=== PATIENT | female | born 1950 | race Caucasian/White ===

== ENCOUNTER 2016-12-18 11:35 | Inpatient (IN) | payer MEDICARE, OTHER ==
[~2016-12-18] VITALS: Ht 167.6 cm; Wt 47.3 kg
--- NOTE | 2016-12-18 11:41 | NUR ---
Pt arrived on unit via w/c accompanied by staff from [facility]. Belongings inventoried and bracelet sent to safe. Pt's speech is garbled and difficult to understand. Pt denied pain. She was tearful when discussing all of the recent transitions from [facility] to [facility] to here. Unable to assess orientation as she is difficult to understand. Per legal guardian, she is not to have any contact with her significant other Immanuel Barry at least for now since she is obsessive about calling him and that is one of her behaviors. Pt was compliant with assessment. Attempted to orient pt to unit and routines. Full code verified with legal guardian. Will continue to monitor.
[2016-12-18 12:21] VITALS: BP 106/73
[2016-12-18] MEDS ORDERED: MAG HYDROX/AL HYDROX/SIMETH 30 ML ORAL.SUSP PO PRN (12:30)
[2016-12-18] MEDS ORDERED: METHYL SALICYLATE/MENTHOL TOPICAL OINTMENT 29GM TUBE. TP PRN (12:30)
[2016-12-18] MEDS ORDERED: ACETAMINOPHEN 325 MG TABLET PO PRN (12:30)
[2016-12-18] MEDS ORDERED: ALBU2.5V14 NEB (13:27)
[2016-12-18] MEDS ORDERED: BACL10TA PO (13:27)
[2016-12-18] MEDS ORDERED: DIVA500T2 PO (13:29)
[2016-12-18] MEDS ORDERED: ERGO500027 PO (13:29)
[2016-12-18] MEDS ORDERED: POLY119P19 PO (13:33)
[2016-12-18] MEDS ORDERED: FLEC100T PO (13:33)
[2016-12-18] MEDS ORDERED: ASPI1TAB30 PO (13:33)
[2016-12-18] MEDS ORDERED: RISP0.5T3 PO (13:35)
[2016-12-18] MEDS ORDERED: METO25TA4 PO (13:35)
[2016-12-18] MEDS ORDERED: HYDR25CA75 PO (13:35)
[2016-12-18] MEDS ORDERED: SENN-37 PO (13:38)
[2016-12-18] MEDS ORDERED: TOPI25TA7 PO (13:38)
[2016-12-18] MEDS ORDERED: TRAM50TA PO (13:38)
[2016-12-18] MEDS ORDERED: ALBUTEROL SULFATE 2.5 MG/3 ML NEBU. NEB PRN (13:45)
[2016-12-18] MEDS ORDERED: ASA/APAP/CAFFEINE 250/250/65MG TABLET. PO PRN (13:45)
[2016-12-18 13:50] LABS: BASO # 0.1 x10^3/uL (0.0-0.2); BASO % 1 % (0-3); EOS # 0.2 x10^3/uL (0.0-0.7); EOS % 2 % (0-3); HEMATOCRIT 43.1 % (36.0-47.0); HEMOGLOBIN 14.4 g/dL (12.0-15.5); LYMPH # 1.5 x10^3/uL (1.0-4.8); LYMPH % 16 % (24-48); MEAN CORPUSCULAR HEMOGLOBIN 29 pg (25-35); MEAN CORPUSCULAR HGB CONC 33 g/dL (31-37); MEAN CORPUSCULAR VOLUME 86 fL (79-100); MONO # 0.8 x10^3/uL (0.0-1.1); MONO % 10 % (0-9); NEUT # 6.3 x10^3uL (1.8-7.7); NEUT % 72 % (31-73); PLATELET COUNT 277 x10^3/uL (140-400); RED BLOOD COUNT 5.02 x10^6/uL (3.50-5.40); RED CELL DISTRIBUTION WIDTH 13.8 % (11.5-14.5); WHITE BLOOD COUNT 8.9 x10^3/uL (4.0-11.0)
[2016-12-18 13:58] LABS: ALBUMIN 3.9 g/dL (3.4-5.0); ALBUMIN/GLOBULIN RATIO 1.1 (1.0-1.7); CALCIUM 8.7 mg/dL (8.5-10.1); GFR 55.5; MAGNESIUM 2.2 mg/dL (1.8-2.4); POTASSIUM 4.2 mmol/L (3.5-5.1); TOTAL BILIRUBIN 0.4 mg/dL (0.2-1.0); TOTAL PROTEIN 7.5 g/dL (6.4-8.2)
[2016-12-18 14:01] LABS: VAL ACID < 3 mcg/mL (50-100)
--- NOTE | 2016-12-18 14:24 | NUR ---
SW left message for Pt's Court Appointed Guardian to verify termite control service representative care plan and gather historical information. Pt. does have a significant other named Immanuel, however, due to APS involvement and Pt's current behaviors, he is not to have contact w/Pt. SW will verify w/Guardian if SW can contact Immanuel to complete Psychosocial Assessment. Pt. is unable to communicate information to this SW.
--- NOTE | 2016-12-18 14:32 | NUR ---
SW reviewed Pt. insurance upon admit. Face sheet, CSNAP and Intake state Pt.'s insurance is Medicare primary and Medicaid secondary. No auth required.
--- NOTE | 2016-12-18 14:37 | NUR ---
JEFFERY Group Note Title: BINGO!!! Activity: Provided Bingo cards and sat round table in group room. Duration: 1 hour ([id number]) Target Behavior: Directed Focus, Social Skills, Validation, OT coordination skills, Patience, Response: Pt. expressed her interest in playing the game once it had already started. Pt. has difficulty in communicating, but was accepting of help from staff and peers. PT. played until she was taken by PT.
--- NOTE | 2016-12-18 15:45 | NUR ---
THERAPEUTIC RECREATION GROUP NOTE TITLE :Coloring ACTIVITY : Arts and Crafts GOAL : Reduce stress, anxiety. Increase creativity and fine motor functioning DURATION : 45 Minutes RESPONSE : Full participation. Pt. needed repeat prompting to stay on task. She wrote "[place]" on the back of a couple pieces of paper and needed encouragement to color the other side. She was able to work independently with repeat directions and cues.
--- NOTE | 2016-12-18 16:04 | NUR ---
SW received call back from Pt's Court Appointed Guardian, Jenn Man regarding updates w/ placement and court appointments. Pt's significant other/post acute care registered nurse, Immanuel, proposed to Pt. yesterday, which is what prompted the increase in behaviors. It is alleged his proposal was in direct relation to PT's funds being safeguarded w/new Guardianship. Now, Immanuel's brother is attempting to gain Guardianship, so there is a hearing set on December 24 to further discuss temporary issues. No contact for Pt. w/Immanuel as it will become an obsession and trigger for further behaviors.
[2016-12-18 16:06] VITALS: BP 115/73
--- NOTE | 2016-12-18 16:11 | NUR ---
Psychosocial Assessment semi completed w/Pt's Court Appointed Guardian, Jenn Man. There is very little history known on Pt., and PT. is unable to communicate historical information on self. Communication w/Pt's Significant Other/previous pet care associate, Immanuel, is not advised at this time. There are ongoing court issues surrounding Immanuel's DPOA status being revoked due to PT. testing positive for Methamphetamines and Amphetamines upon admit to [facility] 09/2016. Pt's father had Dillon's Disease. Pt. developed symptoms 6-8 years ago, but appears to have progressed recently. Unsure if it may be due to her exposure/use of alternative drugs/alcohol use, etc. Pt. has no children and was previously a Business And Services Instructor.
[2016-12-18] MEDS ORDERED: ALBU2.5V5 NEB (16:12)
--- NOTE | 2016-12-18 18:41 | EKG ---
[address] [address] Test Date: 2016-12-18 Test Time: 16:05:40 Pat Name: LACEY MOORE Department: Room: [address] [place] [address] Gender: F Car Attendant: JEM : 1950 Requested By: TONEY AGGARWAL Order Number: [id number] Reading MD: Juan Ramon Corrigan Measurements Intervals [place] Rate: 67 P: 73 [place]: 196 QRS: -8 QRSD: 82 T: 29 QT: 400 QTc: 426 Interpretive Statements SINUS RHYTHM LEFTWARD AXIS QRS(T) CONTOUR ABNORMALITY CONSISTENT WITH ANTEROSEPTAL INFARCT PROBABLY OLD CONSISTENT WITH INFERIOR INFARCT PROBABLY OLD RI6.01 Unconfirmed report No previous ECG available for comparison Electronically Signed On 12-23-2016 9:34:08 CDT by Juan Ramon Corrigan
[2016-12-18] MEDS: TOPIRAMATE 25 MG TABLET. PO SCH (20:15)
[2016-12-18] MEDS: SENNOSIDES/DOCUSATE 8.6/50MG TABLET. PO SCH (20:15)
[2016-12-18] MEDS: risperiDONE 0.25 MG TABLET. PO SCH (20:15)
[2016-12-18] MEDS: FLECAINIDE 50 MG TABLET. PO SCH (20:16)
[2016-12-18] MEDS: BACLOFEN 10 MG TABLET PO SCH (20:16)
[2016-12-18] MEDS: hydrOXYzine PAMOATE 25 MG CAPSULE PO SCH (20:16)
[2016-12-18] MEDS: METOPROLOL TART IMMED RELEASE 25 MG TABLET PO SCH (20:16)
[2016-12-18] MEDS: DIVALPROEX 125 MG CAP.SPRINK PO SCH (20:16)
--- NOTE | 2016-12-18 20:51 | PDOC ---
Exam Cheng Demential Exam: Cheng Note: Please also refer to the separate dictated note~for this date of service dictated separately.~Patient seen individually. Discussed the patient with Nursing staff reviewed the chart.~Reviewed interim history and current functioning. Reviewed vital signs,~Labs/ Radiology~and current medications noted below. Continue current treatment with the changes noted in the dictated addendum note Assessment: Vital Signs: Vital Signs Date Time Temp Pulse Resp B/P (MAP) Pulse Ox O2 Delivery O2 Flow Rate FiO2 12/18/16 20:16 66 115/73 12/18/16 16:06 98.3 18 97 Labs: Laboratory Tests Test 12/18/16 13:34 White Blood Count 8.9 x10^3/uL (4.0-11.0) Red Blood Count 5.02 x10^6/uL (3.50-5.40) Hemoglobin 14.4 g/dL (12.0-15.5) Hematocrit 43.1 % (36.0-47.0) Mean Corpuscular Volume 86 fL (79-100) Mean Corpuscular Hemoglobin 29 pg (25-35) Mean Corpuscular Hemoglobin Concent 33 g/dL (31-37) Red Cell Distribution Width 13.8 % (11.5-14.5) Platelet Count 277 x10^3/uL (140-400) Neutrophils (%) (Auto) 72 % (31-73) Lymphocytes (%) (Auto) 16 % (24-48) L Monocytes (%) (Auto) 10 % (0-9) H Eosinophils (%) (Auto) 2 % (0-3) Basophils (%) (Auto) 1 % (0-3) Neutrophils # (Auto) 6.3 x10^3uL (1.8-7.7) Lymphocytes # (Auto) 1.5 x10^3/uL (1.0-4.8) Monocytes # (Auto) 0.8 x10^3/uL (0.0-1.1) Eosinophils # (Auto) 0.2 x10^3/uL (0.0-0.7) Basophils # (Auto) 0.1 x10^3/uL (0.0-0.2) Sodium Level 142 mmol/L (136-145) Potassium Level 4.2 mmol/L (3.5-5.1) Chloride Level 105 mmol/L (98-107) Carbon Dioxide Level 30 mmol/L (21-32) Anion Gap 7 (6-14) Blood Urea Nitrogen 34 mg/dL (7-20) H Creatinine 1.0 mg/dL (0.6-1.0) Estimated GFR (Cockcroft-Gault) 55.5 BUN/Creatinine Ratio 34 (6-20) H Glucose Level 136 mg/dL (70-99) H Calcium Level 8.7 mg/dL (8.5-10.1) Magnesium Level 2.2 mg/dL (1.8-2.4) Total Bilirubin 0.4 mg/dL (0.2-1.0) Aspartate Amino Transferase (AST) 15 U/L (15-37) Alanine Aminotransferase (ALT) 27 U/L (14-59) Alkaline Phosphatase 80 U/L (46-116) Total Protein 7.5 g/dL (6.4-8.2) Albumin 3.9 g/dL (3.4-5.0) Albumin/Globulin Ratio 1.1 (1.0-1.7) Valproic Acid Level < 3 mcg/mL (50-100) L Valproic Acid Last Dose Date 12/18/16 Valproic Acid Last Dose Time 0900 Current Medications: Meds: Current Medications Acetaminophen (Tylenol) 650 mg PRN Q6HRS PRN PO PAIN / TEMP; Start 12/18/16 at 12:30 Multi-Ingredient Ointment (Analgesic [place]) 1 payton PRN QID PRN TP MUSCLE PAIN; Start 12/18/16 at 12:30 Al Hydroxide/Mg Hydroxide (Mylanta Plus Xs) 15 ml PRN AFTMEALHC PRN PO DYSPEPSIA; Start 12/18/16 at 12:30 Magnesium Hydroxide (Milk Of Magnesia) 2,400 mg PRN QHS PRN PO CONSTIPATION; Start 12/18/16 at 12:30 Hydroxyzine Pamoate (Vistaril) 25 mg BID PO Last administered on 12/18/16 20:16 ; Start 12/18/16 at 21:00 Risperidone (RisperDAL) 0.25 mg PRN Q12HR PRN PO ANXIETY / AGITATION; Start 12/18/16 at 13:30 Topiramate (Topamax) 12.5 mg BID PO Last administered on 12/18/16 20:15; Start 12/18/16 at 21:00 Divalproex Sodium (Depakote Er) 500 mg DAILY PO ; Start 12/19/16 at 09:00; Stop 12/19/16 at 09:00; Status DC Albuterol Sulfate (Ventolin) 2.5 mg PRN Q4HRS PRN NEB SHORTNESS OF BREATH; Start 12/18/16 at 13:45 Acetaminophen/ Aspirin/Caffeine (Excedrin Migraine) 1 tab PRN Q6HRS PRN PO HEADACHE; Start 12/18/16 at 13:45 Baclofen (Lioresal) 10 mg BID PO Last administered on 12/18/16 20:16; Start 12/18/16 at 21:00 Ergocalciferol (Vitamin D2) 50,000 unit QMTH PO ; Start 12/21/16 at 16:00 Metoprolol Tartrate (Lopressor) 25 mg BID PO Last administered on 12/18/16 20: 16; Start 12/18/16 at 21:00 Polyethylene Glycol (miraLAX) 17 gm PRN Q12HR PRN PO CONSTIPATION; Start at 13:45 Senna/Docusate Sodium (Senna Plus) 1 tab Q12HR PO Last administered on 20:15; Start 12/18/16 at 21:00 Tramadol HCl (Ultram) 50 mg PRN Q6HRS PRN PO PAIN; Start 12/18/16 at 13:45 Flecainide Acetate (Tambocor) 50 mg Q12HR PO Last administered on 12/18/16 20: 16; Start 12/18/16 at 21:00 Risperidone (RisperDAL) 0.125 mg BID PO Last administered on 12/18/16 20:15; Start 12/18/16 at 21:00 Divalproex Sodium (Depakote Sprinkles) 250 mg BID PO Last administered on 20:16; Start 12/18/16 at 21:00 Active Scripts Active Reported Albuterol Sulfate Neb Soln (Albuterol Sulfate) 2.5 Mg/3 Ml Vial.neb 1 Vial NEB PRN Q4HRS PRN Tramadol Hcl (Tramadol HCl) 50 Mg Tablet 50 Mg PO PRN Q6HRS PRN Topiramate 25 Mg Tablet 12.5 Mg PO BID Senokot-S Tablet (Sennosides/Docusate Sodium) 1 Each Tablet 1 Tab PO Q12HR Risperidone 0.5 Mg Tablet 0.25 Mg PO PRN Q12HR PRN Metoprolol Tartrate 25 Mg Tablet 37.5 Tab PO BID Hydroxyzine Pamoate 25 Mg Capsule 1 Cap PO BID Glycolax (Polyethylene Glycol 3350) 119 Gm Powder 17 Gm PO PRN Q12HR PRN Flecainide Acetate 100 Mg Tablet 50 Mg PO Q12HR Excedrin Migraine Caplet (Aspirin/Acetaminophen/Caffeine) 1 Each Tablet 1 Each PO PRN Q6HRS PRN Vitamin D2 (Ergocalciferol (Vitamin D2)) 50,000 Unit Capsule 50,000 Unit PO QMTH Depakote (Divalproex Sodium) 500 Mg Tablet. 1 Tab PO DAILY Baclofen 10 Mg Tablet 1 Tab PO BID TONEY AGGARWAL MD Dec 18, 2016 20:51
--- NOTE | 2016-12-19 01:36 | NUR ---
Behavior Intervention Response and Plan: BIRP Note: Behavior: Assumed Care of patient, patient located in Patient Room at shift change. Patient exhibited the following behavior Calm, Compliant, Cooperative. Brief assessment on rounds of vital signs, medication needs, lab studies, and pain. Treatment plan problems Dementia with Bd and Fall Risk. Intervention: Patient assessed and the following interventions initiated safety checks 15 Minute Checks Cognitive Assessment , Head to toe Assessment , Medications. Response: After interactions and interventions patient responded in the following manner, Calm , Compliant ,Cooperative. Continue to assess behaviors and condition will continue to monitor throughout the shift as needed. Plan: Continue to monitor Master Treatment Plan for patient's progress toward short term goals of Decreased Agitation, Medication Compliance, emt intermediate goals to return to previous living setting vs placement. Continue to assess patient for changes in above assessment. Monitor for medication needs, pain, and safety concerns. Hourly rounding performed to ensure safe environment.
[2016-12-19 04:08] LABS: HEMOGLOBIN A1C 5.1 % (4.8-5.6)
[2016-12-19 06:17] VITALS: BP 114/76
[2016-12-19 07:11] LABS: T3 TOTAL 93 ng/dL (71-180); THYROXINE 7.9 ug/dL (4.5-12.0)
[2016-12-19] MEDS ORDERED: DIVALPROEX ER 500 MG TAB.ER.24H PO SCH (09:00)
[2016-12-19] MEDS: DIVALPROEX 125 MG CAP.SPRINK PO SCH ×2 (09:02→19:34)
[2016-12-19] MEDS: SENNOSIDES/DOCUSATE 8.6/50MG TABLET. PO SCH ×2 (09:02→19:34)
[2016-12-19] MEDS: FLECAINIDE 50 MG TABLET. PO SCH ×2 (09:03→19:36)
[2016-12-19] MEDS: hydrOXYzine PAMOATE 25 MG CAPSULE PO SCH ×2 (09:03→19:34)
[2016-12-19] MEDS: BACLOFEN 10 MG TABLET PO SCH ×2 (09:03→19:32)
[2016-12-19] MEDS: risperiDONE 0.25 MG TABLET. PO SCH ×2 (09:03→19:33)
[2016-12-19] MEDS: METOPROLOL TART IMMED RELEASE 25 MG TABLET PO SCH ×2 (09:04→19:32)
[2016-12-19] MEDS: TOPIRAMATE 25 MG TABLET. PO SCH ×2 (09:04→19:34)
--- NOTE | 2016-12-19 10:09 | NUR ---
Behavior Intervention Response and Plan: BIRP Note: Behavior: Assumed Care of patient, patient located in Day Room at shift change. Patient exhibited the following behavior Calm, Compliant, Cooperative. Brief assessment on rounds of vital signs, medication needs, lab studies, and pain. Treatment plan problems 1 and 2. Intervention: Patient assessed and the following interventions initiated safety checks 15 Minute Checks Cognitive Assessment , Head to toe Assessment , Medications. Response: After interactions and interventions patient responded in the following manner, Calm , Cooperative ,Compliant. Continue to assess behaviors and condition will continue to monitor throughout the shift as needed. Plan: Continue to monitor Master Treatment Plan for patient's progress toward short term goals of Decreased Agitation, Medication Compliance, termite technician goals to return to previous living setting vs placement. Continue to assess patient for changes in above assessment. Monitor for medication needs, pain, and safety concerns. Hourly rounding performed to ensure safe environment.
--- NOTE | 2016-12-19 10:10 | NUR ---
patient compliant with medications given crushed in pudding.
[2016-12-19 10:52] LABS: THYROID STIM HORMONE (TSH) 0.804 uIU/mL (0.358-3.740)
[2016-12-19 15:59] VITALS: BP 141/74
--- NOTE | 2016-12-19 16:43 | HP ---
ADMIT DATE: 12/18/2016 REASON FOR ADMISSION TO THE SENIOR BEHAVIORAL UNIT: This is a 66-year-old female who was just admitted on 12/16/2016 to [facility] [place], [place] after a lengthy hospitalization if the typing is correct from 10/10/2016 to 12/16/2016, where she had been admitted to [facility] for UTI and strep bacteremia. She has had 14 days of Zosyn. She had an extended stay at the hospital because of problems with guardianship and home situation, but since she has been at the [facility], she has required 1:1. She has been combative with staff, yelling and pushing items, throw off tables, and Risperdal has been ineffective as a p.r.n. It was noted in the nurses' notes that she was agitated since arrival and demanding to talk to Immanuel and Mayco. PAST MEDICAL HISTORY: Acute encephalopathy, polysubstance abuse, white matter disease, cerebral atrophy, [place]'s chorea. She has a history of dental abscess, she was also treated. ALLERGIES: None. MEDICATIONS: Reviewed, as stated Risperdal was prescribed, but was deemed ineffective SOCIAL HISTORY: The patient had a temporary guardian. There has been some concern about Ani Gambino, taking advantage of her financially and so, she signed a temporary guardian. Also, noted in the notes that Immanuel had brought beer into the hospital for her and was rerouted backed out. She is single. Functionality, her level of function is normally to crawl on the floor. REVIEW OF SYSTEMS: The patient states that she feels good and has no particular complaints today, but wanted me to look at her teeth. OBJECTIVE: VITAL SIGNS: Temperature is 97.3, pulse 60, respirations 16, blood pressure 114/76, pulse was 96% on room air. Height 66 inches, weight 103 pounds. GENERAL: The patient was seen in the day room. She is slumped over in a wheelchair, but alert. Her eyes were clear. Pupils were reactive. She can see 3 fingers in front of her. Her hearing is normal. Her nose was patent. Her throat was clear. She is edentulous. NECK: Supple, without adenopathy. LUNGS: Clear to auscultation. She has a Dowager's hump. CARDIOVASCULAR: Regular rhythm and rate. ABDOMEN: Soft, nontender. EXTREMITIES: Without edema. MUSCULOSKELETAL: Muscle tone is poor. NEUROLOGIC: She has made a few Georgia's chorea type movements. She is very tremulous as well. Cranial nerves: She is able to do without prompting, very tremulous doing [id number], was able to do it. She is able to lift her both legs up and down and move all her arms, shrug her shoulders, stick her tongue out. Speech is somewhat garbled and difficult to understand, although she is making full sentences. LABORATORY DATA: CBC: Normal white count, hemoglobin, hematocrit. Vitamin D 23.5. Iron 38 with total iron saturation of 10. Valproic acid level was less than 3. ASSESSMENT: A 66-year-old female with: 1. [place]'s chorea. 2. Recent discharge from hospital with adjustment issues to new facility. 3. Dementia with behavioral disturbance. 4. History of urinary tract infection with Strep bacteremia. 5. History of polysubstance abuse. 6. White matter disease. 7. Cerebral atrophy. 8. 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 9. Iron deficiency. 10. Vitamin D insufficiency. PLAN: Treat her medical conditions and follow along with Dr. Shoemaker. BRENDEN REYES DO DR: PLACIDO/evert JOB#: [id number] / [id number]
--- NOTE | 2016-12-19 17:25 | NUR ---
Patients speech is very difficult to understand. During dinner she was tearful and stated that she wants to return to the [facility] because she loves it there, they do fun activities. She also asked about Immanuel, stated she loves him and misses him. Informed PT that I would let SW know that she wants to return to previous living arrangement if possible.
--- NOTE | 2016-12-19 18:39 | NUR ---
patient choked on roll at dinner. May consider swallow study or changing diet to dysphagia III.
--- NOTE | 2016-12-19 19:37 | HP ---
ADMIT DATE: 12/18/2016 This is a late entry for 12/18/2016: The patient was seen individually for this assessment, the evening of 12/18/2016. IDENTIFYING DATA: The patient is a 66-year-old female referred to us from [facility] where she resided just for a couple of days after she was transferred there from the [facility] where she was treated for a lengthy inpatient medical hospitalization for several weeks for UTI and strep bacteremia. She was discharged on 12/16/2016. DPOA status of her significant other, Immanuel, reportedly was revoked and she was appointed a temporary guardian through the court before going to [facility]. During the brief stay at [facility] she was increasingly psychotic, agitated, crawling on the floor, kicking, spitting trying to bite, constantly asking to call Immanuel and was quite obsessive about this, spitting out her medications. She was unmanageable at the facility and they had called us initially on 12/17/2016. We had recommended using PRNs and trying other outpatient interventions, but they called us back on 12/18/2016 that patient failed all of this, was still unmanageable at the nursing facility and we admitted her to the inpatient psychiatry service. 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 At the [facility], she had neuropsychological testing on two separate occasions, found to have encephalopathy and confusion, unable to make decisions on her own. There were psychosocial events surrounding her significant other, Immanuel, and the court did appoint a legal guardian on a temporary basis for her. While at [facility], she was requiring on one-on-one status. She was combative with staff, was noted yelling pushing items, and was throwing things off the table. Risperdal was ineffective p.r.n. No clear history of bipolar disorder, suicidal or homicidal ideation. PAST PSYCHIATRIC HISTORY: As noted above including acute encephalopathy, diagnosed at [facility] and a drug screen at [facility] was positive for amphetamines, history of polysubstance abuse. CT head showed white matter disease, cerebral atrophy. MEDICAL HISTORY, Hotchkiss's chorea, hypertension, UTI, strep bacteremia, bronchitis, sepsis, dental decay, vitamin D deficiency, iron deficiency. DRUG ALLERGIES: Negative. DIET: Mechanical soft, takes her medications crushed and yoghurt. CODE STATUS: Full code. CURRENT PSYCHOTROPICS: Depakote 125 b.i.d., hydroxyzine 25 b.i.d., Risperdal p.r.n., Topamax, and Risperdal 0.125 mg b.i.d. FAMILY HISTORY: Noncontributory. 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 No past alcohol or drug abuse history noted, but as noted, her drug screen was positive for amphetamines on admission to . She has no children. VITAL SIGNS: Temperature 97.3, pulse 60, respirations 16, BP 114/78. REVIEW OF SYSTEMS: Ambulation impaired. Tremors secondary to Hotchkiss's. No CV, , pulmonary, eye system symptoms on review. MENTAL STATUS EXAMINATION: It is very difficult to understand, the patient's speech is garbled. She was able to tell me about being a director social in [place] in the past. She is oriented to herself and at times to situation, but again difficult to assess this. She has some choreiform movements consistent with Hotchkiss's and some tremulousness. Abstraction fair, computation impaired, language function intact, attention span short. Mood and affect somewhat labile. LABORATORY DATA: Reviewed. IMPRESSION: Impulse control disorder, unspecified; psychotic disorder, unspecified. 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 Rest of the diagnoses noted above including cerebral atrophy on brain scan. PLAN: Admit to the geropsychiatry unit at [facility]. I will see the patient daily individually from a psychiatric standpoint, medical followup per Dr. Andrade/Dr. Richards. Continue the patient on her current psychotropics. Check a valproic acid level, adjust these as clinically indicated. The patient apparently will need a significant amount of social service contact with her guardian since this own ongoing legal proceedings about guardianship status. Our plan would be to return back to the facility she came from when she is stable to be discharged. TONEY AGGARWAL MD DR: CECI/evert JOB#: [id number] / [id number]
[2016-12-19] MEDS: POLYETHYLENE GLYCOL 3350 17 GM PACKET. PO PRN (19:53)
--- NOTE | 2016-12-19 22:10 | PDOC ---
Exam Cheng Demential Exam: Cheng Note: Please also refer to the separate dictated note~for this date of service dictated separately.~Patient seen individually. Discussed the patient with Nursing staff reviewed the chart.~Reviewed interim history and current functioning. Reviewed vital signs,~Labs/ Radiology~and current medications noted below. Continue current treatment with the changes noted in the dictated addendum note Assessment: Vital Signs: Vital Signs Date Time Temp Pulse Resp B/P (MAP) Pulse Ox O2 Delivery O2 Flow Rate FiO2 12/19/16 19:36 71 141/74 12/19/16 15:59 97.5 18 95 12/19/16 06:17 Room Air I&O Intake and Output 12/19/16 07:00 Intake Total 480 ml Balance 480 ml Intake Oral 480 ml Current Medications: Meds: Current Medications Acetaminophen (Tylenol) 650 mg PRN Q6HRS PRN PO PAIN / TEMP; Start 12/18/16 at 12:30 Multi-Ingredient Ointment (Analgesic [place]) 1 payton PRN QID PRN TP MUSCLE PAIN; Start 12/18/16 at 12:30 Al Hydroxide/Mg Hydroxide (Mylanta Plus Xs) 15 ml PRN AFTMEALHC PRN PO DYSPEPSIA; Start 12/18/16 at 12:30 Magnesium Hydroxide (Milk Of Magnesia) 2,400 mg PRN QHS PRN PO CONSTIPATION; Start 12/18/16 at 12:30 Hydroxyzine Pamoate (Vistaril) 25 mg BID PO Last administered on 12/19/16 19:34 ; Start 12/18/16 at 21:00 Risperidone (RisperDAL) 0.25 mg PRN Q12HR PRN PO ANXIETY / AGITATION; Start 12/18/16 at 13:30 Topiramate (Topamax) 12.5 mg BID PO Last administered on 12/19/16 19:34; Start 12/18/16 at 21:00 Divalproex Sodium (Depakote Er) 500 mg DAILY PO ; Start 12/19/16 at 09:00; Stop 12/19/16 at 09:00; Status DC Albuterol Sulfate (Ventolin) 2.5 mg PRN Q4HRS PRN NEB SHORTNESS OF BREATH; Start 12/18/16 at 13:45 Acetaminophen/ Aspirin/Caffeine (Excedrin Migraine) 1 tab PRN Q6HRS PRN PO HEADACHE; Start 12/18/16 at 13:45 Baclofen (Lioresal) 10 mg BID PO Last administered on 12/19/16 19:32; Start 12/18/16 at 21:00 Ergocalciferol (Vitamin D2) 50,000 unit QMTH PO ; Start 12/21/16 at 16:00; Stop 12/21/16 at 16:00; Status DC Metoprolol Tartrate (Lopressor) 25 mg BID PO Last administered on 12/19/16 19: 32; Start 12/18/16 at 21:00 Polyethylene Glycol (miraLAX) 17 gm PRN Q12HR PRN PO CONSTIPATION Last administered on 12/19/16 19:53; Start 12/18/16 at 13:45 Senna/Docusate Sodium (Senna Plus) 1 tab Q12HR PO Last administered on 19:34; Start 12/18/16 at 21:00 Tramadol HCl (Ultram) 50 mg PRN Q6HRS PRN PO PAIN; Start 12/18/16 at 13:45 Flecainide Acetate (Tambocor) 50 mg Q12HR PO Last administered on 12/19/16 19: 36; Start 12/18/16 at 21:00 Risperidone (RisperDAL) 0.125 mg BID PO Last administered on 12/19/16 19:33; Start 12/18/16 at 21:00 Divalproex Sodium (Depakote Sprinkles) 250 mg BID PO Last administered on 19:34; Start 12/18/16 at 21:00 Ergocalciferol (Vitamin D2) 50,000 unit Q2WKS PO ; Start 12/21/16 at 16:00 Escitalopram Oxalate (Lexapro) 5 mg DAILY PO ; Start 12/20/16 at 09:00 Active Scripts Active Reported Albuterol Sulfate Neb Soln (Albuterol Sulfate) 2.5 Mg/3 Ml Vial.neb 1 Vial NEB PRN Q4HRS PRN Tramadol Hcl (Tramadol HCl) 50 Mg Tablet 50 Mg PO PRN Q6HRS PRN Topiramate 25 Mg Tablet 12.5 Mg PO BID Senokot-S Tablet (Sennosides/Docusate Sodium) 1 Each Tablet 1 Tab PO Q12HR Risperidone 0.5 Mg Tablet 0.25 Mg PO PRN Q12HR PRN Metoprolol Tartrate 25 Mg Tablet 37.5 Tab PO BID Hydroxyzine Pamoate 25 Mg Capsule 1 Cap PO BID Glycolax (Polyethylene Glycol 3350) 119 Gm Powder 17 Gm PO PRN Q12HR PRN Flecainide Acetate 100 Mg Tablet 50 Mg PO Q12HR Excedrin Migraine Caplet (Aspirin/Acetaminophen/Caffeine) 1 Each Tablet 1 Each PO PRN Q6HRS PRN Vitamin D2 (Ergocalciferol (Vitamin D2)) 50,000 Unit Capsule 50,000 Unit PO QMTH Depakote (Divalproex Sodium) 500 Mg Tablet. 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
--- NOTE | 2016-12-19 22:18 | NUR ---
Behavior Intervention Response and Plan: BIRP Note: Behavior: Assumed Care of patient, patient located in Day Room at shift change. Patient exhibited the following behavior Interactive, Able to Focus on Task, Appropriate. Brief assessment on rounds of vital signs, medication needs, lab studies, and pain. Treatment plan problems :1-2 Intervention: Patient assessed and the following interventions initiated safety checks 15 Minute Checks , Head to toe Assessment , Medications. Response: After interactions and interventions patient responded in the following manner, Interactive , Cooperative ,Able to Focus on Task. Continue to assess behaviors and condition will continue to monitor throughout the shift as needed. Plan: Continue to monitor Master Treatment Plan for patient's progress toward short term goals of Decreased Anxiety, Improved Mood, superintendent terminal goals to return to previous living setting vs placement. Continue to assess patient for changes in above assessment. Monitor for medication needs, pain, and safety concerns. Hourly rounding performed to ensure safe environment.
[2016-12-19 22:57] LABS: BILIRUBIN,URINE NEG (NEG); CLARITY,URINE CLEAR; COLOR,URINE YELLOW; GLUCOSE,URINE NEG (NEG); NITRITE,URINE NEG (NEG); UROBILINOGEN,URINE 0.2 mg/dL (0.2 mg/dL)
[2016-12-19 22:58] LABS: BACTERIA,URINE 0 /HPF (0-FEW); RBC,URINE OCC /HPF (0-2)
--- NOTE | 2016-12-20 01:13 | PN ---
DATE: 12/19/2016 SUBJECTIVE: The patient was seen on rounds the afternoon 12/19/2016. Discussed with the nursing staff, reviewed the chart. The patient slept 6-3/4 hours previous night, takes her medications crushed, it is difficult to assess orientation due to her garbled speech and confusion. REVIEW OF SYSTEMS: Ambulation impaired in a wheelchair. No CV, , pulmonary, eye system symptoms on review. Reliability poor. MENTAL STATUS EXAM: Oriented to herself. Speech garbled. Abstraction fair, computation impaired, attention span short, language function intact. Mood and affect somewhat anxious, labile. LABORATORY DATA: Reviewed. 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 PLAN: Continue Risperdal 0.125 mg b.i.d., Topamax, together with Depakote, hydroxyzine, Risperdal p.r.n. We will also go ahead and start her on Lexapro 5 mg a day as an antidepressant. Adjust further as clinically indicated. MAN Tonny AGGARWAL MD DR: CECI/evert JOB#: [id number] / [id number]
[2016-12-20 06:26] VITALS: BP 135/82
--- NOTE | 2016-12-20 08:50 | NUR ---
Behavior Intervention Response and Plan: BIRP Note: Behavior: Assumed Care of patient, patient located in Day Room at shift change. Patient exhibited the following behavior Calm, Compliant, Cooperative. Brief assessment on rounds of vital signs, medication needs, lab studies, and pain. Treatment plan problems . Intervention: Patient assessed and the following interventions initiated safety checks 15 Minute Checks Cognitive Assessment , Head to toe Assessment , Head to toe Assessment. Response: After interactions and interventions patient responded in the following manner, Interactive , Restless ,Able to Focus on Task. Continue to assess behaviors and condition will continue to monitor throughout the shift as needed. Plan: Continue to monitor Master Treatment Plan for patient's progress toward short term goals of Medication Compliance, Decreased Agitation, superintendent terminal goals to return to previous living setting vs placement. Continue to assess patient for changes in above assessment. Monitor for medication needs, pain, and safety concerns. Hourly rounding performed to ensure safe environment.
[2016-12-20] MEDS: risperiDONE 0.25 MG TABLET. PO SCH ×2 (09:55→19:57)
[2016-12-20] MEDS: hydrOXYzine PAMOATE 25 MG CAPSULE PO SCH ×2 (09:55→19:56)
[2016-12-20] MEDS: SENNOSIDES/DOCUSATE 8.6/50MG TABLET. PO SCH ×2 (09:55→19:56)
[2016-12-20] MEDS: DIVALPROEX 125 MG CAP.SPRINK PO SCH ×2 (09:55→19:56)
[2016-12-20] MEDS: BACLOFEN 10 MG TABLET PO SCH ×2 (09:55→19:56)
[2016-12-20] MEDS: TOPIRAMATE 25 MG TABLET. PO SCH ×2 (09:57→19:57)
[2016-12-20] MEDS: FLECAINIDE 50 MG TABLET. PO SCH ×2 (09:57→19:58)
[2016-12-20] MEDS: METOPROLOL TART IMMED RELEASE 25 MG TABLET PO SCH ×2 (09:58→19:58)
[2016-12-20] MEDS: ESCITALOPRAM 5 MG TABLET PO SCH (10:00)
--- NOTE | 2016-12-20 15:13 | ACF ---
Admission Criteria Forms MENTAL STATUS CHANGE Clinical Indications for Inpatient Care (Place 'X' for any and all applicable criteria): Ongoing inpatient care may be needed for 1 or more of the following(1)(2)(3)(5)( 6): [X]I. Suspected serious etiology (eg, medical disorder, [employer] event) of altered mental status [ ]II. Danger to self or others not manageable at lower level of care [ ]III. Grave disability (eg, inability to perform self care necessary at lower level of care) [ ]IV. Agitation or inappropriate behavior interfering with care for primary condition (eg, attempting to discontinue lines or drains prematurely, unable to cooperate with respiratory care) [ ]V. Delirium [A] [D][E] as described by 1 or more of the following(26): [ ]a) Delirium due to alcohol or sedative [F] withdrawal [ ]b) Delirium of uncertain etiology that has not responded to appropriate empiric treatment [ ]c) Delirium that prevents performance of a life-sustaining function (eg, feeding or hydrating oneself) [ ]. General contraindications and/or Inappropriate clinical situations for Observational Care in patients with Mental Status Change, when ANY ONE of the following is required: [ ]a) Prediction of prolongation of LOS based on ANY ONE of the following may be considered as a contraindication for observational care 2, 3, 4, 5, 6, 7, 8, 9, 10, 11 [ ]i) Age > 65 yrs. [ ]ii) Patient arriving by ambulance [ ]iii) Patient with high acuity [ ]iv) Patient requiring vital sign monitoring [ ]v) Patient on IV medication [ ]b) Systolic blood pressures greater than or equal to 180mmHg 3, 12 [ ]c) Patient with altered mental status including delirium and other alteration of consciousness, (3) [ ]d) Patient whose discharge disposition will be to a fci home or rehabilitation home should not be managed in Emergency Department Observation Unit. CMS rule requires 3 days hospital stay before such placement.3,13 [ ]e) Patient with failure to thrive due to broad array of etiologies 3,16,17 [ ]f) Inability to ambulate 3,14 Extended stay beyond goal length of stay for the primary condition may be needed until ALL of the following are present(3)(5): [ ]a) Underlying medical etiology of mental status change is absent, or has been established and adequately treated [ ]b) Danger to self or others is absent or manageable at lower level of care. [ ]c) Behavior crisis management, including physical or chemical restraints, is not required or available at lower level of car [ ]d) Substance or alcohol withdrawal is absent or manageable at lower level of care. [ ]e) Behavioral symptoms (eg, agitation, somnolence, inappropriate behavior) are absent, or are manageable at lower level of care. The original [facility] [employer] content created by [facility] has been revised. The portions of the content which have been revised are identified through the use of italic text or in bold, and [facility] has neither reviewed nor approved the modified material. All other unmodified content is copyright [facility]. Please see references footnoted in the original [facility] edition 2016 Admission Criteria Met?: Yes MAXIMILIAN MCKEON Dec 20, 2016 15:13
[2016-12-20 16:25] VITALS: BP 148/77
--- NOTE | 2016-12-20 17:00 | NUR ---
patient stated she has "stomach issues" I asked her if she meant that she was constipated and she said yes. Administered PRN miralax, and milk of mag. will continue to monitor.
[2016-12-20] MEDS: POLYETHYLENE GLYCOL 3350 17 GM PACKET. PO PRN (17:34)
[2016-12-20] MEDS: MAGNESIUM HYDROXIDE 2,400 MG/30 ML ORAL.SUSP. PO PRN (17:34)
[2016-12-20] MEDS: traMADol 50 MG TABLET PO PRN (20:01)
--- NOTE | 2016-12-20 20:14 | PDOC ---
Exam Cheng Demential Exam: Cheng Note: Please also refer to the separate dictated note~for this date of service dictated separately.~Patient seen individually. Discussed the patient with Nursing staff reviewed the chart.~Reviewed interim history and current functioning. Reviewed vital signs,~Labs/ Radiology~and current medications noted below. Continue current treatment with the changes noted in the dictated addendum note Assessment: Vital Signs: Vital Signs Date Time Temp Pulse Resp B/P (MAP) Pulse Ox O2 Delivery O2 Flow Rate FiO2 12/20/16 19:58 64 148/77 12/20/16 16:25 98.0 16 96.0 12/20/16 06:26 97 Room Air I&O Intake and Output 12/20/16 07:00 Intake Total 360 ml Balance 360 ml Intake Oral 360 ml Current Medications: Meds: Current Medications Acetaminophen (Tylenol) 650 mg PRN Q6HRS PRN PO PAIN / TEMP; Start 12/18/16 at 12:30 Multi-Ingredient Ointment (Analgesic [place]) 1 payton PRN QID PRN TP MUSCLE PAIN; Start 12/18/16 at 12:30 Al Hydroxide/Mg Hydroxide (Mylanta Plus Xs) 15 ml PRN AFTMEALHC PRN PO DYSPEPSIA; Start 12/18/16 at 12:30 Magnesium Hydroxide (Milk Of Magnesia) 2,400 mg PRN QHS PRN PO CONSTIPATION Last administered on 12/20/16 17:34; Start 12/18/16 at 12:30 Hydroxyzine Pamoate (Vistaril) 25 mg BID PO Last administered on 12/20/16 19:56 ; Start 12/18/16 at 21:00 Risperidone (RisperDAL) 0.25 mg PRN Q12HR PRN PO ANXIETY / AGITATION; Start 12/18/16 at 13:30 Topiramate (Topamax) 12.5 mg BID PO Last administered on 12/20/16 19:57; Start 12/18/16 at 21:00 Divalproex Sodium (Depakote Er) 500 mg DAILY PO ; Start 12/19/16 at 09:00; Stop 12/19/16 at 09:00; Status DC Albuterol Sulfate (Ventolin) 2.5 mg PRN Q4HRS PRN NEB SHORTNESS OF BREATH; Start 12/18/16 at 13:45 Acetaminophen/ Aspirin/Caffeine (Excedrin Migraine) 1 tab PRN Q6HRS PRN PO HEADACHE; Start 12/18/16 at 13:45 Baclofen (Lioresal) 10 mg BID PO Last administered on 12/20/16 19:56; Start 12/18/16 at 21:00 Ergocalciferol (Vitamin D2) 50,000 unit QMTH PO ; Start 12/21/16 at 16:00; Stop 12/21/16 at 16:00; Status DC Metoprolol Tartrate (Lopressor) 25 mg BID PO Last administered on 12/20/16 19: 58; Start 12/18/16 at 21:00 Polyethylene Glycol (miraLAX) 17 gm PRN Q12HR PRN PO CONSTIPATION Last administered on 12/20/16 17:34; Start 12/18/16 at 13:45 Senna/Docusate Sodium (Senna Plus) 1 tab Q12HR PO Last administered on 19:56; Start 12/18/16 at 21:00 Tramadol HCl (Ultram) 50 mg PRN Q6HRS PRN PO PAIN Last administered on 20:01; Start 12/18/16 at 13:45 Flecainide Acetate (Tambocor) 50 mg Q12HR PO Last administered on 12/20/16 19: 58; Start 12/18/16 at 21:00 Risperidone (RisperDAL) 0.125 mg BID PO Last administered on 12/20/16 19:57; Start 12/18/16 at 21:00 Divalproex Sodium (Depakote Sprinkles) 250 mg BID PO Last administered on 19:56; Start 12/18/16 at 21:00 Ergocalciferol (Vitamin D2) 50,000 unit Q2WKS PO ; Start 12/21/16 at 16:00 Escitalopram Oxalate (Lexapro) 5 mg DAILY PO Last administered on 12/20/16 10: 00; Start 12/20/16 at 09:00 Active Scripts Active Reported Albuterol Sulfate Neb Soln (Albuterol Sulfate) 2.5 Mg/3 Ml Vial.neb 1 Vial NEB PRN Q4HRS PRN Tramadol Hcl (Tramadol HCl) 50 Mg Tablet 50 Mg PO PRN Q6HRS PRN Topiramate 25 Mg Tablet 12.5 Mg PO BID Senokot-S Tablet (Sennosides/Docusate Sodium) 1 Each Tablet 1 Tab PO Q12HR Risperidone 0.5 Mg Tablet 0.25 Mg PO PRN Q12HR PRN Metoprolol Tartrate 25 Mg Tablet 37.5 Tab PO BID Hydroxyzine Pamoate 25 Mg Capsule 1 Cap PO BID Glycolax (Polyethylene Glycol 3350) 119 Gm Powder 17 Gm PO PRN Q12HR PRN Flecainide Acetate 100 Mg Tablet 50 Mg PO Q12HR Excedrin Migraine Caplet (Aspirin/Acetaminophen/Caffeine) 1 Each Tablet 1 Each PO PRN Q6HRS PRN Vitamin D2 (Ergocalciferol (Vitamin D2)) 50,000 Unit Capsule 50,000 Unit PO QMTH Depakote (Divalproex Sodium) 500 Mg Tablet. 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
--- NOTE | 2016-12-20 22:55 | NUR ---
Behavior Intervention Response and Plan: BIRP Note: Behavior: Assumed Care of patient, patient located in Day Room at shift change. Patient exhibited the following behavior Interactive, Calm, Able to Focus on Task. Brief assessment on rounds of vital signs, medication needs, lab studies, and pain. Treatment plan problems:1-2 Intervention: Patient assessed and the following interventions initiated safety checks 15 Minute Checks Cognitive Assessment , Head to toe Assessment , Medications. Response: After interactions and interventions patient responded in the following manner, Calm , Able to Focus on Task ,Anxious. Continue to assess behaviors and condition will continue to monitor throughout the shift as needed. Plan: Continue to monitor Master Treatment Plan for patient's progress toward short term goals of Decreased Anxiety, Improved Mood, skilled nursing goals to return to previous living setting vs placement. Continue to assess patient for changes in above assessment. Monitor for medication needs, pain, and safety concerns. Hourly rounding performed to ensure safe environment.
[2016-12-21 06:10] VITALS: BP 149/90
[2016-12-21 09:26] LABS: BASO # 0.1 x10^3/uL (0.0-0.2); BASO % 1 % (0-3); EOS # 0.2 x10^3/uL (0.0-0.7); EOS % 2 % (0-3); HEMATOCRIT 41.6 % (36.0-47.0); HEMOGLOBIN 13.9 g/dL (12.0-15.5); LYMPH # 1.1 x10^3/uL (1.0-4.8); LYMPH % 11 % (24-48); MEAN CORPUSCULAR HEMOGLOBIN 29 pg (25-35); MEAN CORPUSCULAR HGB CONC 33 g/dL (31-37); MEAN CORPUSCULAR VOLUME 86 fL (79-100); MONO # 0.5 x10^3/uL (0.0-1.1); MONO % 5 % (0-9); NEUT # 8.2 x10^3uL (1.8-7.7); NEUT % 81 % (31-73); PLATELET COUNT 246 x10^3/uL (140-400); RED BLOOD COUNT 4.83 x10^6/uL (3.50-5.40); RED CELL DISTRIBUTION WIDTH 13.6 % (11.5-14.5); WHITE BLOOD COUNT 10.1 x10^3/uL (4.0-11.0)
[2016-12-21 09:39] LABS: ALBUMIN 3.6 g/dL (3.4-5.0); ALK PHOS 73 U/L (46-116); ALT (SGPT) 26 U/L (14-59); ANION GAP 6 (6-14); AST (SGOT) 13 U/L (15-37); BLOOD UREA NITROGEN 23 mg/dL (7-20); BUN/CREATININE RATIO 33 (6-20); CALCIUM 8.6 mg/dL (8.5-10.1); CARBON DIOXIDE 29 mmol/L (21-32); CHLORIDE 108 mmol/L (98-107); CREATININE 0.7 mg/dL (0.6-1.0); GFR 83.7; GLUCOSE 128 mg/dL (70-99); POTASSIUM 4.5 mmol/L (3.5-5.1); SODIUM 143 mmol/L (136-145); TOTAL BILIRUBIN 0.5 mg/dL (0.2-1.0); TOTAL PROTEIN 7.1 g/dL (6.4-8.2)
[2016-12-21 09:40] LABS: VAL ACID 35 mcg/mL (50-100)
[2016-12-21] MEDS: risperiDONE 0.25 MG TABLET. PO SCH ×2 (09:55→20:12)
[2016-12-21] MEDS: hydrOXYzine PAMOATE 25 MG CAPSULE PO SCH ×2 (09:55→20:12)
[2016-12-21] MEDS: METOPROLOL TART IMMED RELEASE 25 MG TABLET PO SCH ×2 (09:55→20:11)
[2016-12-21] MEDS: SENNOSIDES/DOCUSATE 8.6/50MG TABLET. PO SCH ×2 (09:55→20:11)
[2016-12-21] MEDS: DIVALPROEX 125 MG CAP.SPRINK PO SCH ×2 (09:55→20:13)
[2016-12-21] MEDS: ESCITALOPRAM 5 MG TABLET PO SCH (09:55)
[2016-12-21] MEDS: TOPIRAMATE 25 MG TABLET. PO SCH ×2 (09:56→20:11)
[2016-12-21] MEDS: BACLOFEN 10 MG TABLET PO SCH ×2 (09:56→20:11)
[2016-12-21] MEDS: ERGOCALCIFEROL (VITAMIN D2) 50,000 UNIT CAPSULE PO SCH (09:57)
[2016-12-21] MEDS: FLECAINIDE 50 MG TABLET. PO SCH ×2 (09:57→20:22)
--- NOTE | 2016-12-21 11:15 | NUR ---
THERAPEUTIC RECREATION GROUP NOTE TITLE :Movement to Music: Flexibility ACTIVITY : Movement/ Exercise GOAL : Increase morale, attention, flexibility. Decrease stress/anxiety. DURATION : 30 Minutes RESPONSE : Full participation. Pt. followed along with every move to the best of her ability. She needed no prompting to stay on task and was pleasant.
--- NOTE | 2016-12-21 11:41 | NUR ---
SW left message for Codi at [facility] regarding status of Pt. returning at dc vs SW finding new placement for PT.
--- NOTE | 2016-12-21 13:52 | NUR ---
Behavior Intervention Response and Plan: BIRP Note: Behavior: Assumed Care of patient, patient located in Day Room at shift change. Patient exhibited the following behavior Calm, Compliant, Cooperative. Brief assessment on rounds of vital signs, medication needs, lab studies, and pain. Treatment plan problems . Intervention: Patient assessed and the following interventions initiated safety checks 15 Minute Checks Cognitive Assessment , Head to toe Assessment , Medications. Response: After interactions and interventions patient responded in the following manner, Calm , Compliant ,Cooperative. Continue to assess behaviors and condition will continue to monitor throughout the shift as needed. Plan: Continue to monitor Master Treatment Plan for patient's progress toward short term goals of Decreased Anxiety, Decreased Agitation, snf goals to return to previous living setting vs placement. Continue to assess patient for changes in above assessment. Monitor for medication needs, pain, and safety concerns. Hourly rounding performed to ensure safe environment.
--- NOTE | 2016-12-21 15:15 | NUR ---
THERAPEUTIC RECREATION GROUP NOTE TITLE :Painting Popsicle Sticks ACTIVITY : Arts and Crafts GOAL : Reduce stress, anxiety. Increase creativity and fine motor functioning DURATION : 75 Minutes RESPONSE : No participation.
--- NOTE | 2016-12-21 15:30 | NUR ---
ACTIVITY THERAPY ASSESSMENT Completed based on observations and interview on this day at this time in Pt's room. Pt. was agreeable throughout the assessment. She had difficulty remembering a few names but was able to recall most facts and details. She was flustered a when she had trouble remembering those names. Pt's arms were jerky as she talked and she has limited range of motion. Pt. is difficult to understand but will be patient when communicating and appreciated others taking time to listen. Pt. stated having no teeth makes it difficult to talk. She said she wanted to get new teeth. Pt. stated she likes to watch TV and movies and go shopping at [employer]. Her fiance, Immanuel, plays guitar and she loves listening to music. Pt. stays around group and will participate in some groups. Initial goal: Pt. will participate in all group activities she is invited to.
--- NOTE | 2016-12-21 15:36 | NUR ---
JEFFERY GROUP NOTE TITLE: Reminisce ACTIVITY: Reminisced about life, sharing stories about their pets, jobs, family etc. TIME: 2:00-2:45 TARGET BEHAVIOR: Social Skills, Validation, Therapeutic Expression RESPONSE: High
[2016-12-21] MEDS ORDERED: ERGOCALCIFEROL (VITAMIN D2) 50,000 UNIT CAPSULE PO SCH (16:00)
[2016-12-21 16:51] VITALS: BP 128/78
--- NOTE | 2016-12-21 21:11 | PDOC ---
Exam Cheng Demential Exam: Cheng Note: Please also refer to the separate dictated note~for this date of service dictated separately.~Patient seen individually. Discussed the patient with Nursing staff reviewed the chart.~Reviewed interim history and current functioning. Reviewed vital signs,~Labs/ Radiology~and current medications noted below. Continue current treatment with the changes noted in the dictated addendum note Assessment: Vital Signs: Vital Signs Date Time Temp Pulse Resp B/P (MAP) Pulse Ox O2 Delivery O2 Flow Rate FiO2 12/21/16 20:22 69 128/78 12/21/16 16:51 98.6 20 95 12/20/16 16:25 96.0 12/20/16 06:26 Room Air I&O Intake and Output 12/21/16 07:00 Intake Total 1080 ml Balance 1080 ml Intake Oral 1080 ml # Bowel Movements 1 Labs: Laboratory Tests Test 12/21/16 09:17 White Blood Count 10.1 x10^3/uL (4.0-11.0) Red Blood Count 4.83 x10^6/uL (3.50-5.40) Hemoglobin 13.9 g/dL (12.0-15.5) Hematocrit 41.6 % (36.0-47.0) Mean Corpuscular Volume 86 fL (79-100) Mean Corpuscular Hemoglobin 29 pg (25-35) Mean Corpuscular Hemoglobin Concent 33 g/dL (31-37) Red Cell Distribution Width 13.6 % (11.5-14.5) Platelet Count 246 x10^3/uL (140-400) Neutrophils (%) (Auto) 81 % (31-73) H Lymphocytes (%) (Auto) 11 % (24-48) L Monocytes (%) (Auto) 5 % (0-9) Eosinophils (%) (Auto) 2 % (0-3) Basophils (%) (Auto) 1 % (0-3) Neutrophils # (Auto) 8.2 x10^3uL (1.8-7.7) H Lymphocytes # (Auto) 1.1 x10^3/uL (1.0-4.8) Monocytes # (Auto) 0.5 x10^3/uL (0.0-1.1) Eosinophils # (Auto) 0.2 x10^3/uL (0.0-0.7) Basophils # (Auto) 0.1 x10^3/uL (0.0-0.2) Sodium Level 143 mmol/L (136-145) Potassium Level 4.5 mmol/L (3.5-5.1) Chloride Level 108 mmol/L (98-107) H Carbon Dioxide Level 29 mmol/L (21-32) Anion Gap 6 (6-14) Blood Urea Nitrogen 23 mg/dL (7-20) H Creatinine 0.7 mg/dL (0.6-1.0) Estimated GFR (Cockcroft-Gault) 83.7 BUN/Creatinine Ratio 33 (6-20) H Glucose Level 128 mg/dL (70-99) H Calcium Level 8.6 mg/dL (8.5-10.1) Total Bilirubin 0.5 mg/dL (0.2-1.0) Aspartate Amino Transferase (AST) 13 U/L (15-37) L Alanine Aminotransferase (ALT) 26 U/L (14-59) Alkaline Phosphatase 73 U/L (46-116) Total Protein 7.1 g/dL (6.4-8.2) Albumin 3.6 g/dL (3.4-5.0) Albumin/Globulin Ratio 1.0 (1.0-1.7) Valproic Acid Level 35 mcg/mL (50-100) L Valproic Acid Last Dose Date 12/20/16 Valproic Acid Last Dose Time 2100 Current Medications: Meds: Current Medications Acetaminophen (Tylenol) 650 mg PRN Q6HRS PRN PO PAIN / TEMP; Start 12/18/16 at 12:30 Multi-Ingredient Ointment (Analgesic [place]) 1 payton PRN QID PRN TP MUSCLE PAIN; Start 12/18/16 at 12:30 Al Hydroxide/Mg Hydroxide (Mylanta Plus Xs) 15 ml PRN AFTMEALHC PRN PO DYSPEPSIA; Start 12/18/16 at 12:30 Magnesium Hydroxide (Milk Of Magnesia) 2,400 mg PRN QHS PRN PO CONSTIPATION Last administered on 12/20/16 17:34; Start 12/18/16 at 12:30 Hydroxyzine Pamoate (Vistaril) 25 mg BID PO Last administered on 12/21/16 20:12 ; Start 12/18/16 at 21:00 Risperidone (RisperDAL) 0.25 mg PRN Q12HR PRN PO ANXIETY / AGITATION; Start 12/18/16 at 13:30 Topiramate (Topamax) 12.5 mg BID PO Last administered on 12/21/16 20:11; Start 12/18/16 at 21:00 Divalproex Sodium (Depakote Er) 500 mg DAILY PO ; Start 12/19/16 at 09:00; Stop 12/19/16 at 09:00; Status DC Albuterol Sulfate (Ventolin) 2.5 mg PRN Q4HRS PRN NEB SHORTNESS OF BREATH; Start 12/18/16 at 13:45 Acetaminophen/ Aspirin/Caffeine (Excedrin Migraine) 1 tab PRN Q6HRS PRN PO HEADACHE; Start 12/18/16 at 13:45 Baclofen (Lioresal) 10 mg BID PO Last administered on 12/21/16 20:11; Start 12/18/16 at 21:00 Ergocalciferol (Vitamin D2) 50,000 unit QMTH PO ; Start 12/21/16 at 16:00; Stop 12/21/16 at 16:00; Status DC Metoprolol Tartrate (Lopressor) 25 mg BID PO Last administered on 12/21/16 20: 11; Start 12/18/16 at 21:00 Polyethylene Glycol (miraLAX) 17 gm PRN Q12HR PRN PO CONSTIPATION Last administered on 12/20/16 17:34; Start 12/18/16 at 13:45 Senna/Docusate Sodium (Senna Plus) 1 tab Q12HR PO Last administered on 20:11; Start 12/18/16 at 21:00 Tramadol HCl (Ultram) 50 mg PRN Q6HRS PRN PO PAIN Last administered on 20:01; Start 12/18/16 at 13:45 Flecainide Acetate (Tambocor) 50 mg Q12HR PO Last administered on 12/21/16 20: 22; Start 12/18/16 at 21:00 Risperidone (RisperDAL) 0.125 mg BID PO Last administered on 12/21/16 20:12; Start 12/18/16 at 21:00 Divalproex Sodium (Depakote Sprinkles) 250 mg BID PO Last administered on 09:55; Start 12/18/16 at 21:00; Stop 12/21/16 at 12:37; Status DC Ergocalciferol (Vitamin D2) 50,000 unit Q2WKS PO Last administered on 12/21/16 09:57; Start 12/21/16 at 16:00 Escitalopram Oxalate (Lexapro) 5 mg DAILY PO Last administered on 12/21/16 09: 55; Start 12/20/16 at 09:00 Divalproex Sodium (Depakote Sprinkles) 375 mg BID PO Last administered on 20:13; Start 12/21/16 at 21:00 Active Scripts Active Reported Albuterol Sulfate Neb Soln (Albuterol Sulfate) 2.5 Mg/3 Ml Vial.neb 1 Vial NEB PRN Q4HRS PRN Tramadol Hcl (Tramadol HCl) 50 Mg Tablet 50 Mg PO PRN Q6HRS PRN Topiramate 25 Mg Tablet 12.5 Mg PO BID Senokot-S Tablet (Sennosides/Docusate Sodium) 1 Each Tablet 1 Tab PO Q12HR Risperidone 0.5 Mg Tablet 0.25 Mg PO PRN Q12HR PRN Metoprolol Tartrate 25 Mg Tablet 37.5 Tab PO BID Hydroxyzine Pamoate 25 Mg Capsule 1 Cap PO BID Glycolax (Polyethylene Glycol 3350) 119 Gm Powder 17 Gm PO PRN Q12HR PRN Flecainide Acetate 100 Mg Tablet 50 Mg PO Q12HR Excedrin Migraine Caplet (Aspirin/Acetaminophen/Caffeine) 1 Each Tablet 1 Each PO PRN Q6HRS PRN Vitamin D2 (Ergocalciferol (Vitamin D2)) 50,000 Unit Capsule 50,000 Unit PO QMTH Depakote (Divalproex Sodium) 500 Mg Tablet. 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
--- NOTE | 2016-12-21 23:22 | NUR ---
Behavior Intervention Response and Plan: BIRP Note: Behavior: Assumed Care of patient, patient located in Day Room at shift change. Patient exhibited the following behavior Calm, Sleeping, Cooperative. Brief assessment on rounds of vital signs, medication needs, lab studies, and pain. Treatment plan problems 1 and 2. Intervention: Patient assessed and the following interventions initiated safety checks 15 Minute Checks Cognitive Assessment , Head to toe Assessment , Medications. Response: After interactions and interventions patient responded in the following manner, Calm , Cooperative ,Compliant. Continue to assess behaviors and condition will continue to monitor throughout the shift as needed. 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 Continue to assess patient for changes in above assessment. Monitor for medication needs, pain, and safety concerns. Hourly rounding performed to ensure safe environment.
--- NOTE | 2016-12-22 01:52 | NUR ---
Nursing Note: Pt bed alarm going off, when staff entered room pt was found scooting around on her bottom on the floor. Pt was asked if she had fallen, and she stated "no". Pt was then asked if she scooted out of bed, she said "yes". No injuries noted, pt brief was changed at this time and pt assisted back to bed.
[2016-12-22 06:35] VITALS: BP 145/93
--- NOTE | 2016-12-22 07:24 | PN ---
DATE: 12/20/2016 SUBJECTIVE: This is a late entry 12/20/2016, covers elements not covered in my initial note. Per nursing report, the patient remains anxious, restless, and difficult to understand. Speech is garbled. REVIEW OF SYSTEMS: Ambulation impaired, in her wheelchair movements consistent with [place]'s. No CV, , pulmonary, or eye system symptoms on review. MENTAL STATUS EXAM: Oriented to herself and situation. Speech is difficult to understand, abstraction fair, computation impaired, language function intact, and attention span short. Mood and affect remains labile. LABORATORY DATA: Reviewed. IMPRESSION: Major neurocognitive disorder secondary to [place]'s with delusion, depression, behavioral disturbance, psychotic disorder, unspecified; anxiety disorder, unspecified; and impulse control disorder, unspecified. PLAN: Continue hydroxyzine 25 b.i.d., Lexapro 5 mg a day, Risperdal 0.125 mg b.i.d., Topamax at prior dosage, though I am not sure what benefit this would have. Depakote is 250 b.i.d. Check another level and adjust as clinically indicated. MAN Tonny AGGARWAL MD DR: CECI/evert JOB#: [id number] / [id number]
[2016-12-22] MEDS: BACLOFEN 10 MG TABLET PO SCH ×2 (07:50→19:34)
[2016-12-22] MEDS: ESCITALOPRAM 5 MG TABLET PO SCH (07:50)
[2016-12-22] MEDS: DIVALPROEX 125 MG CAP.SPRINK PO SCH ×2 (07:50→19:32)
[2016-12-22] MEDS: METOPROLOL TART IMMED RELEASE 25 MG TABLET PO SCH ×2 (07:51→19:32)
[2016-12-22] MEDS: SENNOSIDES/DOCUSATE 8.6/50MG TABLET. PO SCH ×2 (07:52→19:34)
[2016-12-22] MEDS: risperiDONE 0.25 MG TABLET. PO SCH ×2 (07:52→19:34)
[2016-12-22] MEDS: TOPIRAMATE 25 MG TABLET. PO SCH ×2 (07:54→19:32)
[2016-12-22] MEDS: hydrOXYzine PAMOATE 25 MG CAPSULE PO SCH ×2 (07:54→19:35)
[2016-12-22] MEDS: FLECAINIDE 50 MG TABLET. PO SCH ×2 (07:55→19:34)
--- NOTE | 2016-12-22 10:50 | NUR ---
Behavior Intervention Response and Plan: BIRP Note: Behavior: Assumed Care of patient, patient located in Day Room at shift change. Patient exhibited the following behavior Cooperative, Appropriate, Calm. Brief assessment on rounds of vital signs, medication needs, lab studies, and pain. Treatment plan problems 1 and 2. Intervention: Patient assessed and the following interventions initiated safety checks 15 Minute Checks Head to toe Assessment , Medications , Cognitive Assessment. Response: After interactions and interventions patient responded in the following manner, Drowsy , Cooperative ,Compliant. Continue to assess behaviors and condition will continue to monitor throughout the shift as needed. 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 Continue to assess patient for changes in above assessment. Monitor for medication needs, pain, and safety concerns. Hourly rounding performed to ensure safe environment.
--- NOTE | 2016-12-22 14:00 | NUR ---
THERAPEUTIC RECREATION GROUP NOTE TITLE :Sing along with Rebecca ACTIVITY : Music GOAL : Increase socialization, elevate mood, stimulate memory DURATION : 50 minutes RESPONSE : Minimal participation. Pt. sat quietly with the group the entire timel; however, closed her eyes most of the session.
--- NOTE | 2016-12-22 15:15 | NUR ---
THERAPEUTIC RECREATION GROUP NOTE TITLE :Music Bingo! ACTIVITY : Music GOAL : Increase socialization, elevate mood, stimulate memory DURATION : 60 minutes RESPONSE : Full participation. Pt. was able to recall nearly every song and sing verses. She needed help placing her bingo chips but was calm and pleasant the entire time.
[2016-12-22 16:51] VITALS: BP 151/81
--- NOTE | 2016-12-22 20:31 | PDOC ---
Exam Cheng Demential Exam: Cheng Note: Please also refer to the separate dictated note~for this date of service dictated separately.~Patient seen individually. Discussed the patient with Nursing staff reviewed the chart.~Reviewed interim history and current functioning. Reviewed vital signs,~Labs/ Radiology~and current medications noted below. Continue current treatment with the changes noted in the dictated addendum note Assessment: Vital Signs: Vital Signs Date Time Temp Pulse Resp B/P (MAP) Pulse Ox O2 Delivery O2 Flow Rate FiO2 12/22/16 19:34 77 151/81 12/22/16 16:51 98.2 18 96 12/20/16 16:25 96.0 12/20/16 06:26 Room Air I&O Intake and Output 12/22/16 07:00 Intake Total 1460 ml Balance 1460 ml Intake Oral 1460 ml # Voids 1 # Bowel Movements 2 Current Medications: Meds: Current Medications Acetaminophen (Tylenol) 650 mg PRN Q6HRS PRN PO PAIN / TEMP; Start 12/18/16 at 12:30 Multi-Ingredient Ointment (Analgesic [place]) 1 payton PRN QID PRN TP MUSCLE PAIN; Start 12/18/16 at 12:30 Al Hydroxide/Mg Hydroxide (Mylanta Plus Xs) 15 ml PRN AFTMEALHC PRN PO DYSPEPSIA; Start 12/18/16 at 12:30 Magnesium Hydroxide (Milk Of Magnesia) 2,400 mg PRN QHS PRN PO CONSTIPATION Last administered on 12/20/16 17:34; Start 12/18/16 at 12:30 Hydroxyzine Pamoate (Vistaril) 25 mg BID PO Last administered on 12/22/16 19:35 ; Start 12/18/16 at 21:00 Risperidone (RisperDAL) 0.25 mg PRN Q12HR PRN PO ANXIETY / AGITATION; Start 12/18/16 at 13:30 Topiramate (Topamax) 12.5 mg BID PO Last administered on 12/22/16 19:32; Start 12/18/16 at 21:00 Divalproex Sodium (Depakote Er) 500 mg DAILY PO ; Start 12/19/16 at 09:00; Stop 12/19/16 at 09:00; Status DC Albuterol Sulfate (Ventolin) 2.5 mg PRN Q4HRS PRN NEB SHORTNESS OF BREATH; Start 12/18/16 at 13:45 Acetaminophen/ Aspirin/Caffeine (Excedrin Migraine) 1 tab PRN Q6HRS PRN PO HEADACHE; Start 12/18/16 at 13:45 Baclofen (Lioresal) 10 mg BID PO Last administered on 12/22/16 19:34; Start 12/18/16 at 21:00 Ergocalciferol (Vitamin D2) 50,000 unit QMTH PO ; Start 12/21/16 at 16:00; Stop 12/21/16 at 16:00; Status DC Metoprolol Tartrate (Lopressor) 25 mg BID PO Last administered on 12/22/16 19: 32; Start 12/18/16 at 21:00 Polyethylene Glycol (miraLAX) 17 gm PRN Q12HR PRN PO CONSTIPATION Last administered on 12/20/16 17:34; Start 12/18/16 at 13:45 Senna/Docusate Sodium (Senna Plus) 1 tab Q12HR PO Last administered on 19:34; Start 12/18/16 at 21:00 Tramadol HCl (Ultram) 50 mg PRN Q6HRS PRN PO PAIN Last administered on 20:01; Start 12/18/16 at 13:45 Flecainide Acetate (Tambocor) 50 mg Q12HR PO Last administered on 12/22/16 19: 34; Start 12/18/16 at 21:00 Risperidone (RisperDAL) 0.125 mg BID PO Last administered on 12/22/16 19:34; Start 12/18/16 at 21:00 Divalproex Sodium (Depakote Sprinkles) 250 mg BID PO Last administered on 09:55; Start 12/18/16 at 21:00; Stop 12/21/16 at 12:37; Status DC Ergocalciferol (Vitamin D2) 50,000 unit Q2WKS PO Last administered on 12/21/16 09:57; Start 12/21/16 at 16:00 Escitalopram Oxalate (Lexapro) 5 mg DAILY PO Last administered on 12/22/16 07: 50; Start 12/20/16 at 09:00; Stop 12/22/16 at 16:47; Status DC Divalproex Sodium (Depakote Sprinkles) 375 mg BID PO Last administered on t 19:32; Start 12/21/16 at 21:00 Escitalopram Oxalate (Lexapro) 10 mg DAILY PO ; Start 12/23/16 at 09:00 Active Scripts Active Reported Albuterol Sulfate Neb Soln (Albuterol Sulfate) 2.5 Mg/3 Ml Vial.neb 1 Vial NEB PRN Q4HRS PRN Tramadol Hcl (Tramadol HCl) 50 Mg Tablet 50 Mg PO PRN Q6HRS PRN Topiramate 25 Mg Tablet 12.5 Mg PO BID Senokot-S Tablet (Sennosides/Docusate Sodium) 1 Each Tablet 1 Tab PO Q12HR Risperidone 0.5 Mg Tablet 0.25 Mg PO PRN Q12HR PRN Metoprolol Tartrate 25 Mg Tablet 37.5 Tab PO BID Hydroxyzine Pamoate 25 Mg Capsule 1 Cap PO BID Glycolax (Polyethylene Glycol 3350) 119 Gm Powder 17 Gm PO PRN Q12HR PRN Flecainide Acetate 100 Mg Tablet 50 Mg PO Q12HR Excedrin Migraine Caplet (Aspirin/Acetaminophen/Caffeine) 1 Each Tablet 1 Each PO PRN Q6HRS PRN Vitamin D2 (Ergocalciferol (Vitamin D2)) 50,000 Unit Capsule 50,000 Unit PO QMTH Depakote (Divalproex Sodium) 500 Mg Tablet. 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
--- NOTE | 2016-12-23 01:15 | NUR ---
Behavior Intervention Response and Plan: BIRP Note: Behavior: Assumed Care of patient, patient located in Day Room at shift change. Patient exhibited the following behavior Disorganized, Withdrawn, Restless. Brief assessment on rounds of vital signs, medication needs, lab studies, and pain. Treatment plan problems 1 and 2. Intervention: Patient assessed and the following interventions initiated safety checks 15 Minute Checks Cognitive Assessment , Head to toe Assessment , Medications. Response: After interactions and interventions patient responded in the following manner, Restless , Compliant ,Cooperative. Continue to assess behaviors and condition will continue to monitor throughout the shift as needed. 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 Continue to assess patient for changes in above assessment. Monitor for medication needs, pain, and safety concerns. Hourly rounding performed to ensure safe environment.
[2016-12-23] MEDS: risperiDONE 0.25 MG TABLET. PO PRN (01:45)
--- NOTE | 2016-12-23 01:49 | NUR ---
Nursing Note: Pt awake, laying in bed, yelling out, wailing. When asked what is wrong, pt states "I want to get up". Attempts to redirect and re-orient pt unsuccessful. PRN Risperidone administered as ordered at this time.
[2016-12-23 06:17] VITALS: BP 124/89
[2016-12-23] MEDS: FLECAINIDE 50 MG TABLET. PO SCH ×2 (08:45→19:35)
[2016-12-23] MEDS: TOPIRAMATE 25 MG TABLET. PO SCH (08:45)
[2016-12-23] MEDS: DIVALPROEX 125 MG CAP.SPRINK PO SCH ×2 (08:46→19:36)
[2016-12-23] MEDS: METOPROLOL TART IMMED RELEASE 25 MG TABLET PO SCH ×2 (08:46→19:35)
[2016-12-23] MEDS: hydrOXYzine PAMOATE 25 MG CAPSULE PO SCH ×2 (08:46→19:35)
[2016-12-23] MEDS: SENNOSIDES/DOCUSATE 8.6/50MG TABLET. PO SCH ×2 (08:46→19:35)
[2016-12-23] MEDS: risperiDONE 0.25 MG TABLET. PO SCH ×2 (08:46→19:37)
[2016-12-23] MEDS: BACLOFEN 10 MG TABLET PO SCH ×2 (08:46→19:35)
[2016-12-23] MEDS: ESCITALOPRAM 10 MG TABLET. PO SCH (08:48)
--- NOTE | 2016-12-23 08:52 | PN ---
DATE: 12/21/2016 SUBJECTIVE: This is late entry 12/21/2016, covers elements not covered in my initial note Per nursing report, the patient remains confused and withdrawn. REVIEW OF SYSTEMS: Ambulation impaired, in her wheelchair and movements consistent with [place]'s. 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 She stated she worked with ____ independent living, but when I questioned her about details about this she said "I don't remember too many of the questions." REVIEW OF SYSTEMS: Ambulation impaired in her wheelchair. Motor movement consistent with [place]'s. No CV, , pulmonary, or eye system symptoms on review. Speech is difficult to understand and somewhat garbled. MENTAL STATUS EXAM: Oriented to herself. Abstraction fair, computation impaired, language function intact, and attention span short. Mood and affect somewhat anxious and labile. LABORATORY DATA: Reviewed. IMPRESSION: Major neurocognitive disorder secondary to [place]'s with history of delusion, depression, status post delirium, anxiety disorder, unspecified; and impulse control disorder, unspecified. PLAN: Depakote was increased to 250 mg b.i.d. since level was 35, hydroxyzine 25 b.i.d., Risperdal p.r.n., and Topamax. Scheduled Risperdal and Lexapro will be continued at the current dosage. We will go ahead and increase the Lexapro to 10 mg a day. TONEY AGGARWAL MD DR: CECI/evert JOB#: [id number] / [id number]
--- NOTE | 2016-12-23 09:36 | NUR ---
Behavior Intervention Response and Plan: BIRP Note: Behavior: Assumed Care of patient, patient located in Patient Room at shift change. Patient exhibited the following behavior Calm, Wandering, Exit Seeking. Brief assessment on rounds of vital signs, medication needs, lab studies, and pain. Treatment plan problems . Intervention: Patient assessed and the following interventions initiated safety checks 15 Minute Checks Head to toe Assessment , Medications , Oral Hydration. Response: After interactions and interventions patient responded in the following manner, Disorganized , Withdrawn ,Wandering. Continue to assess behaviors and condition will continue to monitor throughout the shift as needed. 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 Continue to assess patient for changes in above assessment. Monitor for medication needs, pain, and safety concerns. Hourly rounding performed to ensure safe environment.
--- NOTE | 2016-12-23 10:15 | NUR ---
THERAPEUTIC RECREATION GROUP NOTE TITLE :Balloon Bop with Noodles ACTIVITY : Activities and Games GOAL : Increase socialization and alertness. Maintain/improve mental and physical functioning. DURATION : 60 Minutes RESPONSE : Full participation. Pt. started the group and needed no prompting to stay on task. She sang along to music as well. She left to take a shower and returned to play. She had difficulty tracking the balloon, often times swinging the noodle with no aim. She was pleasant throughout the session.
[2016-12-23 15:57] VITALS: BP 152/85
[2016-12-23] MEDS: traMADol 50 MG TABLET PO PRN (18:12)
[2016-12-23] MEDS: MIRTAZAPINE 7.5 MG TABLET. PO SCH (19:37)
--- NOTE | 2016-12-23 19:55 | PDOC ---
Exam Cheng Demential Exam: Cheng Note: Please also refer to the separate dictated note~for this date of service dictated separately.~Patient seen individually. Discussed the patient with Nursing staff reviewed the chart.~Reviewed interim history and current functioning. Reviewed vital signs,~Labs/ Radiology~and current medications noted below. Continue current treatment with the changes noted in the dictated addendum note Assessment: Vital Signs: Vital Signs Date Time Temp Pulse Resp B/P (MAP) Pulse Ox O2 Delivery O2 Flow Rate FiO2 12/23/16 19:35 66 152/85 12/23/16 19:12 16 96 Room Air 12/23/16 15:57 98.4 12/20/16 16:25 96.0 I&O Intake and Output 12/23/16 07:00 Intake Total 1040 ml Balance 1040 ml Intake Oral 1040 ml Current Medications: Meds: Current Medications Acetaminophen (Tylenol) 650 mg PRN Q6HRS PRN PO PAIN / TEMP; Start 12/18/16 at 12:30 Multi-Ingredient Ointment (Analgesic [place]) 1 payton PRN QID PRN TP MUSCLE PAIN; Start 12/18/16 at 12:30 Al Hydroxide/Mg Hydroxide (Mylanta Plus Xs) 15 ml PRN AFTMEALHC PRN PO DYSPEPSIA; Start 12/18/16 at 12:30 Magnesium Hydroxide (Milk Of Magnesia) 2,400 mg PRN QHS PRN PO CONSTIPATION Last administered on 12/20/16 17:34; Start 12/18/16 at 12:30 Hydroxyzine Pamoate (Vistaril) 25 mg BID PO Last administered on 12/23/16 19:35 ; Start 12/18/16 at 21:00 Risperidone (RisperDAL) 0.25 mg PRN Q12HR PRN PO ANXIETY / AGITATION Last administered on 12/23/16 01:45; Start 12/18/16 at 13:30 Topiramate (Topamax) 12.5 mg BID PO Last administered on 12/23/16 08:45; Start 12/18/16 at 21:00; Stop 12/23/16 at 17:47; Status DC Divalproex Sodium (Depakote Er) 500 mg DAILY PO ; Start 12/19/16 at 09:00; Stop 12/19/16 at 09:00; Status DC Albuterol Sulfate (Ventolin) 2.5 mg PRN Q4HRS PRN NEB SHORTNESS OF BREATH; Start 12/18/16 at 13:45 Acetaminophen/ Aspirin/Caffeine (Excedrin Migraine) 1 tab PRN Q6HRS PRN PO HEADACHE; Start 12/18/16 at 13:45 Baclofen (Lioresal) 10 mg BID PO Last administered on 12/23/16 19:35; Start 12/18/16 at 21:00 Ergocalciferol (Vitamin D2) 50,000 unit QMTH PO ; Start 12/21/16 at 16:00; Stop 12/21/16 at 16:00; Status DC Metoprolol Tartrate (Lopressor) 25 mg BID PO Last administered on 12/23/16 19: 35; Start 12/18/16 at 21:00 Polyethylene Glycol (miraLAX) 17 gm PRN Q12HR PRN PO CONSTIPATION Last administered on 12/20/16 17:34; Start 12/18/16 at 13:45 Senna/Docusate Sodium (Senna Plus) 1 tab Q12HR PO Last administered on 19:35; Start 12/18/16 at 21:00 Tramadol HCl (Ultram) 50 mg PRN Q6HRS PRN PO PAIN Last administered on 18:12; Start 12/18/16 at 13:45 Flecainide Acetate (Tambocor) 50 mg Q12HR PO Last administered on 12/23/16 19: 35; Start 12/18/16 at 21:00 Risperidone (RisperDAL) 0.125 mg BID PO Last administered on 12/23/16 19:37; Start 12/18/16 at 21:00 Divalproex Sodium (Depakote Sprinkles) 250 mg BID PO Last administered on 09:55; Start 12/18/16 at 21:00; Stop 12/21/16 at 12:37; Status DC Ergocalciferol (Vitamin D2) 50,000 unit Q2WKS PO Last administered on 12/21/16 09:57; Start 12/21/16 at 16:00 Escitalopram Oxalate (Lexapro) 5 mg DAILY PO Last administered on 12/22/16 07: 50; Start 12/20/16 at 09:00; Stop 12/22/16 at 16:47; Status DC Divalproex Sodium (Depakote Sprinkles) 375 mg BID PO Last administered on 08:46; Start 12/21/16 at 21:00; Stop 12/23/16 at 16:23; Status DC Escitalopram Oxalate (Lexapro) 10 mg DAILY PO Last administered on 12/23/16 08: 48; Start 12/23/16 at 09:00 Divalproex Sodium (Depakote Sprinkles) 500 mg BID PO Last administered on 19:36; Start 12/23/16 at 21:00 Mirtazapine (Remeron) 7.5 mg QHS PO Last administered on 12/23/16 19:37; Start 12/23/16 at 21:00 Active Scripts Active Reported Albuterol Sulfate Neb Soln (Albuterol Sulfate) 2.5 Mg/3 Ml Vial.neb 1 Vial NEB PRN Q4HRS PRN Tramadol Hcl (Tramadol HCl) 50 Mg Tablet 50 Mg PO PRN Q6HRS PRN Topiramate 25 Mg Tablet 12.5 Mg PO BID Senokot-S Tablet (Sennosides/Docusate Sodium) 1 Each Tablet 1 Tab PO Q12HR Risperidone 0.5 Mg Tablet 0.25 Mg PO PRN Q12HR PRN Metoprolol Tartrate 25 Mg Tablet 37.5 Tab PO BID Hydroxyzine Pamoate 25 Mg Capsule 1 Cap PO BID Glycolax (Polyethylene Glycol 3350) 119 Gm Powder 17 Gm PO PRN Q12HR PRN Flecainide Acetate 100 Mg Tablet 50 Mg PO Q12HR Excedrin Migraine Caplet (Aspirin/Acetaminophen/Caffeine) 1 Each Tablet 1 Each PO PRN Q6HRS PRN Vitamin D2 (Ergocalciferol (Vitamin D2)) 50,000 Unit Capsule 50,000 Unit PO QMTH Depakote (Divalproex Sodium) 500 Mg Tablet. 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
--- NOTE | 2016-12-23 22:46 | NUR ---
Behavior Intervention Response and Plan: BIRP Note: Behavior: Assumed Care of patient, patient located in Day Room at shift change. Patient exhibited the following behavior Restless, Anxious, Cooperative. Brief assessment on rounds of vital signs, medication needs, lab studies, and pain. Treatment plan problems 1 and 2. Intervention: Patient assessed and the following interventions initiated safety checks 15 Minute Checks Cognitive Assessment , Head to toe Assessment , Medications. Response: After interactions and interventions patient responded in the following manner, Calm , Cooperative ,Compliant. Continue to assess behaviors and condition will continue to monitor throughout the shift as needed. Plan: Continue to monitor Master Treatment Plan for patient's progress toward short term goals of Decreased Aggression, Medication Compliance, laboratory phlebotomist goals to return to previous living setting vs placement. Continue to assess patient for changes in above assessment. Monitor for medication needs, pain, and safety concerns. Hourly rounding performed to ensure safe environment.
[2016-12-24 05:59] VITALS: BP 130/81
--- NOTE | 2016-12-24 06:36 | PN ---
DATE: 12/22/2016 PSYCHIATRIC PROGRESS NOTE This is a late entry of 12/22/2016, covers elements not covered in my initial note. SUBJECTIVE: The patient slept 6 hours previous evening, scooted herself to the floor from the wheelchair witnessed by the nursing staff, no injuries noted. At one time, she was sleeping in the dayroom, somewhat sedated. Either she is sedated or crying and tearful, labile in her mood. REVIEW OF SYSTEMS: Ambulation impaired, in her wheelchair and her tremors evident consequent to [place]'s. No CV, , pulmonary, eye system symptoms on review. Reliability poor. MENTAL STATUS EXAM: Oriented to herself, at times to situation. Speech is difficult to understand, garbled, abstraction fair, computation impaired, language function intact, attention span short. Mood and affect remains labile. LABORATORY DATA: Reviewed. IMPRESSION: Major neurocognitive disorder consequent to [place]'s with delusion, depression, behavioral disturbance, major depressive disorder, recurrent. Rest unchanged. PLAN: Continue Lexapro 10 mg a day, hydroxyzine 25 b.i.d., Risperdal 0.125 b.i.d., Topamax, along with Risperdal p.r.n. and we will go ahead and increase Depakote to 500 b.i.d. Check labs level in 3 days to reach a therapeutic level. TONEY AGGARWAL MD DR: CECI/evert JOB#: [id number] / [id number]
[2016-12-24 07:00] LABS: BASO # 0.1 x10^3/uL (0.0-0.2); BASO % 1 % (0-3); EOS # 0.2 x10^3/uL (0.0-0.7); EOS % 3 % (0-3); HEMATOCRIT 38.1 % (36.0-47.0); HEMOGLOBIN 12.9 g/dL (12.0-15.5); LYMPH # 1.3 x10^3/uL (1.0-4.8); LYMPH % 16 % (24-48); MEAN CORPUSCULAR HEMOGLOBIN 29 pg (25-35); MEAN CORPUSCULAR HGB CONC 34 g/dL (31-37); MEAN CORPUSCULAR VOLUME 86 fL (79-100); MONO # 0.7 x10^3/uL (0.0-1.1); MONO % 9 % (0-9); NEUT # 5.6 x10^3uL (1.8-7.7); NEUT % 71 % (31-73); PLATELET COUNT 231 x10^3/uL (140-400); RED BLOOD COUNT 4.43 x10^6/uL (3.50-5.40); RED CELL DISTRIBUTION WIDTH 13.9 % (11.5-14.5); WHITE BLOOD COUNT 7.8 x10^3/uL (4.0-11.0)
[2016-12-24 07:11] LABS: ALK PHOS 61 U/L (46-116); ALT (SGPT) 17 U/L (14-59); ANION GAP 5 (6-14); AST (SGOT) 8 U/L (15-37); BLOOD UREA NITROGEN 21 mg/dL (7-20); BUN/CREATININE RATIO 30 (6-20); CALCIUM 8.1 mg/dL (8.5-10.1); CARBON DIOXIDE 28 mmol/L (21-32); CHLORIDE 106 mmol/L (98-107); CREATININE 0.7 mg/dL (0.6-1.0); GFR 83.7; GLUCOSE 93 mg/dL (70-99); POTASSIUM 4.3 mmol/L (3.5-5.1); SODIUM 139 mmol/L (136-145); TOTAL BILIRUBIN 0.3 mg/dL (0.2-1.0)
[2016-12-24 07:12] LABS: VAL ACID 56 mcg/mL (50-100)
[2016-12-24] MEDS: hydrOXYzine PAMOATE 25 MG CAPSULE PO SCH ×2 (08:53→20:23)
[2016-12-24] MEDS: DIVALPROEX 125 MG CAP.SPRINK PO SCH ×2 (08:53→20:23)
[2016-12-24] MEDS: BACLOFEN 10 MG TABLET PO SCH ×2 (08:53→20:23)
[2016-12-24] MEDS: SENNOSIDES/DOCUSATE 8.6/50MG TABLET. PO SCH ×2 (08:53→20:26)
[2016-12-24] MEDS: risperiDONE 0.25 MG TABLET. PO SCH ×2 (08:53→20:24)
[2016-12-24] MEDS: ESCITALOPRAM 10 MG TABLET. PO SCH (08:53)
[2016-12-24] MEDS: METOPROLOL TART IMMED RELEASE 25 MG TABLET PO SCH ×2 (08:54→20:25)
[2016-12-24] MEDS: FLECAINIDE 50 MG TABLET. PO SCH ×2 (08:55→20:27)
--- NOTE | 2016-12-24 10:09 | NUR ---
Behavior Intervention Response and Plan: BIRP Note: Behavior: Assumed Care of patient, patient located in Patient Room at shift change. Patient exhibited the following behavior Disorganized, Motor Retardation, Restless. Brief assessment on rounds of vital signs, medication needs, lab studies, and pain. Treatment plan problems . Intervention: Patient assessed and the following interventions initiated safety checks 15 Minute Checks Medications , Head to toe Assessment , Oral Hydration. Response: After interactions and interventions patient responded in the following manner, Compliant , Wandering ,Able to Focus on Task. Continue to assess behaviors and condition will continue to monitor throughout the shift as needed. 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 Continue to assess patient for changes in above assessment. Monitor for medication needs, pain, and safety concerns. Hourly rounding performed to ensure safe environment.
--- NOTE | 2016-12-24 11:20 | NUR ---
THERAPEUTIC RECREATION GROUP NOTE TITLE :Movement to Music: Flexibility ACTIVITY : Movement/ Exercise GOAL : Increase morale, attention, flexibility. Decrease stress/anxiety. DURATION : 30 Minutes RESPONSE : Moderate participation. Pt. followed along with about half of the moves, to the best of her ability. She was quiet and rested about every other move.
[2016-12-24] MEDS: traMADol 50 MG TABLET PO PRN ×2 (12:42→20:39)
[2016-12-24 15:40] VITALS: BP 116/72
--- NOTE | 2016-12-24 16:40 | NUR ---
JEFFERY received call from Shena Youngblood, APS worker at [phone] regarding the current status of PT's dc plan. JEFFERY will begin looking for new placement for Pt. and notify Shena upon dc. JEFFERY also returned a message to Pt's Court Appt. Jenn Hernández - a message was left as she was in a mtg.
[2016-12-24] MEDS: MIRTAZAPINE 7.5 MG TABLET. PO SCH (20:22)
--- NOTE | 2016-12-24 21:23 | PDOC ---
Exam Cheng Demential Exam: Cheng Note: Please also refer to the separate dictated note~for this date of service dictated separately.~Patient seen individually. Discussed the patient with Nursing staff reviewed the chart.~Reviewed interim history and current functioning. Reviewed vital signs,~Labs/ Radiology~and current medications noted below. Continue current treatment with the changes noted in the dictated addendum note Assessment: Vital Signs: Vital Signs Date Time Temp Pulse Resp B/P (MAP) Pulse Ox O2 Delivery O2 Flow Rate FiO2 12/24/16 20:39 Room Air 12/24/16 20:27 89 116/72 12/24/16 15:40 98.6 18 95 12/20/16 16:25 96.0 I&O Intake and Output 12/24/16 07:00 Intake Total 1200 ml Balance 1200 ml Intake Oral 1200 ml # Bowel Movements 1 Labs: Laboratory Tests Test 12/24/16 06:44 White Blood Count 7.8 x10^3/uL (4.0-11.0) Red Blood Count 4.43 x10^6/uL (3.50-5.40) Hemoglobin 12.9 g/dL (12.0-15.5) Hematocrit 38.1 % (36.0-47.0) Mean Corpuscular Volume 86 fL (79-100) Mean Corpuscular Hemoglobin 29 pg (25-35) Mean Corpuscular Hemoglobin Concent 34 g/dL (31-37) Red Cell Distribution Width 13.9 % (11.5-14.5) Platelet Count 231 x10^3/uL (140-400) Neutrophils (%) (Auto) 71 % (31-73) Lymphocytes (%) (Auto) 16 % (24-48) L Monocytes (%) (Auto) 9 % (0-9) Eosinophils (%) (Auto) 3 % (0-3) Basophils (%) (Auto) 1 % (0-3) Neutrophils # (Auto) 5.6 x10^3uL (1.8-7.7) Lymphocytes # (Auto) 1.3 x10^3/uL (1.0-4.8) Monocytes # (Auto) 0.7 x10^3/uL (0.0-1.1) Eosinophils # (Auto) 0.2 x10^3/uL (0.0-0.7) Basophils # (Auto) 0.1 x10^3/uL (0.0-0.2) Sodium Level 139 mmol/L (136-145) Potassium Level 4.3 mmol/L (3.5-5.1) Chloride Level 106 mmol/L (98-107) Carbon Dioxide Level 28 mmol/L (21-32) Anion Gap 5 (6-14) L Blood Urea Nitrogen 21 mg/dL (7-20) H Creatinine 0.7 mg/dL (0.6-1.0) Estimated GFR (Cockcroft-Gault) 83.7 BUN/Creatinine Ratio 30 (6-20) H Glucose Level 93 mg/dL (70-99) Calcium Level 8.1 mg/dL (8.5-10.1) L Total Bilirubin 0.3 mg/dL (0.2-1.0) Aspartate Amino Transferase (AST) 8 U/L (15-37) L Alanine Aminotransferase (ALT) 17 U/L (14-59) Alkaline Phosphatase 61 U/L (46-116) Total Protein 6.0 g/dL (6.4-8.2) L Albumin 3.0 g/dL (3.4-5.0) L Albumin/Globulin Ratio 1.0 (1.0-1.7) Valproic Acid Level 56 mcg/mL (50-100) Valproic Acid Last Dose Date 12/23/2016 Valproic Acid Last Dose Time 2100 Current Medications: Meds: Current Medications Acetaminophen (Tylenol) 650 mg PRN Q6HRS PRN PO PAIN / TEMP; Start 12/18/16 at 12:30 Multi-Ingredient Ointment (Analgesic [place]) 1 payton PRN QID PRN TP MUSCLE PAIN; Start 12/18/16 at 12:30 Al Hydroxide/Mg Hydroxide (Mylanta Plus Xs) 15 ml PRN AFTMEALHC PRN PO DYSPEPSIA; Start 12/18/16 at 12:30 Magnesium Hydroxide (Milk Of Magnesia) 2,400 mg PRN QHS PRN PO CONSTIPATION Last administered on 12/20/16 17:34; Start 12/18/16 at 12:30 Hydroxyzine Pamoate (Vistaril) 25 mg BID PO Last administered on 12/24/16 20:23 ; Start 12/18/16 at 21:00 Risperidone (RisperDAL) 0.25 mg PRN Q12HR PRN PO ANXIETY / AGITATION Last administered on 12/23/16 01:45; Start 12/18/16 at 13:30 Topiramate (Topamax) 12.5 mg BID PO Last administered on 12/23/16 08:45; Start 12/18/16 at 21:00; Stop 12/23/16 at 17:47; Status DC Divalproex Sodium (Depakote Er) 500 mg DAILY PO ; Start 12/19/16 at 09:00; Stop 12/19/16 at 09:00; Status DC Albuterol Sulfate (Ventolin) 2.5 mg PRN Q4HRS PRN NEB SHORTNESS OF BREATH; Start 12/18/16 at 13:45 Acetaminophen/ Aspirin/Caffeine (Excedrin Migraine) 1 tab PRN Q6HRS PRN PO HEADACHE; Start 12/18/16 at 13:45 Baclofen (Lioresal) 10 mg BID PO Last administered on 12/24/16 20:23; Start 12/18/16 at 21:00 Ergocalciferol (Vitamin D2) 50,000 unit QMTH PO ; Start 12/21/16 at 16:00; Stop 12/21/16 at 16:00; Status DC Metoprolol Tartrate (Lopressor) 25 mg BID PO Last administered on 12/24/16 20: 25; Start 12/18/16 at 21:00 Polyethylene Glycol (miraLAX) 17 gm PRN Q12HR PRN PO CONSTIPATION Last administered on 12/20/16 17:34; Start 12/18/16 at 13:45 Senna/Docusate Sodium (Senna Plus) 1 tab Q12HR PO Last administered on 20:26; Start 12/18/16 at 21:00 Tramadol HCl (Ultram) 50 mg PRN Q6HRS PRN PO PAIN Last administered on 20:39; Start 12/18/16 at 13:45 Flecainide Acetate (Tambocor) 50 mg Q12HR PO Last administered on 12/24/16 20: 27; Start 12/18/16 at 21:00 Risperidone (RisperDAL) 0.125 mg BID PO Last administered on 12/24/16 20:24; Start 12/18/16 at 21:00 Divalproex Sodium (Depakote Sprinkles) 250 mg BID PO Last administered on 09:55; Start 12/18/16 at 21:00; Stop 12/21/16 at 12:37; Status DC Ergocalciferol (Vitamin D2) 50,000 unit Q2WKS PO Last administered on 12/21/16 09:57; Start 12/21/16 at 16:00 Escitalopram Oxalate (Lexapro) 5 mg DAILY PO Last administered on 12/22/16 07: 50; Start 12/20/16 at 09:00; Stop 12/22/16 at 16:47; Status DC Divalproex Sodium (Depakote Sprinkles) 375 mg BID PO Last administered on 08:46; Start 12/21/16 at 21:00; Stop 12/23/16 at 16:23; Status DC Escitalopram Oxalate (Lexapro) 10 mg DAILY PO Last administered on 12/24/16 08: 53; Start 12/23/16 at 09:00 Divalproex Sodium (Depakote Sprinkles) 500 mg BID PO Last administered on 20:23; Start 12/23/16 at 21:00 Mirtazapine (Remeron) 7.5 mg QHS PO Last administered on 12/24/16 20:22; Start 12/23/16 at 21:00 Active Scripts Active Reported Albuterol Sulfate Neb Soln (Albuterol Sulfate) 2.5 Mg/3 Ml Vial.neb 1 Vial NEB PRN Q4HRS PRN Tramadol Hcl (Tramadol HCl) 50 Mg Tablet 50 Mg PO PRN Q6HRS PRN Topiramate 25 Mg Tablet 12.5 Mg PO BID Senokot-S Tablet (Sennosides/Docusate Sodium) 1 Each Tablet 1 Tab PO Q12HR Risperidone 0.5 Mg Tablet 0.25 Mg PO PRN Q12HR PRN Metoprolol Tartrate 25 Mg Tablet 37.5 Tab PO BID Hydroxyzine Pamoate 25 Mg Capsule 1 Cap PO BID Glycolax (Polyethylene Glycol 3350) 119 Gm Powder 17 Gm PO PRN Q12HR PRN Flecainide Acetate 100 Mg Tablet 50 Mg PO Q12HR Excedrin Migraine Caplet (Aspirin/Acetaminophen/Caffeine) 1 Each Tablet 1 Each PO PRN Q6HRS PRN Vitamin D2 (Ergocalciferol (Vitamin D2)) 50,000 Unit Capsule 50,000 Unit PO QMTH Depakote (Divalproex Sodium) 500 Mg Tablet.dr 1 Tab PO DAILY Baclofen 10 Mg Tablet 1 Tab PO BID Diagnosis: Problems: (1) Anxiety disorder (2) Impulse control disorder (3) Major depressive disorder, recurrent episode (4) 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
--- NOTE | 2016-12-24 21:27 | NUR ---
Nursing Note: Pt c/o pain. PRN given. Will continue to monitor.
--- NOTE | 2016-12-25 03:56 | NUR ---
Behavior Intervention Response and Plan: BIRP Note: Behavior: Assumed Care of patient, patient located in Day Room at shift change. Patient exhibited the following behavior Compliant, Disorganized, Cooperative. Brief assessment on rounds of vital signs, medication needs, lab studies, and pain. Treatment plan problems Dementia with BD, non-compliance with meds, and fall risk. Intervention: Patient assessed and the following interventions initiated safety checks 15 Minute Checks Cognitive Assessment , Head to toe Assessment , Medications. Response: After interactions and interventions patient responded in the following manner, Calm , Disorganized ,Cooperative. Continue to assess behaviors and condition will continue to monitor throughout the shift as needed. Plan: Continue to monitor Master Treatment Plan for patient's progress toward short term goals of Decreased Agitation, Medication Compliance, mcc goals to return to previous living setting vs placement. Continue to assess patient for changes in above assessment. Monitor for medication needs, pain, and safety concerns. Hourly rounding performed to ensure safe environment.
[2016-12-25 06:39] VITALS: BP 137/81
--- NOTE | 2016-12-25 10:00 | NUR ---
Behavior Intervention Response and Plan: BIRP Note: Behavior: Assumed Care of patient, patient located in Day Room at shift change. Patient exhibited the following behavior Restless, Disorganized, Compliant. Brief assessment on rounds of vital signs, medication needs, lab studies, and pain. Treatment plan problems . Intervention: Patient assessed and the following interventions initiated safety checks 15 Minute Checks Call stephenson in reach , Medications , Nutrition. Response: After interactions and interventions patient responded in the following manner, Restless , Disorganized ,Compliant. Continue to assess behaviors and condition will continue to monitor throughout the shift as needed. Plan: Continue to monitor Master Treatment Plan for patient's progress toward short term goals of Decreased Agitation, Decreased Anxiety, deposit clerk goals to return to previous living setting vs placement. Continue to assess patient for changes in above assessment. Monitor for medication needs, pain, and safety concerns. Hourly rounding performed to ensure safe environment.
[2016-12-25] MEDS: DIVALPROEX 125 MG CAP.SPRINK PO SCH ×2 (10:05→20:06)
[2016-12-25] MEDS: BACLOFEN 10 MG TABLET PO SCH ×2 (10:06→20:05)
[2016-12-25] MEDS: hydrOXYzine PAMOATE 25 MG CAPSULE PO SCH ×2 (10:06→20:05)
[2016-12-25] MEDS: risperiDONE 0.25 MG TABLET. PO SCH ×2 (10:06→20:06)
[2016-12-25] MEDS: ESCITALOPRAM 10 MG TABLET. PO SCH (10:06)
[2016-12-25] MEDS: METOPROLOL TART IMMED RELEASE 25 MG TABLET PO SCH ×2 (10:06→20:05)
[2016-12-25] MEDS: SENNOSIDES/DOCUSATE 8.6/50MG TABLET. PO SCH ×2 (10:06→20:05)
[2016-12-25] MEDS: FLECAINIDE 50 MG TABLET. PO SCH ×2 (10:07→20:06)
--- NOTE | 2016-12-25 13:12 | NUR ---
SW left message for PT's Guardian, Jenn Man, as this SW has been unable to make communication connection for the last few days.
--- NOTE | 2016-12-25 14:00 | NUR ---
THERAPEUTIC RECREATION GROUP NOTE TITLE :Movie ACTIVITY : Activities and Games GOAL : Increase alertness/focus, decrease stress DURATION : 90 Minutes RESPONSE : Minimal participation. Pt. sat quietly and calmly. She occasionally watched the movie. She kept her head down most of the time.
[2016-12-25 15:50] VITALS: BP 133/78
[2016-12-25] MEDS: MIRTAZAPINE 7.5 MG TABLET. PO SCH (20:05)
--- NOTE | 2016-12-25 21:43 | PDOC ---
Exam Cheng Demential Exam: Cheng Note: Please also refer to the separate dictated note~for this date of service dictated separately.~Patient seen individually. Discussed the patient with Nursing staff reviewed the chart.~Reviewed interim history and current functioning. Reviewed vital signs,~Labs/ Radiology~and current medications noted below. Continue current treatment with the changes noted in the dictated addendum note Assessment: Vital Signs: Vital Signs Date Time Temp Pulse Resp B/P (MAP) Pulse Ox O2 Delivery O2 Flow Rate FiO2 12/25/16 20:06 67 133/78 12/25/16 15:50 98.0 18 94 Room Air 12/20/16 16:25 96.0 I&O Intake and Output 12/25/16 07:00 Intake Total 1080 ml Balance 1080 ml Intake Oral 1080 ml Current Medications: Meds: Current Medications Acetaminophen (Tylenol) 650 mg PRN Q6HRS PRN PO PAIN / TEMP; Start 12/18/16 at 12:30 Multi-Ingredient Ointment (Analgesic [place]) 1 payton PRN QID PRN TP MUSCLE PAIN; Start 12/18/16 at 12:30 Al Hydroxide/Mg Hydroxide (Mylanta Plus Xs) 15 ml PRN AFTMEALHC PRN PO DYSPEPSIA; Start 12/18/16 at 12:30 Magnesium Hydroxide (Milk Of Magnesia) 2,400 mg PRN QHS PRN PO CONSTIPATION Last administered on 12/20/16 17:34; Start 12/18/16 at 12:30 Hydroxyzine Pamoate (Vistaril) 25 mg BID PO Last administered on 12/25/16 20:05 ; Start 12/18/16 at 21:00 Risperidone (RisperDAL) 0.25 mg PRN Q12HR PRN PO ANXIETY / AGITATION Last administered on 12/23/16 01:45; Start 12/18/16 at 13:30 Topiramate (Topamax) 12.5 mg BID PO Last administered on 12/23/16 08:45; Start 12/18/16 at 21:00; Stop 12/23/16 at 17:47; Status DC Divalproex Sodium (Depakote Er) 500 mg DAILY PO ; Start 12/19/16 at 09:00; Stop 12/19/16 at 09:00; Status DC Albuterol Sulfate (Ventolin) 2.5 mg PRN Q4HRS PRN NEB SHORTNESS OF BREATH; Start 12/18/16 at 13:45 Acetaminophen/ Aspirin/Caffeine (Excedrin Migraine) 1 tab PRN Q6HRS PRN PO HEADACHE; Start 12/18/16 at 13:45 Baclofen (Lioresal) 10 mg BID PO Last administered on 12/25/16 20:05; Start 12/18/16 at 21:00 Ergocalciferol (Vitamin D2) 50,000 unit QMTH PO ; Start 12/21/16 at 16:00; Stop 12/21/16 at 16:00; Status DC Metoprolol Tartrate (Lopressor) 25 mg BID PO Last administered on 12/25/16 20: 05; Start 12/18/16 at 21:00 Polyethylene Glycol (miraLAX) 17 gm PRN Q12HR PRN PO CONSTIPATION Last administered on 12/20/16 17:34; Start 12/18/16 at 13:45 Senna/Docusate Sodium (Senna Plus) 1 tab Q12HR PO Last administered on 20:05; Start 12/18/16 at 21:00 Tramadol HCl (Ultram) 50 mg PRN Q6HRS PRN PO PAIN Last administered on 20:39; Start 12/18/16 at 13:45 Flecainide Acetate (Tambocor) 50 mg Q12HR PO Last administered on 12/25/16 20: 06; Start 12/18/16 at 21:00 Risperidone (RisperDAL) 0.125 mg BID PO Last administered on 12/25/16 20:06; Start 12/18/16 at 21:00 Divalproex Sodium (Depakote Sprinkles) 250 mg BID PO Last administered on 09:55; Start 12/18/16 at 21:00; Stop 12/21/16 at 12:37; Status DC Ergocalciferol (Vitamin D2) 50,000 unit Q2WKS PO Last administered on 12/21/16 09:57; Start 12/21/16 at 16:00 Escitalopram Oxalate (Lexapro) 5 mg DAILY PO Last administered on 12/22/16 07: 50; Start 12/20/16 at 09:00; Stop 12/22/16 at 16:47; Status DC Divalproex Sodium (Depakote Sprinkles) 375 mg BID PO Last administered on 08:46; Start 12/21/16 at 21:00; Stop 12/23/16 at 16:23; Status DC Escitalopram Oxalate (Lexapro) 10 mg DAILY PO Last administered on 12/25/16 10: 06; Start 12/23/16 at 09:00 Divalproex Sodium (Depakote Sprinkles) 500 mg BID PO Last administered on 20:06; Start 12/23/16 at 21:00 Mirtazapine (Remeron) 7.5 mg QHS PO Last administered on 12/25/16 20:05; Start 12/23/16 at 21:00 Active Scripts Active Reported Albuterol Sulfate Neb Soln (Albuterol Sulfate) 2.5 Mg/3 Ml Vial.neb 1 Vial NEB PRN Q4HRS PRN Tramadol Hcl (Tramadol HCl) 50 Mg Tablet 50 Mg PO PRN Q6HRS PRN Topiramate 25 Mg Tablet 12.5 Mg PO BID Senokot-S Tablet (Sennosides/Docusate Sodium) 1 Each Tablet 1 Tab PO Q12HR Risperidone 0.5 Mg Tablet 0.25 Mg PO PRN Q12HR PRN Metoprolol Tartrate 25 Mg Tablet 37.5 Tab PO BID Hydroxyzine Pamoate 25 Mg Capsule 1 Cap PO BID Glycolax (Polyethylene Glycol 3350) 119 Gm Powder 17 Gm PO PRN Q12HR PRN Flecainide Acetate 100 Mg Tablet 50 Mg PO Q12HR Excedrin Migraine Caplet (Aspirin/Acetaminophen/Caffeine) 1 Each Tablet 1 Each PO PRN Q6HRS PRN Vitamin D2 (Ergocalciferol (Vitamin D2)) 50,000 Unit Capsule 50,000 Unit PO QMTH Depakote (Divalproex Sodium) 500 Mg Tablet. 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
--- NOTE | 2016-12-25 23:03 | NUR ---
Behavior Intervention Response and Plan: BIRP Note: Behavior: Assumed Care of patient, patient located in Patient Room at shift change. Patient exhibited the following behavior Restless, Disorganized, Compliant. Brief assessment on rounds of vital signs, medication needs, lab studies, and pain. Treatment plan problems Dementia W/ BD, Non-Med Compliant, and Fall Risk. Intervention: Patient assessed and the following interventions initiated safety checks 15 Minute Checks Cognitive Assessment , Head to toe Assessment , Medications. Response: After interactions and interventions patient responded in the following manner, Calm , Disorganized ,Compliant. Continue to assess behaviors and condition will continue to monitor throughout the shift as needed. Plan: Continue to monitor Master Treatment Plan for patient's progress toward short term goals of Decreased Agitation, Medication Compliance, equipment operator intermodal yard goals to return to previous living setting vs placement. Continue to assess patient for changes in above assessment. Monitor for medication needs, pain, and safety concerns. Hourly rounding performed to ensure safe environment.
--- NOTE | 2016-12-26 05:01 | PN ---
DATE: 12/23/2016 This late entry for 12/23/2016 covers elements not covered in my initial note. SUBJECTIVE: The patient was up at 01:45 a.m., yelling, wailing, got respiratory treatment, took her meds crushed. Appetite somewhat poor. REVIEW OF SYSTEMS: Ambulation impaired. No CV, , pulmonary, eye, ENT system symptoms on review. Reliability poor. MENTAL STATUS EXAM: Oriented to herself. Insight, judgment, recent and remote memory, attention, concentration, fund of knowledge poor, consistent with her diagnosis mentioned in my initial note. PLAN: Start Remeron 7.5 mg at bedtime, maintain Depakote, hydroxyzine, Risperdal, Lexapro. We will stop the Topamax. Adjust further as clinically indicated. MAN Tonny AGGARWAL MD DR: CECI/evert JOB#: [id number] / [id number]
--- NOTE | 2016-12-26 05:06 | PN ---
DATE: 12/24/2016 PSYCHIATRIC PROGRESS NOTE This is a late entry of 12/24/2016, covers elements not covered in my initial note. SUBJECTIVE: The patient remains confused, withdrawn. She was staffed at a treatment team meeting with the entire team and seen individually. Valproic acid level is 56 on 12/24/2016. REVIEW OF SYSTEMS: Ambulation impaired, in her wheelchair and had abnormal movements consequent to [place]. No CV, , pulmonary, eye, ENT system symptoms on review. Reliability poor. MENTAL STATUS EXAM: Oriented to herself. Insight, judgment, recent and remote memory, attention, concentration, fund of knowledge poor, consistent with her diagnosis mentioned in my initial note, dementia, consequent to [place] with delusion, depression, behavioral disturbance; anxiety disorder, unspecified; impulse control disorder, unspecified. PLAN: Continue psychotropics mentioned in my initial note including Remeron 7.5 at bedtime, Depakote at 500 b.i.d., level is therapeutic. TONEY AGGARWAL MD DR: CECI/evert JOB#: [id number] / [id number]
[2016-12-26 06:39] VITALS: BP 151/85
[2016-12-26 06:57] LABS: BASO # 0.1 x10^3/uL (0.0-0.2); BASO % 1 % (0-3); EOS # 0.2 x10^3/uL (0.0-0.7); EOS % 2 % (0-3); HEMATOCRIT 41.3 % (36.0-47.0); HEMOGLOBIN 13.9 g/dL (12.0-15.5); LYMPH # 1.3 x10^3/uL (1.0-4.8); LYMPH % 12 % (24-48); MEAN CORPUSCULAR HEMOGLOBIN 29 pg (25-35); MEAN CORPUSCULAR HGB CONC 34 g/dL (31-37); MEAN CORPUSCULAR VOLUME 87 fL (79-100); MONO # 0.9 x10^3/uL (0.0-1.1); MONO % 9 % (0-9); NEUT # 7.8 x10^3uL (1.8-7.7); NEUT % 76 % (31-73); PLATELET COUNT 252 x10^3/uL (140-400); RED BLOOD COUNT 4.76 x10^6/uL (3.50-5.40); RED CELL DISTRIBUTION WIDTH 13.7 % (11.5-14.5); WHITE BLOOD COUNT 10.3 x10^3/uL (4.0-11.0)
[2016-12-26 07:12] LABS: ALBUMIN 3.6 g/dL (3.4-5.0); ALBUMIN/GLOBULIN RATIO 1.1 (1.0-1.7); ALK PHOS 72 U/L (46-116); ALT (SGPT) 16 U/L (14-59); ANION GAP 8 (6-14); AST (SGOT) 10 U/L (15-37); BLOOD UREA NITROGEN 21 mg/dL (7-20); BUN/CREATININE RATIO 30 (6-20); CALCIUM 8.7 mg/dL (8.5-10.1); CARBON DIOXIDE 28 mmol/L (21-32); CHLORIDE 102 mmol/L (98-107); CREATININE 0.7 mg/dL (0.6-1.0); GFR 83.7; GLUCOSE 97 mg/dL (70-99); POTASSIUM 4.4 mmol/L (3.5-5.1); SODIUM 138 mmol/L (136-145); TOTAL BILIRUBIN 0.4 mg/dL (0.2-1.0)
[2016-12-26 07:29] LABS: VAL ACID 74 mcg/mL (50-100)
[2016-12-26] MEDS: FLECAINIDE 50 MG TABLET. PO SCH ×2 (07:52→22:00)
[2016-12-26] MEDS: ESCITALOPRAM 10 MG TABLET. PO SCH (07:52)
[2016-12-26] MEDS: DIVALPROEX 125 MG CAP.SPRINK PO SCH ×2 (07:53→21:58)
[2016-12-26] MEDS: METOPROLOL TART IMMED RELEASE 25 MG TABLET PO SCH ×2 (07:53→21:58)
[2016-12-26] MEDS: SENNOSIDES/DOCUSATE 8.6/50MG TABLET. PO SCH ×2 (07:53→21:59)
[2016-12-26] MEDS: hydrOXYzine PAMOATE 25 MG CAPSULE PO SCH ×2 (07:53→21:58)
[2016-12-26] MEDS: risperiDONE 0.25 MG TABLET. PO SCH ×2 (07:53→21:59)
[2016-12-26] MEDS: BACLOFEN 10 MG TABLET PO SCH ×2 (07:54→21:59)
--- NOTE | 2016-12-26 10:44 | NUR ---
Behavior Intervention Response and Plan: BIRP Note: Behavior: Assumed Care of patient, patient located in Dining Room at shift change. Patient exhibited the following behavior Restless, Anxious, Disorganized. Brief assessment on rounds of vital signs, medication needs, lab studies, and pain. Treatment plan problems . Intervention: Patient assessed and the following interventions initiated safety checks 15 Minute Checks Cognitive Assessment , Head to toe Assessment , Medications. Response: After interactions and interventions patient responded in the following manner, Disorganized , Restless ,Compliant. Continue to assess behaviors and condition will continue to monitor throughout the shift as needed. 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 Continue to assess patient for changes in above assessment. Monitor for medication needs, pain, and safety concerns. Hourly rounding performed to ensure safe environment.
--- NOTE | 2016-12-26 11:23 | PDOC ---
Exam Cheng Demential Exam: Cheng Note: Please also refer to the separate dictated note~for this date of service dictated separately.~Patient seen individually. Discussed the patient with Nursing staff reviewed the chart.~Reviewed interim history and current functioning. Reviewed vital signs,~Labs/ Radiology~and current medications noted below. Continue current treatment with the changes noted in the dictated addendum note Assessment: Vital Signs: Vital Signs Date Time Temp Pulse Resp B/P (MAP) Pulse Ox O2 Delivery O2 Flow Rate FiO2 12/26/16 07:53 72 151/85 12/26/16 06:39 98.5 16 94 Room Air 12/20/16 16:25 96.0 I&O Intake and Output 12/26/16 07:00 Intake Total 840 ml Balance 840 ml Intake Oral 840 ml Labs: Laboratory Tests Test 12/26/16 06:38 White Blood Count 10.3 x10^3/uL (4.0-11.0) Red Blood Count 4.76 x10^6/uL (3.50-5.40) Hemoglobin 13.9 g/dL (12.0-15.5) Hematocrit 41.3 % (36.0-47.0) Mean Corpuscular Volume 87 fL (79-100) Mean Corpuscular Hemoglobin 29 pg (25-35) Mean Corpuscular Hemoglobin Concent 34 g/dL (31-37) Red Cell Distribution Width 13.7 % (11.5-14.5) Platelet Count 252 x10^3/uL (140-400) Neutrophils (%) (Auto) 76 % (31-73) H Lymphocytes (%) (Auto) 12 % (24-48) L Monocytes (%) (Auto) 9 % (0-9) Eosinophils (%) (Auto) 2 % (0-3) Basophils (%) (Auto) 1 % (0-3) Neutrophils # (Auto) 7.8 x10^3uL (1.8-7.7) H Lymphocytes # (Auto) 1.3 x10^3/uL (1.0-4.8) Monocytes # (Auto) 0.9 x10^3/uL (0.0-1.1) Eosinophils # (Auto) 0.2 x10^3/uL (0.0-0.7) Basophils # (Auto) 0.1 x10^3/uL (0.0-0.2) Sodium Level 138 mmol/L (136-145) Potassium Level 4.4 mmol/L (3.5-5.1) Chloride Level 102 mmol/L (98-107) Carbon Dioxide Level 28 mmol/L (21-32) Anion Gap 8 (6-14) Blood Urea Nitrogen 21 mg/dL (7-20) H Creatinine 0.7 mg/dL (0.6-1.0) Estimated GFR (Cockcroft-Gault) 83.7 BUN/Creatinine Ratio 30 (6-20) H Glucose Level 97 mg/dL (70-99) Calcium Level 8.7 mg/dL (8.5-10.1) Total Bilirubin 0.4 mg/dL (0.2-1.0) Aspartate Amino Transferase (AST) 10 U/L (15-37) L Alanine Aminotransferase (ALT) 16 U/L (14-59) Alkaline Phosphatase 72 U/L (46-116) Total Protein 7.0 g/dL (6.4-8.2) Albumin 3.6 g/dL (3.4-5.0) Albumin/Globulin Ratio 1.1 (1.0-1.7) Valproic Acid Level 74 mcg/mL (50-100) Valproic Acid Last Dose Date 12/25/16 Valproic Acid Last Dose Time 2100 Current Medications: Meds: Current Medications Acetaminophen (Tylenol) 650 mg PRN Q6HRS PRN PO PAIN / TEMP; Start 12/18/16 at 12:30 Multi-Ingredient Ointment (Analgesic [place]) 1 payton PRN QID PRN TP MUSCLE PAIN; Start 12/18/16 at 12:30 Al Hydroxide/Mg Hydroxide (Mylanta Plus Xs) 15 ml PRN AFTMEALHC PRN PO DYSPEPSIA; Start 12/18/16 at 12:30 Magnesium Hydroxide (Milk Of Magnesia) 2,400 mg PRN QHS PRN PO CONSTIPATION Last administered on 12/20/16 17:34; Start 12/18/16 at 12:30 Hydroxyzine Pamoate (Vistaril) 25 mg BID PO Last administered on 12/26/16 07: 53; Start 12/18/16 at 21:00 Risperidone (RisperDAL) 0.25 mg PRN Q12HR PRN PO ANXIETY / AGITATION Last administered on 12/23/16 01:45; Start 12/18/16 at 13:30 Topiramate (Topamax) 12.5 mg BID PO Last administered on 12/23/16 08:45; Start 12/18/16 at 21:00; Stop 12/23/16 at 17:47; Status DC Divalproex Sodium (Depakote Er) 500 mg DAILY PO ; Start 12/19/16 at 09:00; Stop 12/19/16 at 09:00; Status DC Albuterol Sulfate (Ventolin) 2.5 mg PRN Q4HRS PRN NEB SHORTNESS OF BREATH; Start 12/18/16 at 13:45 Acetaminophen/ Aspirin/Caffeine (Excedrin Migraine) 1 tab PRN Q6HRS PRN PO HEADACHE; Start 12/18/16 at 13:45 Baclofen (Lioresal) 10 mg BID PO Last administered on 12/26/16 07:54; Start at 21:00 Ergocalciferol (Vitamin D2) 50,000 unit QMTH PO ; Start 12/21/16 at 16:00; Stop 12/21/16 at 16:00; Status DC Metoprolol Tartrate (Lopressor) 25 mg BID PO Last administered on 12/26/16 07: 53; Start 12/18/16 at 21:00 Polyethylene Glycol (miraLAX) 17 gm PRN Q12HR PRN PO CONSTIPATION Last administered on 12/20/16 17:34; Start 12/18/16 at 13:45 Senna/Docusate Sodium (Senna Plus) 1 tab Q12HR PO Last administered on 07:53; Start 12/18/16 at 21:00 Tramadol HCl (Ultram) 50 mg PRN Q6HRS PRN PO PAIN Last administered on 20:39; Start 12/18/16 at 13:45 Flecainide Acetate (Tambocor) 50 mg Q12HR PO Last administered on 12/26/16 07: 52; Start 12/18/16 at 21:00 Risperidone (RisperDAL) 0.125 mg BID PO Last administered on 12/26/16 07:53; Start 12/18/16 at 21:00 Divalproex Sodium (Depakote Sprinkles) 250 mg BID PO Last administered on 09:55; Start 12/18/16 at 21:00; Stop 12/21/16 at 12:37; Status DC Ergocalciferol (Vitamin D2) 50,000 unit Q2WKS PO Last administered on 12/21/16 09:57; Start 12/21/16 at 16:00 Escitalopram Oxalate (Lexapro) 5 mg DAILY PO Last administered on 12/22/16 07: 50; Start 12/20/16 at 09:00; Stop 12/22/16 at 16:47; Status DC Divalproex Sodium (Depakote Sprinkles) 375 mg BID PO Last administered on 08:46; Start 12/21/16 at 21:00; Stop 12/23/16 at 16:23; Status DC Escitalopram Oxalate (Lexapro) 10 mg DAILY PO Last administered on 12/26/16 07 :52; Start 12/23/16 at 09:00 Divalproex Sodium (Depakote Sprinkles) 500 mg BID PO Last administered on 07:53; Start 12/23/16 at 21:00 Mirtazapine (Remeron) 7.5 mg QHS PO Last administered on 12/25/16 20:05; Start 12/23/16 at 21:00 Active Scripts Active Reported Albuterol Sulfate Neb Soln (Albuterol Sulfate) 2.5 Mg/3 Ml Vial.neb 1 Vial NEB PRN Q4HRS PRN Tramadol Hcl (Tramadol HCl) 50 Mg Tablet 50 Mg PO PRN Q6HRS PRN Topiramate 25 Mg Tablet 12.5 Mg PO BID Senokot-S Tablet (Sennosides/Docusate Sodium) 1 Each Tablet 1 Tab PO Q12HR Risperidone 0.5 Mg Tablet 0.25 Mg PO PRN Q12HR PRN Metoprolol Tartrate 25 Mg Tablet 37.5 Tab PO BID Hydroxyzine Pamoate 25 Mg Capsule 1 Cap PO BID Glycolax (Polyethylene Glycol 3350) 119 Gm Powder 17 Gm PO PRN Q12HR PRN Flecainide Acetate 100 Mg Tablet 50 Mg PO Q12HR Excedrin Migraine Caplet (Aspirin/Acetaminophen/Caffeine) 1 Each Tablet 1 Each PO PRN Q6HRS PRN Vitamin D2 (Ergocalciferol (Vitamin D2)) 50,000 Unit Capsule 50,000 Unit PO QMTH Depakote (Divalproex Sodium) 500 Mg Tablet. 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
[2016-12-26 15:55] VITALS: BP 156/79
--- NOTE | 2016-12-26 16:09 | NUR ---
pt up in wc. occasionall cries out for help and bouts of tearfulness. compliant with meds and cares.
[2016-12-26] MEDS: MIRTAZAPINE 7.5 MG TABLET. PO SCH (21:58)
--- NOTE | 2016-12-26 23:00 | NUR ---
Behavior Intervention Response and Plan: BIRP Note: Behavior: Assumed Care of patient, patient located in Patient Room at shift change. Patient exhibited the following behavior Disorganized, Compliant, Restless. Brief assessment on rounds of vital signs, medication needs, lab studies, and pain. Treatment plan problems . Intervention: Patient assessed and the following interventions initiated safety checks 15 Minute Checks Call stephenson in reach , Personal Alarm in place , Medications. Response: After interactions and interventions patient responded in the following manner, Disorganized , Restless ,Compliant. Continue to assess behaviors and condition will continue to monitor throughout the shift as needed. 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 Continue to assess patient for changes in above assessment. Monitor for medication needs, pain, and safety concerns. Hourly rounding performed to ensure safe environment.
[2016-12-27 06:17] VITALS: BP 159/89
[2016-12-27] MEDS: ESCITALOPRAM 10 MG TABLET. PO SCH (08:26)
[2016-12-27] MEDS: BACLOFEN 10 MG TABLET PO SCH ×2 (08:26→20:07)
[2016-12-27] MEDS: risperiDONE 0.25 MG TABLET. PO SCH ×2 (08:26→20:04)
[2016-12-27] MEDS: DIVALPROEX 125 MG CAP.SPRINK PO SCH ×2 (08:26→20:04)
[2016-12-27] MEDS: SENNOSIDES/DOCUSATE 8.6/50MG TABLET. PO SCH ×2 (08:26→20:07)
[2016-12-27] MEDS: METOPROLOL TART IMMED RELEASE 25 MG TABLET PO SCH ×2 (08:27→20:03)
[2016-12-27] MEDS: hydrOXYzine PAMOATE 25 MG CAPSULE PO SCH ×2 (08:27→20:04)
[2016-12-27] MEDS: FLECAINIDE 50 MG TABLET. PO SCH ×2 (11:14→20:07)
--- NOTE | 2016-12-27 11:32 | NUR ---
Behavior Intervention Response and Plan: BIRP Note: Behavior: Assumed Care of patient, patient located in Day Room at shift change. Patient exhibited the following behavior Restless, Anxious, Disorganized. Brief assessment on rounds of vital signs, medication needs, lab studies, and pain. Treatment plan problems . Intervention: Patient assessed and the following interventions initiated safety checks 15 Minute Checks Cognitive Assessment , Head to toe Assessment , Medications. Response: After interactions and interventions patient responded in the following manner, Disorganized , Restless ,Compliant. Continue to assess behaviors and condition will continue to monitor throughout the shift as needed. 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 Continue to assess patient for changes in above assessment. Monitor for medication needs, pain, and safety concerns. Hourly rounding performed to ensure safe environment.
[2016-12-27 16:42] VITALS: BP 120/80
[2016-12-27] MEDS: MIRTAZAPINE 7.5 MG TABLET. PO SCH (20:07)
[2016-12-27] MEDS: traZODone 50 MG TABLET. PO SCH (20:07)
--- NOTE | 2016-12-27 21:24 | PDOC ---
Exam Cheng Demential Exam: Cheng Note: Please also refer to the separate dictated note~for this date of service dictated separately.~Patient seen individually. Discussed the patient with Nursing staff reviewed the chart.~Reviewed interim history and current functioning. Reviewed vital signs,~Labs/ Radiology~and current medications noted below. Continue current treatment with the changes noted in the dictated addendum note Assessment: Vital Signs: Vital Signs Date Time Temp Pulse Resp B/P (MAP) Pulse Ox O2 Delivery O2 Flow Rate FiO2 12/27/16 20:07 68 120/80 12/27/16 16:42 97.6 18 99 12/26/16 06:39 Room Air I&O Intake and Output 12/27/16 07:00 Intake Total 1680 ml Balance 1680 ml Intake Oral 1680 ml # Voids 1 # Bowel Movements 1 Current Medications: Meds: Current Medications Acetaminophen (Tylenol) 650 mg PRN Q6HRS PRN PO PAIN / TEMP; Start 12/18/16 at 12:30 Multi-Ingredient Ointment (Analgesic [place]) 1 payton PRN QID PRN TP MUSCLE PAIN; Start 12/18/16 at 12:30 Al Hydroxide/Mg Hydroxide (Mylanta Plus Xs) 15 ml PRN AFTMEALHC PRN PO DYSPEPSIA; Start 12/18/16 at 12:30 Magnesium Hydroxide (Milk Of Magnesia) 2,400 mg PRN QHS PRN PO CONSTIPATION Last administered on 12/20/16 17:34; Start 12/18/16 at 12:30 Hydroxyzine Pamoate (Vistaril) 25 mg BID PO Last administered on 12/27/16 20: 04; Start 12/18/16 at 21:00 Risperidone (RisperDAL) 0.25 mg PRN Q12HR PRN PO ANXIETY / AGITATION Last administered on 12/23/16 01:45; Start 12/18/16 at 13:30 Topiramate (Topamax) 12.5 mg BID PO Last administered on 12/23/16 08:45; Start 12/18/16 at 21:00; Stop 12/23/16 at 17:47; Status DC Divalproex Sodium (Depakote Er) 500 mg DAILY PO ; Start 12/19/16 at 09:00; Stop 12/19/16 at 09:00; Status DC Albuterol Sulfate (Ventolin) 2.5 mg PRN Q4HRS PRN NEB SHORTNESS OF BREATH; Start 12/18/16 at 13:45 Acetaminophen/ Aspirin/Caffeine (Excedrin Migraine) 1 tab PRN Q6HRS PRN PO HEADACHE; Start 12/18/16 at 13:45 Baclofen (Lioresal) 10 mg BID PO Last administered on 12/27/16 20:07; Start at 21:00 Ergocalciferol (Vitamin D2) 50,000 unit QMTH PO ; Start 12/21/16 at 16:00; Stop 12/21/16 at 16:00; Status DC Metoprolol Tartrate (Lopressor) 25 mg BID PO Last administered on 12/27/16 20: 03; Start 12/18/16 at 21:00 Polyethylene Glycol (miraLAX) 17 gm PRN Q12HR PRN PO CONSTIPATION Last administered on 12/20/16 17:34; Start 12/18/16 at 13:45 Senna/Docusate Sodium (Senna Plus) 1 tab Q12HR PO Last administered on 20:07; Start 12/18/16 at 21:00 Tramadol HCl (Ultram) 50 mg PRN Q6HRS PRN PO PAIN Last administered on 20:39; Start 12/18/16 at 13:45 Flecainide Acetate (Tambocor) 50 mg Q12HR PO Last administered on 12/27/16 20: 07; Start 12/18/16 at 21:00 Risperidone (RisperDAL) 0.125 mg BID PO Last administered on 12/27/16 20:04; Start 12/18/16 at 21:00 Divalproex Sodium (Depakote Sprinkles) 250 mg BID PO Last administered on 09:55; Start 12/18/16 at 21:00; Stop 12/21/16 at 12:37; Status DC Ergocalciferol (Vitamin D2) 50,000 unit Q2WKS PO Last administered on 12/21/16 09:57; Start 12/21/16 at 16:00 Escitalopram Oxalate (Lexapro) 5 mg DAILY PO Last administered on 12/22/16 07: 50; Start 12/20/16 at 09:00; Stop 12/22/16 at 16:47; Status DC Divalproex Sodium (Depakote Sprinkles) 375 mg BID PO Last administered on 08:46; Start 12/21/16 at 21:00; Stop 12/23/16 at 16:23; Status DC Escitalopram Oxalate (Lexapro) 10 mg DAILY PO Last administered on 12/27/16 08 :26; Start 12/23/16 at 09:00 Divalproex Sodium (Depakote Sprinkles) 500 mg BID PO Last administered on 20:04; Start 12/23/16 at 21:00 Mirtazapine (Remeron) 7.5 mg QHS PO Last administered on 12/26/16 21:58; Start 12/23/16 at 21:00; Stop 12/27/16 at 18:49; Status DC Mirtazapine (Remeron) 15 mg QHS PO Last administered on 12/27/16 20:07; Start 12/27/16 at 21:00 Trazodone HCl (Desyrel) 50 mg QHS PO Last administered on 12/27/16 20:07; Start 12/27/16 at 21:00 Active Scripts Active Reported Albuterol Sulfate Neb Soln (Albuterol Sulfate) 2.5 Mg/3 Ml Vial.neb 1 Vial NEB PRN Q4HRS PRN Tramadol Hcl (Tramadol HCl) 50 Mg Tablet 50 Mg PO PRN Q6HRS PRN Topiramate 25 Mg Tablet 12.5 Mg PO BID Senokot-S Tablet (Sennosides/Docusate Sodium) 1 Each Tablet 1 Tab PO Q12HR Risperidone 0.5 Mg Tablet 0.25 Mg PO PRN Q12HR PRN Metoprolol Tartrate 25 Mg Tablet 37.5 Tab PO BID Hydroxyzine Pamoate 25 Mg Capsule 1 Cap PO BID Glycolax (Polyethylene Glycol 3350) 119 Gm Powder 17 Gm PO PRN Q12HR PRN Flecainide Acetate 100 Mg Tablet 50 Mg PO Q12HR Excedrin Migraine Caplet (Aspirin/Acetaminophen/Caffeine) 1 Each Tablet 1 Each PO PRN Q6HRS PRN Vitamin D2 (Ergocalciferol (Vitamin D2)) 50,000 Unit Capsule 50,000 Unit PO QMTH Depakote (Divalproex Sodium) 500 Mg Tablet.dr 1 Tab PO DAILY Baclofen 10 Mg Tablet 1 Tab PO BID Diagnosis: Problems: (1) Anxiety disorder (2) Impulse control disorder (3) Major depressive disorder, recurrent episode (4) 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
--- NOTE | 2016-12-27 23:07 | NUR ---
Behavior Intervention Response and Plan: BIRP Note: Behavior: Assumed Care of patient, patient located in Day Room at shift change. Patient exhibited the following behavior Calm, Withdrawn, Cooperative. Brief assessment on rounds of vital signs, medication needs, lab studies, and pain. Treatment plan problems 1 and 2. Intervention: Patient assessed and the following interventions initiated safety checks 15 Minute Checks Cognitive Assessment , Head to toe Assessment , Medications. Response: After interactions and interventions patient responded in the following manner, Calm , Compliant ,Cooperative. Continue to assess behaviors and condition will continue to monitor throughout the shift as needed. 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 Continue to assess patient for changes in above assessment. Monitor for medication needs, pain, and safety concerns. Hourly rounding performed to ensure safe environment.
--- NOTE | 2016-12-27 23:40 | PN ---
DATE: 12/26/2016 PSYCHIATRIC PROGRESS NOTE This is a late entry of 12/26/2016 covers elements not covered in my initial note. SUBJECTIVE: The patient remains confused, difficult to understand, tearful, cat calling at times. REVIEW OF SYSTEMS: Ambulation impaired in a wheelchair, complains of GI distress, received Mylanta. No CV, , pulmonary, eye system symptoms on review. MENTAL STATUS EXAM: Oriented to herself. Insight, judgment, recent and remote memory, attention, concentration, fund of knowledge poor, consistent with her diagnosis mentioned in my initial note. PLAN: Continue psychotropics mentioned in my initial note. Adjust as clinically indicated. MAN Tonny AGGARWAL MD DR: CECI/evert JOB#: [id number] / [id number]
--- NOTE | 2016-12-27 23:43 | PN ---
DATE: 12/25/2016 PSYCHIATRIC PROGRESS NOTE This late entry of 12/25/2016, covers elements not covered in my initial note. SUBJECTIVE: The patient remains confused, difficult to understand, garbled speech, crying in her sleep, reportedly having nightmares. REVIEW OF SYSTEMS: Ambulation impaired, in a wheelchair. No CV, , pulmonary, eye system symptoms on review. MENTAL STATUS EXAM: Oriented to herself. Speech, low in volume, difficult to understand. Insight, judgment, recent memory is impaired. Mood and affect labile, anxious. IMPRESSION: Unchanged from initial note. Major neurocognitive disorder consequent to [place] with delusion, depression. Rest unchanged. PLAN: Continue psychotropics mentioned in my initial note including Remeron 7.5 at bedtime. MAN Tonny AGGARWAL MD DR: CECI/evert JOB#: [id number] / [id number]
[2016-12-28 06:28] VITALS: BP 115/73
[2016-12-28] MEDS: FLECAINIDE 50 MG TABLET. PO SCH ×2 (08:28→20:27)
[2016-12-28] MEDS: ESCITALOPRAM 10 MG TABLET. PO SCH (08:33)
[2016-12-28] MEDS: hydrOXYzine PAMOATE 25 MG CAPSULE PO SCH ×2 (08:33→20:23)
[2016-12-28] MEDS: BACLOFEN 10 MG TABLET PO SCH ×2 (08:33→20:21)
[2016-12-28] MEDS: SENNOSIDES/DOCUSATE 8.6/50MG TABLET. PO SCH ×2 (08:33→20:23)
[2016-12-28] MEDS: METOPROLOL TART IMMED RELEASE 25 MG TABLET PO SCH ×2 (08:34→20:22)
[2016-12-28] MEDS: DIVALPROEX 125 MG CAP.SPRINK PO SCH ×2 (08:34→20:23)
[2016-12-28] MEDS: risperiDONE 0.25 MG TABLET. PO SCH ×2 (08:34→20:23)
--- NOTE | 2016-12-28 10:00 | NUR ---
THERAPEUTIC RECREATION GROUP NOTE TITLE :Color Your Flag ACTIVITY : Arts and Crafts GOAL : Increase creativity and fine motor functioning, reduce stress, anxiety. DURATION : Available for 90 minutes RESPONSE : Full participation. Pt. joined the session after working with Physical Therapy. Her paper was taped to the table and she used crayons to color all over the flag. She was quiet and needed some prompting to stay on task.
--- NOTE | 2016-12-28 10:51 | NUR ---
Behavior Intervention Response and Plan: BIRP Note: Behavior: Assumed Care of patient, patient located in Hallway at shift change. Patient exhibited the following behavior Calm, Appropriate, Cooperative. Brief assessment on rounds of vital signs, medication needs, lab studies, and pain. Treatment plan problems . Intervention: Patient assessed and the following interventions initiated safety checks 15 Minute Checks Head to toe Assessment , Medications , Nutrition. Response: After interactions and interventions patient responded in the following manner, Cooperative , Sleeping ,Appropriate. Continue to assess behaviors and condition will continue to monitor throughout the shift as needed. Plan: Continue to monitor Master Treatment Plan for patient's progress toward short term goals of Improved Mood, No harm To self/ others, prison goals to return to previous living setting vs placement. Continue to assess patient for changes in above assessment. Monitor for medication needs, pain, and safety concerns. Hourly rounding performed to ensure safe environment.
--- NOTE | 2016-12-28 13:30 | NUR ---
THERAPEUTIC RECREATION GROUP NOTE TITLE :Musical Flags ACTIVITY : Activities and Games GOAL : Increase alertness/focus, socialization, group cohesion DURATION : 40 Minutes RESPONSE : Moderate participation. Pt. participated the first half before falling asleep. Pt. needed occasional prompting to stay on task. She waited calmly in between her turns.
--- NOTE | 2016-12-28 13:37 | NUR ---
JEFFERY faxed admit referral to [facility] for LTC. Will be out to screen on Wednesday.
[2016-12-28 16:03] VITALS: BP 131/62
[2016-12-28] MEDS: MIRTAZAPINE 7.5 MG TABLET. PO SCH (20:23)
[2016-12-28] MEDS: traZODone 50 MG TABLET. PO SCH (20:23)
--- NOTE | 2016-12-28 22:56 | NUR ---
Behavior Intervention Response and Plan: BIRP Note: Behavior: Assumed Care of patient, patient located in Day Room at shift change. Patient exhibited the following behavior Calm, Withdrawn, Drowsy. Brief assessment on rounds of vital signs, medication needs, lab studies, and pain. Treatment plan problems 1 and 2. Intervention: Patient assessed and the following interventions initiated safety checks 15 Minute Checks Cognitive Assessment , Head to toe Assessment , Medications. Response: After interactions and interventions patient responded in the following manner, Calm , Compliant ,Cooperative. Continue to assess behaviors and condition will continue to monitor throughout the shift as needed. Plan: Continue to monitor Master Treatment Plan for patient's progress toward short term goals of Decreased Agitation, Decreased Anxiety, skilled nursing goals to return to previous living setting vs placement. Continue to assess patient for changes in above assessment. Monitor for medication needs, pain, and safety concerns. Hourly rounding performed to ensure safe environment.
--- NOTE | 2016-12-28 23:36 | PDOC ---
Exam Cheng Demential Exam: Cheng Note: Please also refer to the separate dictated note~for this date of service dictated separately.~Patient seen individually. Discussed the patient with Nursing staff reviewed the chart.~Reviewed interim history and current functioning. Reviewed vital signs,~Labs/ Radiology~and current medications noted below. Continue current treatment with the changes noted in the dictated addendum note Assessment: Vital Signs: Vital Signs Date Time Temp Pulse Resp B/P (MAP) Pulse Ox O2 Delivery O2 Flow Rate FiO2 12/28/16 20:27 67 131/62 12/28/16 16:03 97.8 18 97 Room Air I&O Intake and Output 12/28/16 07:00 Intake Total 560 ml Balance 560 ml Intake Oral 560 ml Current Medications: Meds: Current Medications Acetaminophen (Tylenol) 650 mg PRN Q6HRS PRN PO PAIN / TEMP Last administered on 12/28/16 02:53; Start 12/18/16 at 12:30 Multi-Ingredient Ointment (Analgesic [place]) 1 payton PRN QID PRN TP MUSCLE PAIN; Start 12/18/16 at 12:30 Al Hydroxide/Mg Hydroxide (Mylanta Plus Xs) 15 ml PRN AFTMEALHC PRN PO DYSPEPSIA; Start 12/18/16 at 12:30 Magnesium Hydroxide (Milk Of Magnesia) 2,400 mg PRN QHS PRN PO CONSTIPATION Last administered on 12/20/16 17:34; Start 12/18/16 at 12:30 Hydroxyzine Pamoate (Vistaril) 25 mg BID PO Last administered on 12/28/16 20: 23; Start 12/18/16 at 21:00 Risperidone (RisperDAL) 0.25 mg PRN Q12HR PRN PO ANXIETY / AGITATION Last administered on 12/23/16 01:45; Start 12/18/16 at 13:30 Topiramate (Topamax) 12.5 mg BID PO Last administered on 12/23/16 08:45; Start 12/18/16 at 21:00; Stop 12/23/16 at 17:47; Status DC Divalproex Sodium (Depakote Er) 500 mg DAILY PO ; Start 12/19/16 at 09:00; Stop 12/19/16 at 09:00; Status DC Albuterol Sulfate (Ventolin) 2.5 mg PRN Q4HRS PRN NEB SHORTNESS OF BREATH; Start 12/18/16 at 13:45 Acetaminophen/ Aspirin/Caffeine (Excedrin Migraine) 1 tab PRN Q6HRS PRN PO HEADACHE; Start 12/18/16 at 13:45 Baclofen (Lioresal) 10 mg BID PO Last administered on 12/28/16 20:21; Start at 21:00 Ergocalciferol (Vitamin D2) 50,000 unit QMTH PO ; Start 12/21/16 at 16:00; Stop 12/21/16 at 16:00; Status DC Metoprolol Tartrate (Lopressor) 25 mg BID PO Last administered on 12/28/16 20: 22; Start 12/18/16 at 21:00 Polyethylene Glycol (miraLAX) 17 gm PRN Q12HR PRN PO CONSTIPATION Last administered on 12/20/16 17:34; Start 12/18/16 at 13:45 Senna/Docusate Sodium (Senna Plus) 1 tab Q12HR PO Last administered on 20:23; Start 12/18/16 at 21:00 Tramadol HCl (Ultram) 50 mg PRN Q6HRS PRN PO PAIN Last administered on 20:39; Start 12/18/16 at 13:45 Flecainide Acetate (Tambocor) 50 mg Q12HR PO Last administered on 12/28/16 20: 27; Start 12/18/16 at 21:00 Risperidone (RisperDAL) 0.125 mg BID PO Last administered on 12/28/16 20:23; Start 12/18/16 at 21:00 Divalproex Sodium (Depakote Sprinkles) 250 mg BID PO Last administered on 09:55; Start 12/18/16 at 21:00; Stop 12/21/16 at 12:37; Status DC Ergocalciferol (Vitamin D2) 50,000 unit Q2WKS PO Last administered on 12/21/16 09:57; Start 12/21/16 at 16:00 Escitalopram Oxalate (Lexapro) 5 mg DAILY PO Last administered on 12/22/16 07: 50; Start 12/20/16 at 09:00; Stop 12/22/16 at 16:47; Status DC Divalproex Sodium (Depakote Sprinkles) 375 mg BID PO Last administered on 08:46; Start 12/21/16 at 21:00; Stop 12/23/16 at 16:23; Status DC Escitalopram Oxalate (Lexapro) 10 mg DAILY PO Last administered on 12/28/16 08 :33; Start 12/23/16 at 09:00 Divalproex Sodium (Depakote Sprinkles) 500 mg BID PO Last administered on 20:23; Start 12/23/16 at 21:00 Mirtazapine (Remeron) 7.5 mg QHS PO Last administered on 12/26/16 21:58; Start 12/23/16 at 21:00; Stop 12/27/16 at 18:49; Status DC Mirtazapine (Remeron) 15 mg QHS PO Last administered on 12/28/16 20:23; Start 12/27/16 at 21:00 Trazodone HCl (Desyrel) 50 mg QHS PO Last administered on 12/28/16 20:23; Start 12/27/16 at 21:00 Active Scripts Active Reported Albuterol Sulfate Neb Soln (Albuterol Sulfate) 2.5 Mg/3 Ml Vial.neb 1 Vial NEB PRN Q4HRS PRN Tramadol Hcl (Tramadol HCl) 50 Mg Tablet 50 Mg PO PRN Q6HRS PRN Topiramate 25 Mg Tablet 12.5 Mg PO BID Senokot-S Tablet (Sennosides/Docusate Sodium) 1 Each Tablet 1 Tab PO Q12HR Risperidone 0.5 Mg Tablet 0.25 Mg PO PRN Q12HR PRN Metoprolol Tartrate 25 Mg Tablet 37.5 Tab PO BID Hydroxyzine Pamoate 25 Mg Capsule 1 Cap PO BID Glycolax (Polyethylene Glycol 3350) 119 Gm Powder 17 Gm PO PRN Q12HR PRN Flecainide Acetate 100 Mg Tablet 50 Mg PO Q12HR Excedrin Migraine Caplet (Aspirin/Acetaminophen/Caffeine) 1 Each Tablet 1 Each PO PRN Q6HRS PRN Vitamin D2 (Ergocalciferol (Vitamin D2)) 50,000 Unit Capsule 50,000 Unit PO QMTH Depakote (Divalproex Sodium) 500 Mg Tablet.dr 1 Tab PO DAILY Baclofen 10 Mg Tablet 1 Tab PO BID Diagnosis: Problems: (1) Anxiety disorder (2) Impulse control disorder (3) Major depressive disorder, recurrent episode (4) 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
--- NOTE | 2016-12-29 01:45 | PN ---
DATE: 12/27/2016 PSYCHIATRIC PROGRESS NOTE This is late entry of 12/27/2016, covers elements not covered in my initial note. SUBJECTIVE: The patient slept 3-1/4 hours previous night, remains confused, rambling in her speech, disorganized. REVIEW OF SYSTEMS: Ambulation impaired, in her wheelchair. She made it a point to shake my hand like she does every time. Speech is rambling. No CV, , pulmonary, eye system symptoms on review. Reliability poor. MENTAL STATUS EXAMINATION: Oriented to herself. Insight, judgment, recent and remote memory, attention, concentration, fund of knowledge poor, consistent with her diagnosis mentioned in my initial note. PLAN: Increase Remeron from 7.5 at bedtime to 15 at bedtime, add trazodone 50 at bedtime, may repeat x 1 p.r.n., maintain Risperdal, hydroxyzine, Depakote and Lexapro as before. TONEY AGGARWAL MD DR: CECI/evert JOB#: [id number] / [id number]
[2016-12-29 06:12] VITALS: BP 125/78
--- NOTE | 2016-12-29 09:00 | NUR ---
THERAPEUTIC RECREATION GROUP NOTE TITLE :Beach Ball Bop ACTIVITY : Movement/ Exercise GOAL : Increase morale, attention, endurance, socialization. Decrease stress/anxiety. DURATION : 50 Minutes RESPONSE : Full participation. Pt. sang along with songs and eagerly hit the beach ball when it was her turn. She needed reminders to wait patiently until it came back around to her but she sat quietly. She had trouble tracking the ball at times but stayed engaged the entire time.
[2016-12-29] MEDS: risperiDONE 0.25 MG TABLET. PO SCH ×2 (09:10→19:48)
[2016-12-29] MEDS: ESCITALOPRAM 10 MG TABLET. PO SCH (09:10)
[2016-12-29] MEDS: DIVALPROEX 125 MG CAP.SPRINK PO SCH ×2 (09:10→19:48)
[2016-12-29] MEDS: SENNOSIDES/DOCUSATE 8.6/50MG TABLET. PO SCH ×2 (09:11→19:47)
[2016-12-29] MEDS: hydrOXYzine PAMOATE 25 MG CAPSULE PO SCH ×2 (09:11→19:48)
[2016-12-29] MEDS: BACLOFEN 10 MG TABLET PO SCH ×2 (09:11→19:49)
[2016-12-29] MEDS: METOPROLOL TART IMMED RELEASE 25 MG TABLET PO SCH ×2 (09:11→19:47)
[2016-12-29] MEDS: FLECAINIDE 50 MG TABLET. PO SCH ×2 (09:18→19:47)
--- NOTE | 2016-12-29 11:18 | NUR ---
Behavior Intervention Response and Plan: BIRP Note: Behavior: Assumed Care of patient, patient located in Patient Room at shift change. Patient exhibited the following behavior Disorganized, Restless, Wandering. Brief assessment on rounds of vital signs, medication needs, lab studies, and pain. Treatment plan problems . Intervention: Patient assessed and the following interventions initiated safety checks 15 Minute Checks Medications , Head to toe Assessment , Nutrition. Response: After interactions and interventions patient responded in the following manner, Cooperative , Withdrawn ,Drowsy. Continue to assess behaviors and condition will continue to monitor throughout the shift as needed. Plan: Continue to monitor Master Treatment Plan for patient's progress toward short term goals of Decreased Agitation, Improved Mood, prison goals to return to previous living setting vs placement. Continue to assess patient for changes in above assessment. Monitor for medication needs, pain, and safety concerns. Hourly rounding performed to ensure safe environment.
--- NOTE | 2016-12-29 11:30 | NUR ---
THERAPEUTIC RECREATION GROUP NOTE TITLE :Movement to Music: Flexibility ACTIVITY : Movement/ Exercise GOAL : Increase morale, attention, flexibility. Decrease stress/anxiety. DURATION : 20 Minutes RESPONSE : No participation.
--- NOTE | 2016-12-29 15:38 | NUR ---
Anderson Carias out to screen today. Will notify this SW of determination of acceptance after their team meeting.
[2016-12-29 16:11] VITALS: BP 133/75
--- NOTE | 2016-12-29 16:55 | NUR ---
JEFFERY was called downstairs by registration. JEFFERY went downstairs met with Immanuel, who stated he was Ayah's DPOA and he wanted to see her right then. Immanuel had a strong odor of Alchol on him. JEFFERY stated she could not confirm or deny if Ayah was a pt. Immanuel became upset, JEFFERY replied, Sorry unable to confirm or deny if this person is a pt. Immanuel replied "I'm a damn SW too." Immanuel raised his voice stating he was demanding to see Ayah and he knew she was here because they told him pointing to the front office associate. JEFFERY again replied, Sorry Sir, is there anything else I can help you with? Immanuel replied is Sorry your name, I'm writing down everything including HIPPA your breaking HIPPA by not telling me, I'm the DPOA since 2008. JEFFERY repiled again Sorry, unable to conform or deny if the person is a pt. Registration came out and stated she had called Security. JEFFERY informed Immanuel and person with him that if nothing else they could now leave the hospital. Immanuel stated, no need to call them, we are leaving.
[2016-12-29] MEDS: MIRTAZAPINE 7.5 MG TABLET. PO SCH (19:46)
[2016-12-29] MEDS: traZODone 50 MG TABLET. PO SCH (19:47)
--- NOTE | 2016-12-29 19:56 | PDOC ---
Exam Cheng Demential Exam: Cheng Note: Please also refer to the separate dictated note~for this date of service dictated separately.~Patient seen individually. Discussed the patient with Nursing staff reviewed the chart.~Reviewed interim history and current functioning. Reviewed vital signs,~Labs/ Radiology~and current medications noted below. Continue current treatment with the changes noted in the dictated addendum note Assessment: Vital Signs: Vital Signs Date Time Temp Pulse Resp B/P (MAP) Pulse Ox O2 Delivery O2 Flow Rate FiO2 12/29/16 19:47 66 133/75 12/29/16 16:11 98.0 16 95 12/29/16 06:12 Room Air I&O Intake and Output 12/29/16 07:00 Intake Total 720 ml Balance 720 ml Intake Oral 720 ml Current Medications: Meds: Current Medications Acetaminophen (Tylenol) 650 mg PRN Q6HRS PRN PO PAIN / TEMP Last administered on 12/28/16 02:53; Start 12/18/16 at 12:30 Multi-Ingredient Ointment (Analgesic [place]) 1 payton PRN QID PRN TP MUSCLE PAIN; Start 12/18/16 at 12:30 Al Hydroxide/Mg Hydroxide (Mylanta Plus Xs) 15 ml PRN AFTMEALHC PRN PO DYSPEPSIA; Start 12/18/16 at 12:30 Magnesium Hydroxide (Milk Of Magnesia) 2,400 mg PRN QHS PRN PO CONSTIPATION Last administered on 12/20/16 17:34; Start 12/18/16 at 12:30 Hydroxyzine Pamoate (Vistaril) 25 mg BID PO Last administered on 12/29/16 19: 48; Start 12/18/16 at 21:00 Risperidone (RisperDAL) 0.25 mg PRN Q12HR PRN PO ANXIETY / AGITATION Last administered on 12/23/16 01:45; Start 12/18/16 at 13:30 Topiramate (Topamax) 12.5 mg BID PO Last administered on 12/23/16 08:45; Start 12/18/16 at 21:00; Stop 12/23/16 at 17:47; Status DC Divalproex Sodium (Depakote Er) 500 mg DAILY PO ; Start 12/19/16 at 09:00; Stop 12/19/16 at 09:00; Status DC Albuterol Sulfate (Ventolin) 2.5 mg PRN Q4HRS PRN NEB SHORTNESS OF BREATH; Start 12/18/16 at 13:45 Acetaminophen/ Aspirin/Caffeine (Excedrin Migraine) 1 tab PRN Q6HRS PRN PO HEADACHE; Start 12/18/16 at 13:45 Baclofen (Lioresal) 10 mg BID PO Last administered on 12/29/16 19:49; Start at 21:00 Ergocalciferol (Vitamin D2) 50,000 unit QMTH PO ; Start 12/21/16 at 16:00; Stop 12/21/16 at 16:00; Status DC Metoprolol Tartrate (Lopressor) 25 mg BID PO Last administered on 12/29/16 19: 47; Start 12/18/16 at 21:00 Polyethylene Glycol (miraLAX) 17 gm PRN Q12HR PRN PO CONSTIPATION Last administered on 12/20/16 17:34; Start 12/18/16 at 13:45 Senna/Docusate Sodium (Senna Plus) 1 tab Q12HR PO Last administered on 19:47; Start 12/18/16 at 21:00 Tramadol HCl (Ultram) 50 mg PRN Q6HRS PRN PO PAIN Last administered on 20:39; Start 12/18/16 at 13:45 Flecainide Acetate (Tambocor) 50 mg Q12HR PO Last administered on 12/29/16 19: 47; Start 12/18/16 at 21:00 Risperidone (RisperDAL) 0.125 mg BID PO Last administered on 12/29/16 19:48; Start 12/18/16 at 21:00 Divalproex Sodium (Depakote Sprinkles) 250 mg BID PO Last administered on 09:55; Start 12/18/16 at 21:00; Stop 12/21/16 at 12:37; Status DC Ergocalciferol (Vitamin D2) 50,000 unit Q2WKS PO Last administered on 12/21/16 09:57; Start 12/21/16 at 16:00 Escitalopram Oxalate (Lexapro) 5 mg DAILY PO Last administered on 12/22/16 07: 50; Start 12/20/16 at 09:00; Stop 12/22/16 at 16:47; Status DC Divalproex Sodium (Depakote Sprinkles) 375 mg BID PO Last administered on 08:46; Start 12/21/16 at 21:00; Stop 12/23/16 at 16:23; Status DC Escitalopram Oxalate (Lexapro) 10 mg DAILY PO Last administered on 12/29/16 09 :10; Start 12/23/16 at 09:00 Divalproex Sodium (Depakote Sprinkles) 500 mg BID PO Last administered on 19:48; Start 12/23/16 at 21:00 Mirtazapine (Remeron) 7.5 mg QHS PO Last administered on 12/26/16 21:58; Start 12/23/16 at 21:00; Stop 12/27/16 at 18:49; Status DC Mirtazapine (Remeron) 15 mg QHS PO Last administered on 12/29/16 19:46; Start 12/27/16 at 21:00 Trazodone HCl (Desyrel) 50 mg QHS PO Last administered on 12/29/16 19:47; Start 12/27/16 at 21:00 Active Scripts Active Reported Albuterol Sulfate Neb Soln (Albuterol Sulfate) 2.5 Mg/3 Ml Vial.neb 1 Vial NEB PRN Q4HRS PRN Tramadol Hcl (Tramadol HCl) 50 Mg Tablet 50 Mg PO PRN Q6HRS PRN Topiramate 25 Mg Tablet 12.5 Mg PO BID Senokot-S Tablet (Sennosides/Docusate Sodium) 1 Each Tablet 1 Tab PO Q12HR Risperidone 0.5 Mg Tablet 0.25 Mg PO PRN Q12HR PRN Metoprolol Tartrate 25 Mg Tablet 37.5 Tab PO BID Hydroxyzine Pamoate 25 Mg Capsule 1 Cap PO BID Glycolax (Polyethylene Glycol 3350) 119 Gm Powder 17 Gm PO PRN Q12HR PRN Flecainide Acetate 100 Mg Tablet 50 Mg PO Q12HR Excedrin Migraine Caplet (Aspirin/Acetaminophen/Caffeine) 1 Each Tablet 1 Each PO PRN Q6HRS PRN Vitamin D2 (Ergocalciferol (Vitamin D2)) 50,000 Unit Capsule 50,000 Unit PO QMTH Depakote (Divalproex Sodium) 500 Mg Tablet.dr 1 Tab PO DAILY Baclofen 10 Mg Tablet 1 Tab PO BID Diagnosis: Problems: (1) Anxiety disorder (2) Impulse control disorder (3) Major depressive disorder, recurrent episode (4) 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
--- NOTE | 2016-12-29 22:55 | NUR ---
Behavior Intervention Response and Plan: BIRP Note: Behavior: Assumed Care of patient, patient located in Day Room at shift change. Patient exhibited the following behavior Restless, Disorganized, Cooperative. Brief assessment on rounds of vital signs, medication needs, lab studies, and pain. Treatment plan problems 1 and 2. Intervention: Patient assessed and the following interventions initiated safety checks 15 Minute Checks Cognitive Assessment , Head to toe Assessment , Medications. Response: After interactions and interventions patient responded in the following manner, Calm , Compliant ,Cooperative. Continue to assess behaviors and condition will continue to monitor throughout the shift as needed. 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 Continue to assess patient for changes in above assessment. Monitor for medication needs, pain, and safety concerns. Hourly rounding performed to ensure safe environment.
--- NOTE | 2016-12-30 00:21 | PN ---
DATE: 12/28/2016 This is a late entry of 12/28/2016, covers elements not covered in my initial note. SUBJECTIVE: The patient remains confused, withdrawn, rambling in her speech, not aggressive. REVIEW OF SYSTEMS: No CV, , pulmonary, eye, ENT system symptoms on review. She does have movement disorder consistent with [place]'s. Ambulation impaired, in her wheelchair. Reliability poor. MENTAL STATUS EXAM: Oriented to herself. Insight, judgment, recent memory is impaired. Language function intact. Attention span short. Mood and affect still labile, withdrawn, but improved. LABORATORY DATA: Reviewed. 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 Rest unchanged. PLAN: Continue psychotropics mentioned in my initial note, adjust as indicated. Valproic acid level 74. MAN Tonny AGGARWAL MD DR: CECI/evert JOB#: [id number] / [id number]
[2016-12-30 05:31] VITALS: BP 156/82
[2016-12-30] MEDS: METOPROLOL TART IMMED RELEASE 25 MG TABLET PO SCH ×2 (09:28→19:48)
[2016-12-30] MEDS: hydrOXYzine PAMOATE 25 MG CAPSULE PO SCH ×2 (09:28→19:48)
[2016-12-30] MEDS: SENNOSIDES/DOCUSATE 8.6/50MG TABLET. PO SCH ×2 (09:29→19:47)
[2016-12-30] MEDS: ESCITALOPRAM 10 MG TABLET. PO SCH (09:29)
[2016-12-30] MEDS: BACLOFEN 10 MG TABLET PO SCH ×2 (09:29→19:47)
[2016-12-30] MEDS: DIVALPROEX 125 MG CAP.SPRINK PO SCH ×2 (09:29→19:49)
[2016-12-30] MEDS: risperiDONE 0.25 MG TABLET. PO SCH ×2 (09:29→19:48)
[2016-12-30] MEDS: FLECAINIDE 50 MG TABLET. PO SCH ×2 (09:31→19:50)
--- NOTE | 2016-12-30 11:15 | NUR ---
THERAPEUTIC RECREATION GROUP NOTE TITLE :Match the Flag ACTIVITY : Cognitive Stimulation GOAL : Maintain or improve cognitive functioning and memory. DURATION : 45 Minutes RESPONSE : Full participation. Pt. sang along with songs and was able to match the flag with assistance. She needed clues and guidance to identify the country it belonged to. She had messy hair and her arms were stiff and jerky.
--- NOTE | 2016-12-30 13:29 | NUR ---
Behavior Intervention Response and Plan: BIRP Note: Behavior: Assumed Care of patient, patient located in Patient Room at shift change. Patient exhibited the following behavior Calm, Disorganized, Compliant. Brief assessment on rounds of vital signs, medication needs, lab studies, and pain. Treatment plan problems . Intervention: Patient assessed and the following interventions initiated safety checks 15 Minute Checks Head to toe Assessment , Medications , Oral Hydration. Response: After interactions and interventions patient responded in the following manner, Compliant , Cooperative ,Disorganized. Continue to assess behaviors and condition will continue to monitor throughout the shift as needed. 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 Continue to assess patient for changes in above assessment. Monitor for medication needs, pain, and safety concerns. Hourly rounding performed to ensure safe environment.
[2016-12-30 16:14] VITALS: BP 148/85
[2016-12-30] MEDS: MIRTAZAPINE 7.5 MG TABLET. PO SCH (19:47)
[2016-12-30] MEDS: traZODone 50 MG TABLET. PO SCH (19:48)
--- NOTE | 2016-12-30 20:30 | PDOC ---
Exam Cheng Demential Exam: Cheng Note: Please also refer to the separate dictated note~for this date of service dictated separately.~Patient seen individually. Discussed the patient with Nursing staff reviewed the chart.~Reviewed interim history and current functioning. Reviewed vital signs,~Labs/ Radiology~and current medications noted below. Continue current treatment with the changes noted in the dictated addendum note Assessment: Vital Signs: Vital Signs Date Time Temp Pulse Resp B/P (MAP) Pulse Ox O2 Delivery O2 Flow Rate FiO2 12/30/16 19:50 62 148/85 12/30/16 16:14 98.1 20 95 12/29/16 06:12 Room Air I&O Intake and Output 12/30/16 07:00 Intake Total 1200 ml Balance 1200 ml Intake Oral 1200 ml Current Medications: Meds: Current Medications Acetaminophen (Tylenol) 650 mg PRN Q6HRS PRN PO PAIN / TEMP Last administered on 12/28/16 02:53; Start 12/18/16 at 12:30 Multi-Ingredient Ointment (Analgesic [place]) 1 payton PRN QID PRN TP MUSCLE PAIN; Start 12/18/16 at 12:30 Al Hydroxide/Mg Hydroxide (Mylanta Plus Xs) 15 ml PRN AFTMEALHC PRN PO DYSPEPSIA; Start 12/18/16 at 12:30 Magnesium Hydroxide (Milk Of Magnesia) 2,400 mg PRN QHS PRN PO CONSTIPATION Last administered on 12/20/16 17:34; Start 12/18/16 at 12:30 Hydroxyzine Pamoate (Vistaril) 25 mg BID PO Last administered on 12/30/16 19: 48; Start 12/18/16 at 21:00 Risperidone (RisperDAL) 0.25 mg PRN Q12HR PRN PO ANXIETY / AGITATION Last administered on 12/23/16 01:45; Start 12/18/16 at 13:30 Topiramate (Topamax) 12.5 mg BID PO Last administered on 12/23/16 08:45; Start 12/18/16 at 21:00; Stop 12/23/16 at 17:47; Status DC Divalproex Sodium (Depakote Er) 500 mg DAILY PO ; Start 12/19/16 at 09:00; Stop 12/19/16 at 09:00; Status DC Albuterol Sulfate (Ventolin) 2.5 mg PRN Q4HRS PRN NEB SHORTNESS OF BREATH; Start 12/18/16 at 13:45 Acetaminophen/ Aspirin/Caffeine (Excedrin Migraine) 1 tab PRN Q6HRS PRN PO HEADACHE; Start 12/18/16 at 13:45 Baclofen (Lioresal) 10 mg BID PO Last administered on 12/30/16 19:47; Start at 21:00 Ergocalciferol (Vitamin D2) 50,000 unit QMTH PO ; Start 12/21/16 at 16:00; Stop 12/21/16 at 16:00; Status DC Metoprolol Tartrate (Lopressor) 25 mg BID PO Last administered on 12/30/16 19: 48; Start 12/18/16 at 21:00 Polyethylene Glycol (miraLAX) 17 gm PRN Q12HR PRN PO CONSTIPATION Last administered on 12/20/16 17:34; Start 12/18/16 at 13:45 Senna/Docusate Sodium (Senna Plus) 1 tab Q12HR PO Last administered on 19:47; Start 12/18/16 at 21:00 Tramadol HCl (Ultram) 50 mg PRN Q6HRS PRN PO PAIN Last administered on 20:39; Start 12/18/16 at 13:45 Flecainide Acetate (Tambocor) 50 mg Q12HR PO Last administered on 12/30/16 19: 50; Start 12/18/16 at 21:00 Risperidone (RisperDAL) 0.125 mg BID PO Last administered on 12/30/16 19:48; Start 12/18/16 at 21:00 Divalproex Sodium (Depakote Sprinkles) 250 mg BID PO Last administered on 09:55; Start 12/18/16 at 21:00; Stop 12/21/16 at 12:37; Status DC Ergocalciferol (Vitamin D2) 50,000 unit Q2WKS PO Last administered on 12/21/16 09:57; Start 12/21/16 at 16:00 Escitalopram Oxalate (Lexapro) 5 mg DAILY PO Last administered on 12/22/16 07: 50; Start 12/20/16 at 09:00; Stop 12/22/16 at 16:47; Status DC Divalproex Sodium (Depakote Sprinkles) 375 mg BID PO Last administered on 08:46; Start 12/21/16 at 21:00; Stop 12/23/16 at 16:23; Status DC Escitalopram Oxalate (Lexapro) 10 mg DAILY PO Last administered on 12/30/16 09 :29; Start 12/23/16 at 09:00 Divalproex Sodium (Depakote Sprinkles) 500 mg BID PO Last administered on 19:49; Start 12/23/16 at 21:00 Mirtazapine (Remeron) 7.5 mg QHS PO Last administered on 12/26/16 21:58; Start 12/23/16 at 21:00; Stop 12/27/16 at 18:49; Status DC Mirtazapine (Remeron) 15 mg QHS PO Last administered on 12/30/16 19:47; Start 12/27/16 at 21:00 Trazodone HCl (Desyrel) 50 mg QHS PO Last administered on 12/30/16 19:48; Start 12/27/16 at 21:00 Active Scripts Active Reported Albuterol Sulfate Neb Soln (Albuterol Sulfate) 2.5 Mg/3 Ml Vial.neb 1 Vial NEB PRN Q4HRS PRN Tramadol Hcl (Tramadol HCl) 50 Mg Tablet 50 Mg PO PRN Q6HRS PRN Topiramate 25 Mg Tablet 12.5 Mg PO BID Senokot-S Tablet (Sennosides/Docusate Sodium) 1 Each Tablet 1 Tab PO Q12HR Risperidone 0.5 Mg Tablet 0.25 Mg PO PRN Q12HR PRN Metoprolol Tartrate 25 Mg Tablet 37.5 Tab PO BID Hydroxyzine Pamoate 25 Mg Capsule 1 Cap PO BID Glycolax (Polyethylene Glycol 3350) 119 Gm Powder 17 Gm PO PRN Q12HR PRN Flecainide Acetate 100 Mg Tablet 50 Mg PO Q12HR Excedrin Migraine Caplet (Aspirin/Acetaminophen/Caffeine) 1 Each Tablet 1 Each PO PRN Q6HRS PRN Vitamin D2 (Ergocalciferol (Vitamin D2)) 50,000 Unit Capsule 50,000 Unit PO QMTH Depakote (Divalproex Sodium) 500 Mg Tablet.dr 1 Tab PO DAILY Baclofen 10 Mg Tablet 1 Tab PO BID Diagnosis: Problems: (1) Anxiety disorder (2) Impulse control disorder (3) Major depressive disorder, recurrent episode (4) 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
--- NOTE | 2016-12-30 21:12 | PN ---
DATE: 12/29/2016 PSYCHIATRIC PROGRESS NOTE This is a late entry for 12/29/2016 and covers elements not covered in my initial note. SUBJECTIVE: Overall, the patient remains confused, is calm, not combative, still anxious with garbled speech, did take a shower and reportedly talked about writing a love letter to Immanuel. Apparently, Immanuel is her significant other and he arrived on the unit looking for her. Nursing staff indicated he was intoxicated, but he has no permission to visit her from the guardian and did not visit her. REVIEW OF SYSTEMS: In a wheelchair, ambulation impaired. No CV, , pulmonary, eye system symptoms on review. Reliability poor. MENTAL STATUS EXAMINATION: Oriented to herself. Insight, judgment, recent memory is impaired. Mood and affect remain somewhat anxious, labile. LABORATORY DATA: Reviewed. 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 PLAN: Continue current psychotropics mentioned in my initial note, valproic acid level therapeutic at 74. MAN Tonny AGGARWAL MD DR: CECI/evert JOB#: [id number] / [id number]
--- NOTE | 2016-12-30 22:36 | NUR ---
Behavior Intervention Response and Plan: BIRP Note: Behavior: Assumed Care of patient, patient located in Patient Room at shift change. Patient exhibited the following behavior Calm, Compliant, Cooperative. Brief assessment on rounds of vital signs, medication needs, lab studies, and pain. Treatment plan problems Dementia with Bd and Fall Risk. Intervention: Patient assessed and the following interventions initiated safety checks 15 Minute Checks Cognitive Assessment , Head to toe Assessment , Medications. Response: After interactions and interventions patient responded in the following manner, Calm , Compliant ,Cooperative. Continue to assess behaviors and condition will continue to monitor throughout the shift as needed. Plan: Continue to monitor Master Treatment Plan for patient's progress toward short term goals of Decreased Agitation, Medication Compliance, terminal clerk goals to return to previous living setting vs placement. Continue to assess patient for changes in above assessment. Monitor for medication needs, pain, and safety concerns. Hourly rounding performed to ensure safe environment.
--- NOTE | 2016-12-31 01:33 | PN ---
DATE: 12/30/2016 PSYCHIATRIC PROGRESS NOTE SUBJECTIVE: This note covers elements not covered in my initial note. The patient awoke 1:15 a.m. crying then again at 3:15 labile in her mood and then later went to the bathroom and was calmer, cooperative. Compliant with medications. No crying during the day today, which in itself is an improvement, appetite is better. REVIEW OF SYSTEMS: Ambulation impaired. She has tremors consistent with [place]'s. No CV, , pulmonary, eye, ENT symptoms on review. MENTAL STATUS EXAM: Oriented to herself. Insight, judgment, recent and remote memory, attention, concentration, fund of knowledge poor, consistent with her diagnosis mentioned in my initial note. PLAN: Continue current psychotropics mentioned in my initial note. Adjust further as clinically indicated. MAN Tonny AGGARWAL MD DR: CECI/evert JOB#: [id number] / [id number]
[2016-12-31 06:03] VITALS: BP 109/56
[2016-12-31] MEDS: BACLOFEN 10 MG TABLET PO SCH ×2 (08:53→19:03)
[2016-12-31] MEDS: risperiDONE 0.25 MG TABLET. PO SCH ×2 (08:53→19:03)
[2016-12-31] MEDS: FLECAINIDE 50 MG TABLET. PO SCH ×2 (08:53→19:05)
[2016-12-31] MEDS: ESCITALOPRAM 10 MG TABLET. PO SCH (08:53)
[2016-12-31] MEDS: SENNOSIDES/DOCUSATE 8.6/50MG TABLET. PO SCH ×2 (08:53→19:03)
[2016-12-31] MEDS: METOPROLOL TART IMMED RELEASE 25 MG TABLET PO SCH ×2 (08:54→19:03)
[2016-12-31] MEDS: DIVALPROEX 125 MG CAP.SPRINK PO SCH ×2 (08:54→19:04)
[2016-12-31] MEDS: hydrOXYzine PAMOATE 25 MG CAPSULE PO SCH ×2 (08:54→19:03)
--- NOTE | 2016-12-31 11:00 | NUR ---
THERAPEUTIC RECREATION GROUP NOTE TITLE :Instrument Play Along ACTIVITY : Music GOAL : Increase socialization and self expression, elevate mood, stimulate memory DURATION : 60 minutes RESPONSE : Full participation. Pt. was alert and sang along with the songs. She used bells to play with the beat. She was calm and smiled once.
--- NOTE | 2016-12-31 12:54 | NUR ---
Behavior Intervention Response and Plan: BIRP Note: Behavior: Assumed Care of patient, patient located in Patient Room at shift change. Patient exhibited the following behavior Disorganized, Restless, Irritable. Brief assessment on rounds of vital signs, medication needs, lab studies, and pain. Treatment plan problems . Intervention: Patient assessed and the following interventions initiated safety checks 15 Minute Checks Head to toe Assessment , Medications , Nutrition. Response: After interactions and interventions patient responded in the following manner, Wandering , Exit Seeking ,Compliant. Continue to assess behaviors and condition will continue to monitor throughout the shift as needed. Plan: Continue to monitor Master Treatment Plan for patient's progress toward short term goals of Decreased Agitation, No harm To self/ others, termite treater helper goals to return to previous living setting vs placement. Continue to assess patient for changes in above assessment. Monitor for medication needs, pain, and safety concerns. Hourly rounding performed to ensure safe environment.
--- NOTE | 2016-12-31 14:15 | NUR ---
THERAPEUTIC RECREATION GROUP NOTE TITLE :Movie ACTIVITY : Activities and Games GOAL : Increase alertness/focus, decrease stress DURATION : 105 Minutes RESPONSE : Minimal participation. Pt. watched some of the movie and others as she sat quietly.
--- NOTE | 2016-12-31 15:37 | NUR ---
SW GROUP NOTE co-facilitate Zeke Hooker LMSW TITLE: Outside! ACTIVITY: Pt. sat outside, enjoying fresh air and sunshine. PT's reminisced. [place]ARGET BEHAVIOR: Reminisce, social skills, validation, sunlight therapy DURATION: 10:30-11:15 RESPONSE: Participation minimal. Answered SW's questions.
[2016-12-31 16:06] VITALS: BP 136/77
[2016-12-31] MEDS: traZODone 50 MG TABLET. PO SCH (19:03)
[2016-12-31] MEDS: MIRTAZAPINE 7.5 MG TABLET. PO SCH (19:04)
[2016-12-31] MEDS: MAGNESIUM HYDROXIDE 2,400 MG/30 ML ORAL.SUSP. PO PRN (19:05)
--- NOTE | 2016-12-31 20:12 | PDOC ---
Exam Cheng Demential Exam: Cheng Note: Please also refer to the separate dictated note~for this date of service dictated separately.~Patient seen individually. Discussed the patient with Nursing staff reviewed the chart.~Reviewed interim history and current functioning. Reviewed vital signs,~Labs/ Radiology~and current medications noted below. Continue current treatment with the changes noted in the dictated addendum note Assessment: Vital Signs: Vital Signs Date Time Temp Pulse Resp B/P (MAP) Pulse Ox O2 Delivery O2 Flow Rate FiO2 12/31/16 19:05 66 136/77 12/31/16 16:06 98.3 18 96 Room Air I&O Intake and Output 12/31/16 07:00 Intake Total 960 ml Balance 960 ml Intake Oral 960 ml # Bowel Movements 1 Current Medications: Meds: Current Medications Acetaminophen (Tylenol) 650 mg PRN Q6HRS PRN PO PAIN / TEMP Last administered on 12/28/16 02:53; Start 12/18/16 at 12:30 Multi-Ingredient Ointment (Analgesic [place]) 1 payton PRN QID PRN TP MUSCLE PAIN; Start 12/18/16 at 12:30 Al Hydroxide/Mg Hydroxide (Mylanta Plus Xs) 15 ml PRN AFTMEALHC PRN PO DYSPEPSIA; Start 12/18/16 at 12:30 Magnesium Hydroxide (Milk Of Magnesia) 2,400 mg PRN QHS PRN PO CONSTIPATION Last administered on 12/31/16 19:05; Start 12/18/16 at 12:30 Hydroxyzine Pamoate (Vistaril) 25 mg BID PO Last administered on 12/31/16 19: 03; Start 12/18/16 at 21:00 Risperidone (RisperDAL) 0.25 mg PRN Q12HR PRN PO ANXIETY / AGITATION Last administered on 12/23/16 01:45; Start 12/18/16 at 13:30 Topiramate (Topamax) 12.5 mg BID PO Last administered on 12/23/16 08:45; Start 12/18/16 at 21:00; Stop 12/23/16 at 17:47; Status DC Divalproex Sodium (Depakote Er) 500 mg DAILY PO ; Start 12/19/16 at 09:00; Stop 12/19/16 at 09:00; Status DC Albuterol Sulfate (Ventolin) 2.5 mg PRN Q4HRS PRN NEB SHORTNESS OF BREATH; Start 12/18/16 at 13:45 Acetaminophen/ Aspirin/Caffeine (Excedrin Migraine) 1 tab PRN Q6HRS PRN PO HEADACHE; Start 12/18/16 at 13:45 Baclofen (Lioresal) 10 mg BID PO Last administered on 12/31/16 19:03; Start at 21:00 Ergocalciferol (Vitamin D2) 50,000 unit QMTH PO ; Start 12/21/16 at 16:00; Stop 12/21/16 at 16:00; Status DC Metoprolol Tartrate (Lopressor) 25 mg BID PO Last administered on 12/31/16 19: 03; Start 12/18/16 at 21:00 Polyethylene Glycol (miraLAX) 17 gm PRN Q12HR PRN PO CONSTIPATION Last administered on 12/20/16 17:34; Start 12/18/16 at 13:45 Senna/Docusate Sodium (Senna Plus) 1 tab Q12HR PO Last administered on 19:03; Start 12/18/16 at 21:00 Tramadol HCl (Ultram) 50 mg PRN Q6HRS PRN PO PAIN Last administered on 20:39; Start 12/18/16 at 13:45 Flecainide Acetate (Tambocor) 50 mg Q12HR PO Last administered on 12/31/16 19: 05; Start 12/18/16 at 21:00 Risperidone (RisperDAL) 0.125 mg BID PO Last administered on 12/31/16 19:03; Start 12/18/16 at 21:00 Divalproex Sodium (Depakote Sprinkles) 250 mg BID PO Last administered on 09:55; Start 12/18/16 at 21:00; Stop 12/21/16 at 12:37; Status DC Ergocalciferol (Vitamin D2) 50,000 unit Q2WKS PO Last administered on 12/21/16 09:57; Start 12/21/16 at 16:00 Escitalopram Oxalate (Lexapro) 5 mg DAILY PO Last administered on 12/22/16 07: 50; Start 12/20/16 at 09:00; Stop 12/22/16 at 16:47; Status DC Divalproex Sodium (Depakote Sprinkles) 375 mg BID PO Last administered on 08:46; Start 12/21/16 at 21:00; Stop 12/23/16 at 16:23; Status DC Escitalopram Oxalate (Lexapro) 10 mg DAILY PO Last administered on 12/31/16 08 :53; Start 12/23/16 at 09:00 Divalproex Sodium (Depakote Sprinkles) 500 mg BID PO Last administered on 19:04; Start 12/23/16 at 21:00 Mirtazapine (Remeron) 7.5 mg QHS PO Last administered on 12/26/16 21:58; Start 12/23/16 at 21:00; Stop 12/27/16 at 18:49; Status DC Mirtazapine (Remeron) 15 mg QHS PO Last administered on 12/31/16 19:04; Start 12/27/16 at 21:00 Trazodone HCl (Desyrel) 50 mg QHS PO Last administered on 12/31/16 19:03; Start 12/27/16 at 21:00 Active Scripts Active Reported Albuterol Sulfate Neb Soln (Albuterol Sulfate) 2.5 Mg/3 Ml Vial.neb 1 Vial NEB PRN Q4HRS PRN Tramadol Hcl (Tramadol HCl) 50 Mg Tablet 50 Mg PO PRN Q6HRS PRN Topiramate 25 Mg Tablet 12.5 Mg PO BID Senokot-S Tablet (Sennosides/Docusate Sodium) 1 Each Tablet 1 Tab PO Q12HR Risperidone 0.5 Mg Tablet 0.25 Mg PO PRN Q12HR PRN Metoprolol Tartrate 25 Mg Tablet 37.5 Tab PO BID Hydroxyzine Pamoate 25 Mg Capsule 1 Cap PO BID Glycolax (Polyethylene Glycol 3350) 119 Gm Powder 17 Gm PO PRN Q12HR PRN Flecainide Acetate 100 Mg Tablet 50 Mg PO Q12HR Excedrin Migraine Caplet (Aspirin/Acetaminophen/Caffeine) 1 Each Tablet 1 Each PO PRN Q6HRS PRN Vitamin D2 (Ergocalciferol (Vitamin D2)) 50,000 Unit Capsule 50,000 Unit PO QMTH Depakote (Divalproex Sodium) 500 Mg Tablet.dr 1 Tab PO DAILY Baclofen 10 Mg Tablet 1 Tab PO BID Diagnosis: Problems: (1) Anxiety disorder (2) Impulse control disorder (3) Major depressive disorder, recurrent episode (4) 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
--- NOTE | 2017-01-01 05:50 | NUR ---
Behavior Intervention Response and Plan: BIRP Note: Behavior: Assumed Care of patient, patient located in Patient Room at shift change. Patient exhibited the following behavior Calm, Compliant, Cooperative. Brief assessment on rounds of vital signs, medication needs, lab studies, and pain. Treatment plan problems Dementia with Bd and Fall Risk. Intervention: Patient assessed and the following interventions initiated safety checks 15 Minute Checks Cognitive Assessment , Head to toe Assessment , Medications. Response: After interactions and interventions patient responded in the following manner, Calm , Compliant ,Cooperative. Continue to assess behaviors and condition will continue to monitor throughout the shift as needed. Plan: Continue to monitor Master Treatment Plan for patient's progress toward short term goals of Decreased Agitation, Medication Compliance, terminal block assembler goals to return to previous living setting vs placement. Continue to assess patient for changes in above assessment. Monitor for medication needs, pain, and safety concerns. Hourly rounding performed to ensure safe environment.
[2017-01-01 06:30] VITALS: BP 141/78
[2017-01-01] MEDS: risperiDONE 0.25 MG TABLET. PO SCH ×2 (08:06→19:46)
[2017-01-01] MEDS: SENNOSIDES/DOCUSATE 8.6/50MG TABLET. PO SCH ×2 (08:06→19:45)
[2017-01-01] MEDS: BACLOFEN 10 MG TABLET PO SCH ×2 (08:06→19:46)
[2017-01-01] MEDS: METOPROLOL TART IMMED RELEASE 25 MG TABLET PO SCH ×2 (08:06→19:46)
[2017-01-01] MEDS: hydrOXYzine PAMOATE 25 MG CAPSULE PO SCH ×2 (08:06→19:46)
--- NOTE | 2017-01-01 08:06 | PN ---
DATE: 12/31/2016 PSYCHIATRIC PROGRESS NOTE This is a late entry of 12/31/2016 covers elements not covered in my initial note. SUBJECTIVE: The patient staffed at a treatment team meeting with the entire team morning of 12/31/2016 seen individually evening of 12/31/2016 sleeping about 5 hours. Appetite 90% compliant with meds and assessment does have the Wheeler's movements that persist and confusion consequent to her diagnosis. REVIEW OF SYSTEMS: Impaired ambulation in her wheelchair with normal movements as noted. No CV, , pulmonary, eye system symptoms on review. MENTAL STATUS EXAM: Oriented to herself. Insight, judgment, recent, remote memory, attention, concentration, fund of knowledge poor, consistent with her diagnosis mentioned in my initial note. PLAN: Continue Depakote, hydroxyzine, Risperdal, Lexapro, Remeron, trazodone as before. Adjust further as clinically indicated. Valproic acid level is 74 therapeutic. TONEY AGGARWAL MD DR: CECI/evert JOB#: [id number] / [id number]
[2017-01-01] MEDS: ESCITALOPRAM 10 MG TABLET. PO SCH (08:07)
[2017-01-01] MEDS: DIVALPROEX 125 MG CAP.SPRINK PO SCH ×2 (08:07→19:46)
[2017-01-01] MEDS: FLECAINIDE 50 MG TABLET. PO SCH ×2 (08:08→19:47)
--- NOTE | 2017-01-01 11:16 | NUR ---
Behavior Intervention Response and Plan: BIRP Note: Behavior: Assumed Care of patient, patient located in Dining Room at shift change. Patient exhibited the following behavior Disorganized, Restless, Compliant. Brief assessment on rounds of vital signs, medication needs, lab studies, and pain. Treatment plan problems . Intervention: Patient assessed and the following interventions initiated safety checks 15 Minute Checks Cognitive Assessment , Head to toe Assessment , Medications. Response: After interactions and interventions patient responded in the following manner, Compliant , Disorganized ,Withdrawn. Continue to assess behaviors and condition will continue to monitor throughout the shift as needed. Plan: Continue to monitor Master Treatment Plan for patient's progress toward short term goals of Decreased Agitation, Decreased Aggression, skilled nursing goals to return to previous living setting vs placement. Continue to assess patient for changes in above assessment. Monitor for medication needs, pain, and safety concerns. Hourly rounding performed to ensure safe environment.
--- NOTE | 2017-01-01 11:30 | NUR ---
Pt. played a card game focused on reminiscing with QUILL BUNCHER AND SORTER and two other patients. Pt. participated fully with prompting and assistance reading the cards and reminding her to rules. She was calm and pleasant.
--- NOTE | 2017-01-01 13:15 | NUR ---
THERAPEUTIC RECREATION GROUP NOTE TITLE :Sing along/ Karaoke ACTIVITY : Music GOAL : Increase socialization, elevate mood, stimulate memory DURATION : 120 Minutes RESPONSE : Minimal participation. Pt. joined the group a little late and fell asleep soon after. She sang a line of one song and identified a couple other songs.
--- NOTE | 2017-01-01 13:52 | NUR ---
[facility] due to diagnosis and current legal situation involving Significant Other's DPOA being revoked. SW will continue to look for new placement.
--- NOTE | 2017-01-01 14:18 | NUR ---
Group Note [facility] Group Type Outside Activity Start Time: 09:30 End Time: 10:45 Problem: Psychotic Symptoms Purpose: Increase Stimulation, Increase socialization Level of Participation: High Behaviors or Symptoms Observed: Pt sat outside and talked with staff as much as she was able. Interventions: Reminiscence Response: Pt's played ball and answered questions while enjoying fresh air and [place]! Plan: Group Participation Additional Comments:
--- NOTE | 2017-01-01 16:09 | NUR ---
pt up in wc for meals. calm and cooperative. compliant with meds.
[2017-01-01 16:34] VITALS: BP 134/81
[2017-01-01] MEDS: traZODone 50 MG TABLET. PO SCH (19:45)
[2017-01-01] MEDS: MIRTAZAPINE 7.5 MG TABLET. PO SCH (19:46)
--- NOTE | 2017-01-01 21:01 | PDOC ---
Exam Cheng Demential Exam: Cheng Note: Please also refer to the separate dictated note~for this date of service dictated separately.~Patient seen individually. Discussed the patient with Nursing staff reviewed the chart.~Reviewed interim history and current functioning. Reviewed vital signs,~Labs/ Radiology~and current medications noted below. Continue current treatment with the changes noted in the dictated addendum note Assessment: Vital Signs: Vital Signs Date Time Temp Pulse Resp B/P (MAP) Pulse Ox O2 Delivery O2 Flow Rate FiO2 01/01/17 19:47 64 134/81 01/01/17 16:34 98.8 16 96 12/31/16 16:06 Room Air I&O Intake and Output 01/01/17 06:59 Intake Total 1080 ml Balance 1080 ml Intake Oral 1080 ml Current Medications: Meds: Current Medications Acetaminophen (Tylenol) 650 mg PRN Q6HRS PRN PO PAIN / TEMP Last administered on 12/28/16 02:53; Start 12/18/16 at 12:30 Multi-Ingredient Ointment (Analgesic [place]) 1 payton PRN QID PRN TP MUSCLE PAIN; Start 12/18/16 at 12:30 Al Hydroxide/Mg Hydroxide (Mylanta Plus Xs) 15 ml PRN AFTMEALHC PRN PO DYSPEPSIA; Start 12/18/16 at 12:30 Magnesium Hydroxide (Milk Of Magnesia) 2,400 mg PRN QHS PRN PO CONSTIPATION Last administered on 12/31/16 19:05; Start 12/18/16 at 12:30 Hydroxyzine Pamoate (Vistaril) 25 mg BID PO Last administered on 01/01/17 19: 46; Start 12/18/16 at 21:00 Risperidone (RisperDAL) 0.25 mg PRN Q12HR PRN PO ANXIETY / AGITATION Last administered on 12/23/16 01:45; Start 12/18/16 at 13:30 Topiramate (Topamax) 12.5 mg BID PO Last administered on 12/23/16 08:45; Start 12/18/16 at 21:00; Stop 12/23/16 at 17:47; Status DC Divalproex Sodium (Depakote Er) 500 mg DAILY PO ; Start 12/19/16 at 09:00; Stop 12/19/16 at 09:00; Status DC Albuterol Sulfate (Ventolin) 2.5 mg PRN Q4HRS PRN NEB SHORTNESS OF BREATH; Start 12/18/16 at 13:45 Acetaminophen/ Aspirin/Caffeine (Excedrin Migraine) 1 tab PRN Q6HRS PRN PO HEADACHE; Start 12/18/16 at 13:45 Baclofen (Lioresal) 10 mg BID PO Last administered on 01/01/17 19:46; Start at 21:00 Ergocalciferol (Vitamin D2) 50,000 unit QMTH PO ; Start 12/21/16 at 16:00; Stop 12/21/16 at 16:00; Status DC Metoprolol Tartrate (Lopressor) 25 mg BID PO Last administered on 01/01/17 19: 46; Start 12/18/16 at 21:00 Polyethylene Glycol (miraLAX) 17 gm PRN Q12HR PRN PO CONSTIPATION Last administered on 12/20/16 17:34; Start 12/18/16 at 13:45 Senna/Docusate Sodium (Senna Plus) 1 tab Q12HR PO Last administered on 19:45; Start 12/18/16 at 21:00 Tramadol HCl (Ultram) 50 mg PRN Q6HRS PRN PO PAIN Last administered on 20:39; Start 12/18/16 at 13:45 Flecainide Acetate (Tambocor) 50 mg Q12HR PO Last administered on 01/01/17 19: 47; Start 12/18/16 at 21:00 Risperidone (RisperDAL) 0.125 mg BID PO Last administered on 01/01/17 19:46; Start 12/18/16 at 21:00 Divalproex Sodium (Depakote Sprinkles) 250 mg BID PO Last administered on 09:55; Start 12/18/16 at 21:00; Stop 12/21/16 at 12:37; Status DC Ergocalciferol (Vitamin D2) 50,000 unit Q2WKS PO Last administered on 12/21/16 09:57; Start 12/21/16 at 16:00 Escitalopram Oxalate (Lexapro) 5 mg DAILY PO Last administered on 12/22/16 07: 50; Start 12/20/16 at 09:00; Stop 12/22/16 at 16:47; Status DC Divalproex Sodium (Depakote Sprinkles) 375 mg BID PO Last administered on 08:46; Start 12/21/16 at 21:00; Stop 12/23/16 at 16:23; Status DC Escitalopram Oxalate (Lexapro) 10 mg DAILY PO Last administered on 01/01/17 08 :07; Start 12/23/16 at 09:00 Divalproex Sodium (Depakote Sprinkles) 500 mg BID PO Last administered on 19:46; Start 12/23/16 at 21:00 Mirtazapine (Remeron) 7.5 mg QHS PO Last administered on 12/26/16 21:58; Start 12/23/16 at 21:00; Stop 12/27/16 at 18:49; Status DC Mirtazapine (Remeron) 15 mg QHS PO Last administered on 01/01/17 19:46; Start 12/27/16 at 21:00 Trazodone HCl (Desyrel) 50 mg QHS PO Last administered on 01/01/17 19:45; Start 12/27/16 at 21:00 Active Scripts Active Reported Albuterol Sulfate Neb Soln (Albuterol Sulfate) 2.5 Mg/3 Ml Vial.neb 1 Vial NEB PRN Q4HRS PRN Tramadol Hcl (Tramadol HCl) 50 Mg Tablet 50 Mg PO PRN Q6HRS PRN Topiramate 25 Mg Tablet 12.5 Mg PO BID Senokot-S Tablet (Sennosides/Docusate Sodium) 1 Each Tablet 1 Tab PO Q12HR Risperidone 0.5 Mg Tablet 0.25 Mg PO PRN Q12HR PRN Metoprolol Tartrate 25 Mg Tablet 37.5 Tab PO BID Hydroxyzine Pamoate 25 Mg Capsule 1 Cap PO BID Glycolax (Polyethylene Glycol 3350) 119 Gm Powder 17 Gm PO PRN Q12HR PRN Flecainide Acetate 100 Mg Tablet 50 Mg PO Q12HR Excedrin Migraine Caplet (Aspirin/Acetaminophen/Caffeine) 1 Each Tablet 1 Each PO PRN Q6HRS PRN Vitamin D2 (Ergocalciferol (Vitamin D2)) 50,000 Unit Capsule 50,000 Unit PO QMTH Depakote (Divalproex Sodium) 500 Mg Tablet.dr 1 Tab PO DAILY Baclofen 10 Mg Tablet 1 Tab PO BID Diagnosis: Problems: (1) Anxiety disorder (2) Impulse control disorder (3) Major depressive disorder, recurrent episode (4) Dementia in [place] disease with behavioral disturbance TONEY AGGARWAL MD Jan 01, 2017 21:01
--- NOTE | 2017-01-02 00:15 | NUR ---
Behavior Intervention Response and Plan: BIRP Note: Behavior: Assumed Care of patient, patient located in Patient Room at shift change. Patient exhibited the following behavior Calm, Compliant, Cooperative. Brief assessment on rounds of vital signs, medication needs, lab studies, and pain. Treatment plan problems Dementia with Bd and Fall Risk. Intervention: Patient assessed and the following interventions initiated safety checks 15 Minute Checks Cognitive Assessment , Head to toe Assessment , Medications. Response: After interactions and interventions patient responded in the following manner, Calm , Compliant ,Cooperative. Continue to assess behaviors and condition will continue to monitor throughout the shift as needed. Plan: Continue to monitor Master Treatment Plan for patient's progress toward short term goals of Decreased Agitation, Medication Compliance, clinical application consultant goals to return to previous living setting vs placement. Continue to assess patient for changes in above assessment. Monitor for medication needs, pain, and safety concerns. Hourly rounding performed to ensure safe environment.
[2017-01-02 06:25] VITALS: BP 135/76
[2017-01-02 06:36] LABS: BASO # 0.1 x10^3/uL (0.0-0.2); BASO % 1 % (0-3); EOS # 0.2 x10^3/uL (0.0-0.7); EOS % 2 % (0-3); HEMATOCRIT 39.7 % (36.0-47.0); HEMOGLOBIN 13.2 g/dL (12.0-15.5); LYMPH # 1.5 x10^3/uL (1.0-4.8); LYMPH % 14 % (24-48); MEAN CORPUSCULAR HEMOGLOBIN 29 pg (25-35); MEAN CORPUSCULAR HGB CONC 33 g/dL (31-37); MEAN CORPUSCULAR VOLUME 87 fL (79-100); MONO # 1.2 x10^3/uL (0.0-1.1); MONO % 11 % (0-9); NEUT # 7.9 x10^3uL (1.8-7.7); NEUT % 73 % (31-73); PLATELET COUNT 233 x10^3/uL (140-400); RED BLOOD COUNT 4.59 x10^6/uL (3.50-5.40); RED CELL DISTRIBUTION WIDTH 13.4 % (11.5-14.5); WHITE BLOOD COUNT 10.8 x10^3/uL (4.0-11.0)
[2017-01-02 06:49] LABS: ALBUMIN 3.1 g/dL (3.4-5.0); ALBUMIN/GLOBULIN RATIO 0.9 (1.0-1.7); CALCIUM 8.3 mg/dL (8.5-10.1); CREATININE 0.7 mg/dL (0.6-1.0); GFR 83.7; POTASSIUM 4.5 mmol/L (3.5-5.1); TOTAL BILIRUBIN 0.2 mg/dL (0.2-1.0); TOTAL PROTEIN 6.4 g/dL (6.4-8.2)
[2017-01-02] MEDS: risperiDONE 0.25 MG TABLET. PO SCH ×2 (08:37→19:54)
[2017-01-02] MEDS: METOPROLOL TART IMMED RELEASE 25 MG TABLET PO SCH ×2 (08:37→19:55)
[2017-01-02] MEDS: ESCITALOPRAM 10 MG TABLET. PO SCH (08:37)
[2017-01-02] MEDS: hydrOXYzine PAMOATE 25 MG CAPSULE PO SCH ×2 (08:38→19:54)
[2017-01-02] MEDS: BACLOFEN 10 MG TABLET PO SCH ×2 (08:38→19:54)
[2017-01-02] MEDS: SENNOSIDES/DOCUSATE 8.6/50MG TABLET. PO SCH ×2 (08:38→19:54)
[2017-01-02] MEDS: FLECAINIDE 50 MG TABLET. PO SCH ×2 (08:38→19:55)
[2017-01-02] MEDS: DIVALPROEX 125 MG CAP.SPRINK PO SCH ×2 (08:38→19:55)
--- NOTE | 2017-01-02 10:16 | NUR ---
Behavior Intervention Response and Plan: BIRP Note: Behavior: Assumed Care of patient, patient located in Dining Room at shift change. Patient exhibited the following behavior Disorganized, Restless, Compliant. Brief assessment on rounds of vital signs, medication needs, lab studies, and pain. Treatment plan problems . Intervention: Patient assessed and the following interventions initiated safety checks 15 Minute Checks Cognitive Assessment , Head to toe Assessment , Medications. Response: After interactions and interventions patient responded in the following manner, Compliant , Disorganized ,Withdrawn. Continue to assess behaviors and condition will continue to monitor throughout the shift as needed. Plan: Continue to monitor Master Treatment Plan for patient's progress toward short term goals of Decreased Agitation, Decreased Aggression, nursing home goals to return to previous living setting vs placement. Continue to assess patient for changes in above assessment. Monitor for medication needs, pain, and safety concerns. Hourly rounding performed to ensure safe environment.
[2017-01-02] MEDS: MAGNESIUM HYDROXIDE 2,400 MG/30 ML ORAL.SUSP. PO PRN (15:30)
[2017-01-02 16:47] VITALS: BP 118/76
--- NOTE | 2017-01-02 17:03 | NUR ---
pt up in wc. out for meals and day room. c/o constipation gave brown cow. had large BM.
[2017-01-02] MEDS: traZODone 50 MG TABLET. PO SCH (19:54)
[2017-01-02] MEDS: MIRTAZAPINE 7.5 MG TABLET. PO SCH (19:54)
--- NOTE | 2017-01-02 20:18 | PN ---
DATE: 01/01/2017 PSYCHIATRIC PROGRESS NOTE This is a late entry of 01/01/2017 covers elements not covered in my initial note. SUBJECTIVE: The patient was seen individually evening of 01/01/2017. Per nursing report, she slept reasonably last night. No nightmares, there has been calmer most of the day compliant. Movements consistent with [place]'s are evident as is the impaired gait. She is in her wheelchair. No CV, , pulmonary, eye system symptoms on review. She is shaking my hand as I met with her in this fairly typical for her and appropriate. She is quite appropriate in this respect. MENTAL STATUS EXAM: Oriented to herself. Insight, judgment, recent and remote memory, attention, concentration, fund of knowledge poor, consistent with her diagnosis. LABORATORY DATA: Reviewed. IMPRESSION: Unchanged from initial note. PLAN: Continue psychotropics mentioned in my initial note. MAN Tonny AGGARWAL MD DR: CECI/evert JOB#: [id number] / [id number]
--- NOTE | 2017-01-02 22:11 | NUR ---
Behavior Intervention Response and Plan: BIRP Note: Behavior: Assumed Care of patient, patient located in Patient Room at shift change. Patient exhibited the following behavior Calm, Compliant, Cooperative. Brief assessment on rounds of vital signs, medication needs, lab studies, and pain. Treatment plan problems Dementia with Bd and Fall Risk. Intervention: Patient assessed and the following interventions initiated safety checks 15 Minute Checks Cognitive Assessment , Head to toe Assessment , Medications. Response: After interactions and interventions patient responded in the following manner, Calm , Compliant ,Cooperative. Continue to assess behaviors and condition will continue to monitor throughout the shift as needed. Plan: Continue to monitor Master Treatment Plan for patient's progress toward short term goals of Decreased Agitation, Medication Compliance, terminal gauger supervisor goals to return to previous living setting vs placement. Continue to assess patient for changes in above assessment. Monitor for medication needs, pain, and safety concerns. Hourly rounding performed to ensure safe environment.
--- NOTE | 2017-01-02 22:49 | PDOC ---
Exam Cheng Demential Exam: Cheng Note: Please also refer to the separate dictated note~for this date of service dictated separately.~Patient seen individually. Discussed the patient with Nursing staff reviewed the chart.~Reviewed interim history and current functioning. Reviewed vital signs,~Labs/ Radiology~and current medications noted below. Continue current treatment with the changes noted in the dictated addendum note Assessment: Vital Signs: Vital Signs Date Time Temp Pulse Resp B/P (MAP) Pulse Ox O2 Delivery O2 Flow Rate FiO2 01/02/17 19:55 70 118/76 01/02/17 16:47 98.7 18 95 12/31/16 16:06 Room Air I&O Intake and Output 01/02/17 07:00 Intake Total 600 ml Balance 600 ml Intake Oral 600 ml Labs: Laboratory Tests Test 01/02/17 06:25 White Blood Count 10.8 x10^3/uL (4.0-11.0) Red Blood Count 4.59 x10^6/uL (3.50-5.40) Hemoglobin 13.2 g/dL (12.0-15.5) Hematocrit 39.7 % (36.0-47.0) Mean Corpuscular Volume 87 fL (79-100) Mean Corpuscular Hemoglobin 29 pg (25-35) Mean Corpuscular Hemoglobin Concent 33 g/dL (31-37) Red Cell Distribution Width 13.4 % (11.5-14.5) Platelet Count 233 x10^3/uL (140-400) Neutrophils (%) (Auto) 73 % (31-73) Lymphocytes (%) (Auto) 14 % (24-48) L Monocytes (%) (Auto) 11 % (0-9) H Eosinophils (%) (Auto) 2 % (0-3) Basophils (%) (Auto) 1 % (0-3) Neutrophils # (Auto) 7.9 x10^3uL (1.8-7.7) H Lymphocytes # (Auto) 1.5 x10^3/uL (1.0-4.8) Monocytes # (Auto) 1.2 x10^3/uL (0.0-1.1) H Eosinophils # (Auto) 0.2 x10^3/uL (0.0-0.7) Basophils # (Auto) 0.1 x10^3/uL (0.0-0.2) Sodium Level 136 mmol/L (136-145) Potassium Level 4.5 mmol/L (3.5-5.1) Chloride Level 103 mmol/L (98-107) Carbon Dioxide Level 27 mmol/L (21-32) Anion Gap 6 (6-14) Blood Urea Nitrogen 23 mg/dL (7-20) H Creatinine 0.7 mg/dL (0.6-1.0) Estimated GFR (Cockcroft-Gault) 83.7 BUN/Creatinine Ratio 33 (6-20) H Glucose Level 96 mg/dL (70-99) Calcium Level 8.3 mg/dL (8.5-10.1) L Total Bilirubin 0.2 mg/dL (0.2-1.0) Aspartate Amino Transferase (AST) 12 U/L (15-37) L Alanine Aminotransferase (ALT) 17 U/L (14-59) Alkaline Phosphatase 68 U/L (46-116) Total Protein 6.4 g/dL (6.4-8.2) Albumin 3.1 g/dL (3.4-5.0) L Albumin/Globulin Ratio 0.9 (1.0-1.7) L Current Medications: Meds: Current Medications Acetaminophen (Tylenol) 650 mg PRN Q6HRS PRN PO PAIN / TEMP Last administered on 12/28/16 02:53; Start 12/18/16 at 12:30 Multi-Ingredient Ointment (Analgesic [place]) 1 payton PRN QID PRN TP MUSCLE PAIN; Start 12/18/16 at 12:30 Al Hydroxide/Mg Hydroxide (Mylanta Plus Xs) 15 ml PRN AFTMEALHC PRN PO DYSPEPSIA; Start 12/18/16 at 12:30 Magnesium Hydroxide (Milk Of Magnesia) 2,400 mg PRN QHS PRN PO CONSTIPATION Last administered on 01/02/17 15:30; Start 12/18/16 at 12:30 Hydroxyzine Pamoate (Vistaril) 25 mg BID PO Last administered on 01/02/17 19: 54; Start 12/18/16 at 21:00 Risperidone (RisperDAL) 0.25 mg PRN Q12HR PRN PO ANXIETY / AGITATION Last administered on 12/23/16 01:45; Start 12/18/16 at 13:30 Topiramate (Topamax) 12.5 mg BID PO Last administered on 12/23/16 08:45; Start 12/18/16 at 21:00; Stop 12/23/16 at 17:47; Status DC Divalproex Sodium (Depakote Er) 500 mg DAILY PO ; Start 12/19/16 at 09:00; Stop 12/19/16 at 09:00; Status DC Albuterol Sulfate (Ventolin) 2.5 mg PRN Q4HRS PRN NEB SHORTNESS OF BREATH; Start 12/18/16 at 13:45 Acetaminophen/ Aspirin/Caffeine (Excedrin Migraine) 1 tab PRN Q6HRS PRN PO HEADACHE; Start 12/18/16 at 13:45 Baclofen (Lioresal) 10 mg BID PO Last administered on 01/02/17 19:54; Start at 21:00 Ergocalciferol (Vitamin D2) 50,000 unit QMTH PO ; Start 12/21/16 at 16:00; Stop 12/21/16 at 16:00; Status DC Metoprolol Tartrate (Lopressor) 25 mg BID PO Last administered on 01/02/17 19: 55; Start 12/18/16 at 21:00 Polyethylene Glycol (miraLAX) 17 gm PRN Q12HR PRN PO CONSTIPATION Last administered on 12/20/16 17:34; Start 12/18/16 at 13:45 Senna/Docusate Sodium (Senna Plus) 1 tab Q12HR PO Last administered on 19:54; Start 12/18/16 at 21:00 Tramadol HCl (Ultram) 50 mg PRN Q6HRS PRN PO PAIN Last administered on 20:39; Start 12/18/16 at 13:45 Flecainide Acetate (Tambocor) 50 mg Q12HR PO Last administered on 01/02/17 19: 55; Start 12/18/16 at 21:00 Risperidone (RisperDAL) 0.125 mg BID PO Last administered on 01/02/17 19:54; Start 12/18/16 at 21:00 Divalproex Sodium (Depakote Sprinkles) 250 mg BID PO Last administered on 09:55; Start 12/18/16 at 21:00; Stop 12/21/16 at 12:37; Status DC Ergocalciferol (Vitamin D2) 50,000 unit Q2WKS PO Last administered on 12/21/16 09:57; Start 12/21/16 at 16:00 Escitalopram Oxalate (Lexapro) 5 mg DAILY PO Last administered on 12/22/16 07: 50; Start 12/20/16 at 09:00; Stop 12/22/16 at 16:47; Status DC Divalproex Sodium (Depakote Sprinkles) 375 mg BID PO Last administered on 08:46; Start 12/21/16 at 21:00; Stop 12/23/16 at 16:23; Status DC Escitalopram Oxalate (Lexapro) 10 mg DAILY PO Last administered on 01/02/17 08 :37; Start 12/23/16 at 09:00 Divalproex Sodium (Depakote Sprinkles) 500 mg BID PO Last administered on 19:55; Start 12/23/16 at 21:00 Mirtazapine (Remeron) 7.5 mg QHS PO Last administered on 12/26/16 21:58; Start 12/23/16 at 21:00; Stop 12/27/16 at 18:49; Status DC Mirtazapine (Remeron) 15 mg QHS PO Last administered on 01/02/17 19:54; Start 12/27/16 at 21:00 Trazodone HCl (Desyrel) 50 mg QHS PO Last administered on 01/02/17 19:54; Start 12/27/16 at 21:00 Active Scripts Active Reported Albuterol Sulfate Neb Soln (Albuterol Sulfate) 2.5 Mg/3 Ml Vial.neb 1 Vial NEB PRN Q4HRS PRN Tramadol Hcl (Tramadol HCl) 50 Mg Tablet 50 Mg PO PRN Q6HRS PRN Topiramate 25 Mg Tablet 12.5 Mg PO BID Senokot-S Tablet (Sennosides/Docusate Sodium) 1 Each Tablet 1 Tab PO Q12HR Risperidone 0.5 Mg Tablet 0.25 Mg PO PRN Q12HR PRN Metoprolol Tartrate 25 Mg Tablet 37.5 Tab PO BID Hydroxyzine Pamoate 25 Mg Capsule 1 Cap PO BID Glycolax (Polyethylene Glycol 3350) 119 Gm Powder 17 Gm PO PRN Q12HR PRN Flecainide Acetate 100 Mg Tablet 50 Mg PO Q12HR Excedrin Migraine Caplet (Aspirin/Acetaminophen/Caffeine) 1 Each Tablet 1 Each PO PRN Q6HRS PRN Vitamin D2 (Ergocalciferol (Vitamin D2)) 50,000 Unit Capsule 50,000 Unit PO QMTH Depakote (Divalproex Sodium) 500 Mg Tablet.dr 1 Tab PO DAILY Baclofen 10 Mg Tablet 1 Tab PO BID Diagnosis: Problems: (1) Anxiety disorder (2) Impulse control disorder (3) Major depressive disorder, recurrent episode (4) 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
[2017-01-03 06:50] VITALS: BP 124/82
[2017-01-03] MEDS: ESCITALOPRAM 10 MG TABLET. PO SCH (07:20)
[2017-01-03] MEDS: risperiDONE 0.25 MG TABLET. PO SCH ×2 (07:20→19:41)
[2017-01-03] MEDS: hydrOXYzine PAMOATE 25 MG CAPSULE PO SCH ×2 (07:20→19:41)
[2017-01-03] MEDS: DIVALPROEX 125 MG CAP.SPRINK PO SCH ×2 (07:20→19:40)
[2017-01-03] MEDS: BACLOFEN 10 MG TABLET PO SCH ×2 (07:21→19:41)
[2017-01-03] MEDS: METOPROLOL TART IMMED RELEASE 25 MG TABLET PO SCH ×2 (07:21→19:41)
[2017-01-03] MEDS: SENNOSIDES/DOCUSATE 8.6/50MG TABLET. PO SCH ×2 (07:24→19:41)
[2017-01-03] MEDS: FLECAINIDE 50 MG TABLET. PO SCH ×2 (07:24→19:41)
--- NOTE | 2017-01-03 09:15 | NUR ---
Behavior Intervention Response and Plan: BIRP Note: Behavior: Assumed Care of patient, patient located in Dining Room at shift change. Patient exhibited the following behavior Disorganized, Restless, Compliant. Brief assessment on rounds of vital signs, medication needs, lab studies, and pain. Treatment plan problems . Intervention: Patient assessed and the following interventions initiated safety checks 15 Minute Checks Cognitive Assessment , Head to toe Assessment , Medications. Response: After interactions and interventions patient responded in the following manner, Compliant , Disorganized ,Withdrawn. Continue to assess behaviors and condition will continue to monitor throughout the shift as needed. Plan: Continue to monitor Master Treatment Plan for patient's progress toward short term goals of Decreased Agitation, Decreased Aggression, penitentiary goals to return to previous living setting vs placement. Continue to assess patient for changes in above assessment. Monitor for medication needs, pain, and safety concerns. Hourly rounding performed to ensure safe environment.
--- NOTE | 2017-01-03 15:41 | NUR ---
pt up in wc. med compliant . tearful intermittently.
[2017-01-03 16:40] VITALS: BP 118/77
[2017-01-03] MEDS: traZODone 50 MG TABLET. PO SCH (19:41)
[2017-01-03] MEDS: MIRTAZAPINE 7.5 MG TABLET. PO SCH (19:41)
--- NOTE | 2017-01-03 21:27 | PDOC ---
Exam Cheng Demential Exam: Cheng Note: Please also refer to the separate dictated note~for this date of service dictated separately.~Patient seen individually. Discussed the patient with Nursing staff reviewed the chart.~Reviewed interim history and current functioning. Reviewed vital signs,~Labs/ Radiology~and current medications noted below. Continue current treatment with the changes noted in the dictated addendum note Assessment: Vital Signs: Vital Signs Date Time Temp Pulse Resp B/P (MAP) Pulse Ox O2 Delivery O2 Flow Rate FiO2 01/03/17 19:41 75 118/77 01/03/17 16:40 98.8 20 94 Room Air I&O Intake and Output 01/03/17 07:00 Intake Total 2160 ml Balance 2160 ml Intake Oral 2160 ml # Bowel Movements 3 Current Medications: Meds: Current Medications Acetaminophen (Tylenol) 650 mg PRN Q6HRS PRN PO PAIN / TEMP Last administered on 12/28/16 02:53; Start 12/18/16 at 12:30 Multi-Ingredient Ointment (Analgesic [place]) 1 payton PRN QID PRN TP MUSCLE PAIN; Start 12/18/16 at 12:30 Al Hydroxide/Mg Hydroxide (Mylanta Plus Xs) 15 ml PRN AFTMEALHC PRN PO DYSPEPSIA; Start 12/18/16 at 12:30 Magnesium Hydroxide (Milk Of Magnesia) 2,400 mg PRN QHS PRN PO CONSTIPATION Last administered on 01/02/17 15:30; Start 12/18/16 at 12:30 Hydroxyzine Pamoate (Vistaril) 25 mg BID PO Last administered on 01/03/17 19: 41; Start 12/18/16 at 21:00 Risperidone (RisperDAL) 0.25 mg PRN Q12HR PRN PO ANXIETY / AGITATION Last administered on 12/23/16 01:45; Start 12/18/16 at 13:30 Topiramate (Topamax) 12.5 mg BID PO Last administered on 12/23/16 08:45; Start 12/18/16 at 21:00; Stop 12/23/16 at 17:47; Status DC Divalproex Sodium (Depakote Er) 500 mg DAILY PO ; Start 12/19/16 at 09:00; Stop 12/19/16 at 09:00; Status DC Albuterol Sulfate (Ventolin) 2.5 mg PRN Q4HRS PRN NEB SHORTNESS OF BREATH; Start 12/18/16 at 13:45 Acetaminophen/ Aspirin/Caffeine (Excedrin Migraine) 1 tab PRN Q6HRS PRN PO HEADACHE; Start 12/18/16 at 13:45 Baclofen (Lioresal) 10 mg BID PO Last administered on 01/03/17 19:41; Start at 21:00 Ergocalciferol (Vitamin D2) 50,000 unit QMTH PO ; Start 12/21/16 at 16:00; Stop 12/21/16 at 16:00; Status DC Metoprolol Tartrate (Lopressor) 25 mg BID PO Last administered on 01/03/17 19: 41; Start 12/18/16 at 21:00 Polyethylene Glycol (miraLAX) 17 gm PRN Q12HR PRN PO CONSTIPATION Last administered on 12/20/16 17:34; Start 12/18/16 at 13:45 Senna/Docusate Sodium (Senna Plus) 1 tab Q12HR PO Last administered on 19:41; Start 12/18/16 at 21:00 Tramadol HCl (Ultram) 50 mg PRN Q6HRS PRN PO PAIN Last administered on 20:39; Start 12/18/16 at 13:45 Flecainide Acetate (Tambocor) 50 mg Q12HR PO Last administered on 01/03/17 19: 41; Start 12/18/16 at 21:00 Risperidone (RisperDAL) 0.125 mg BID PO Last administered on 01/03/17 19:41; Start 12/18/16 at 21:00 Divalproex Sodium (Depakote Sprinkles) 250 mg BID PO Last administered on 09:55; Start 12/18/16 at 21:00; Stop 12/21/16 at 12:37; Status DC Ergocalciferol (Vitamin D2) 50,000 unit Q2WKS PO Last administered on 12/21/16 09:57; Start 12/21/16 at 16:00 Escitalopram Oxalate (Lexapro) 5 mg DAILY PO Last administered on 12/22/16 07: 50; Start 12/20/16 at 09:00; Stop 12/22/16 at 16:47; Status DC Divalproex Sodium (Depakote Sprinkles) 375 mg BID PO Last administered on 08:46; Start 12/21/16 at 21:00; Stop 12/23/16 at 16:23; Status DC Escitalopram Oxalate (Lexapro) 10 mg DAILY PO Last administered on 01/03/17 07 :20; Start 12/23/16 at 09:00 Divalproex Sodium (Depakote Sprinkles) 500 mg BID PO Last administered on 19:40; Start 12/23/16 at 21:00 Mirtazapine (Remeron) 7.5 mg QHS PO Last administered on 12/26/16 21:58; Start 12/23/16 at 21:00; Stop 12/27/16 at 18:49; Status DC Mirtazapine (Remeron) 15 mg QHS PO Last administered on 01/03/17 19:41; Start 12/27/16 at 21:00 Trazodone HCl (Desyrel) 50 mg QHS PO Last administered on 01/03/17 19:41; Start 12/27/16 at 21:00 Active Scripts Active Reported Albuterol Sulfate Neb Soln (Albuterol Sulfate) 2.5 Mg/3 Ml Vial.neb 1 Vial NEB PRN Q4HRS PRN Tramadol Hcl (Tramadol HCl) 50 Mg Tablet 50 Mg PO PRN Q6HRS PRN Topiramate 25 Mg Tablet 12.5 Mg PO BID Senokot-S Tablet (Sennosides/Docusate Sodium) 1 Each Tablet 1 Tab PO Q12HR Risperidone 0.5 Mg Tablet 0.25 Mg PO PRN Q12HR PRN Metoprolol Tartrate 25 Mg Tablet 37.5 Tab PO BID Hydroxyzine Pamoate 25 Mg Capsule 1 Cap PO BID Glycolax (Polyethylene Glycol 3350) 119 Gm Powder 17 Gm PO PRN Q12HR PRN Flecainide Acetate 100 Mg Tablet 50 Mg PO Q12HR Excedrin Migraine Caplet (Aspirin/Acetaminophen/Caffeine) 1 Each Tablet 1 Each PO PRN Q6HRS PRN Vitamin D2 (Ergocalciferol (Vitamin D2)) 50,000 Unit Capsule 50,000 Unit PO QMTH Depakote (Divalproex Sodium) 500 Mg Tablet.dr 1 Tab PO DAILY Baclofen 10 Mg Tablet 1 Tab PO BID Diagnosis: Problems: (1) Anxiety disorder (2) Impulse control disorder (3) Major depressive disorder, recurrent episode (4) 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
--- NOTE | 2017-01-04 01:17 | PN ---
DATE: 01/02/2017 PSYCHIATRIC PROGRESS NOTE This is a late entry of 01/02/2017 covers elements not covered in my initial note. 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 She has been constipated, had a large bowel movement after receiving "brown cow." REVIEW OF SYSTEMS: Ambulation impaired in wheelchair. No CV, , pulmonary, eye system symptoms on review. Reliability poor. MENTAL STATUS EXAM: Oriented to herself. Insight, judgment, recent memory is impaired. Mood and affect labile, but better. LABORATORY DATA: Reviewed. IMPRESSION: Unchanged from initial note. 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 Valproic acid level therapeutic at 74. PLAN: Continue Depakote 500 b.i.d., hydroxyzine 25 b.i.d., Risperdal p.r.n. and 0.125 mg twice a day, Lexapro 10 mg a day, Remeron 15 at bedtime, trazodone 50 at bedtime november repeat x1. MAN Tonny AGGARWAL MD DR: CECI/evert JOB#: [id number] / [id number]
--- NOTE | 2017-01-04 02:15 | PN ---
DATE: 01/03/2017 PSYCHIATRIC PROGRESS NOTE This note covers elements not covered in my initial note of 01/03/2017. SUBJECTIVE: The patient is doing reasonably well, quite confused, has movements consequent to [place]'s, impaired ambulation in her wheelchair. REVIEW OF SYSTEMS: No CV, , eye, ENT system symptoms on review. MENTAL STATUS EXAM: Oriented to herself. Insight, judgment, recent and remote memory, attention, concentration, fund of knowledge poor, consistent with her diagnoses mentioned in my initial note. PLAN: Continue psychotropics mentioned in my initial note. MAN Tonny AGGARWAL MD DR: CECI/evert JOB#: [id number] / [id number]
[2017-01-04 06:30] VITALS: BP 115/77
--- NOTE | 2017-01-04 09:15 | NUR ---
THERAPEUTIC RECREATION GROUP NOTE TITLE :Beach Ball Bop ACTIVITY : Movement/ Exercise GOAL : Increase morale, attention, endurance, socialization. Decrease stress/anxiety. DURATION : 35 Minutes RESPONSE : Full participation. Pt. stayed with the group the first half of the session. She needed minimal to no prompting, she waited patiently in between her turns and was calm the entire time. The ball needed to be passed to her at a certain spot in order for her to hit it with good strength.
[2017-01-04] MEDS: METOPROLOL TART IMMED RELEASE 25 MG TABLET PO SCH ×2 (09:27→19:57)
[2017-01-04] MEDS: hydrOXYzine PAMOATE 25 MG CAPSULE PO SCH ×2 (09:27→19:57)
[2017-01-04] MEDS: FLECAINIDE 50 MG TABLET. PO SCH ×2 (09:27→20:00)
[2017-01-04] MEDS: ESCITALOPRAM 10 MG TABLET. PO SCH (09:27)
[2017-01-04] MEDS: SENNOSIDES/DOCUSATE 8.6/50MG TABLET. PO SCH ×2 (09:27→19:59)
[2017-01-04] MEDS: BACLOFEN 10 MG TABLET PO SCH ×2 (09:27→19:57)
[2017-01-04] MEDS: DIVALPROEX 125 MG CAP.SPRINK PO SCH ×2 (09:28→19:56)
[2017-01-04] MEDS: risperiDONE 0.25 MG TABLET. PO SCH ×2 (09:28→19:58)
[2017-01-04] MEDS: ERGOCALCIFEROL (VITAMIN D2) 50,000 UNIT CAPSULE PO SCH (09:32)
--- NOTE | 2017-01-04 10:03 | NUR ---
patient up ad lidia. Standing at [employer] stating that he was supposed to go to eye doctor December 18 and it is now January 05 and he cannot see. (This is not a new development, is reported that pt has cataracts) Appropriate and cooperative with medication administered whole at breakfast. Will continue to monitor. Addendum: 01/04/17 at 1356 by LD DAVE RN wrong patient
--- NOTE | 2017-01-04 10:05 | NUR ---
Behavior Intervention Response and Plan: BIRP Note: Behavior: Assumed Care of patient, patient located in Dining Room at shift change. Patient exhibited the following behavior Interactive, Calm, Appropriate. Brief assessment on rounds of vital signs, medication needs, lab studies, and pain. Treatment plan problems 1 and 2. Intervention: Patient assessed and the following interventions initiated safety checks 15 Minute Checks Cognitive Assessment , Head to toe Assessment , Medications. Response: After interactions and interventions patient responded in the following manner, Calm , Compliant ,Wandering. Continue to assess behaviors and condition will continue to monitor throughout the shift as needed. Plan: Continue to monitor Master Treatment Plan for patient's progress toward short term goals of Decreased Agitation, Decreased Aggression, dolly pusher goals to return to previous living setting vs placement. Continue to assess patient for changes in above assessment. Monitor for medication needs, pain, and safety concerns. Hourly rounding performed to ensure safe environment.
--- NOTE | 2017-01-04 11:15 | NUR ---
THERAPEUTIC RECREATION GROUP NOTE TITLE :Movement to Music: Strength ACTIVITY : Movement/ Exercise GOAL : Increase morale, attention, flexibility. Decrease stress/anxiety. DURATION : 45 Minutes RESPONSE : Moderate participation. Pt. followed along with the moves to the best of her abilities the entire time. She needed occasional reminders but complied quickly and was calm and pleasant to have in group.
--- NOTE | 2017-01-04 13:53 | NUR ---
SW left message for Pt's Court Appt. GuardianJenn regarding court update w/Pt's Significant Other's attempt at gaining Guardianship.
--- NOTE | 2017-01-04 14:15 | NUR ---
THERAPEUTIC RECREATION GROUP NOTE TITLE :ABC's of Leisure ACTIVITY : Leisure Awareness GOAL : Increase knowledge of leisure activities DURATION : 60 Minutes RESPONSE : Minimal participation. Pt. started with the group and flipped over cards but slowly started withdrawing, even after encouragement. She turned her back to the group and started making noises and hollering a little bit.
--- NOTE | 2017-01-04 14:25 | NUR ---
SW faxed admit referral to the following facilities: [place], [facility], [place], [facility], [facility], [facility], [place], [facility], [facility] Admissions.
[2017-01-04 16:56] VITALS: BP 109/66
[2017-01-04] MEDS: MIRTAZAPINE 7.5 MG TABLET. PO SCH (19:56)
[2017-01-04] MEDS: traZODone 50 MG TABLET. PO SCH (19:58)
--- NOTE | 2017-01-04 20:30 | NUR ---
Behavior Intervention Response and Plan: BIRP Note: Behavior: Assumed Care of patient, patient located in Day Room at shift change. Patient exhibited the following behavior Interactive, Calm, Appropriate. Brief assessment on rounds of vital signs, medication needs, lab studies, and pain. Treatment plan problems 1 and 2. Intervention: Patient assessed and the following interventions initiated safety checks 15 Minute Checks Cognitive Assessment , Head to toe Assessment , Medications, Nutrition, Oral Hydration. Response: After interactions and interventions patient responded in the following manner, Calm , Compliant ,Cooperative. Continue to assess behaviors and condition will continue to monitor throughout the shift as needed. Plan: Continue to monitor Master Treatment Plan for patient's progress toward short term goals of Decreased Agitation, Decreased Anxiety, return to service inspector goals to return to previous living setting vs placement. Continue to assess patient for changes in above assessment. Monitor for medication needs, pain, and safety concerns. Hourly rounding performed to ensure safe environment.
--- NOTE | 2017-01-04 22:51 | PDOC ---
Exam Cheng Demential Exam: Cheng Note: Please also refer to the separate dictated note~for this date of service dictated separately.~Patient seen individually. Discussed the patient with Nursing staff reviewed the chart.~Reviewed interim history and current functioning. Reviewed vital signs,~Labs/ Radiology~and current medications noted below. Continue current treatment with the changes noted in the dictated addendum note Assessment: Vital Signs: Vital Signs Date Time Temp Pulse Resp B/P (MAP) Pulse Ox O2 Delivery O2 Flow Rate FiO2 01/04/17 20:00 68 109/66 01/04/17 16:56 98.5 18 94 01/03/17 16:40 Room Air I&O Intake and Output 01/04/17 07:00 Intake Total 1200 ml Balance 1200 ml Intake Oral 1200 ml Current Medications: Meds: Current Medications Acetaminophen (Tylenol) 650 mg PRN Q6HRS PRN PO PAIN / TEMP Last administered on 12/28/16 02:53; Start 12/18/16 at 12:30 Multi-Ingredient Ointment (Analgesic [place]) 1 payton PRN QID PRN TP MUSCLE PAIN; Start 12/18/16 at 12:30 Al Hydroxide/Mg Hydroxide (Mylanta Plus Xs) 15 ml PRN AFTMEALHC PRN PO DYSPEPSIA; Start 12/18/16 at 12:30 Magnesium Hydroxide (Milk Of Magnesia) 2,400 mg PRN QHS PRN PO CONSTIPATION Last administered on 01/02/17 15:30; Start 12/18/16 at 12:30 Hydroxyzine Pamoate (Vistaril) 25 mg BID PO Last administered on 01/04/17 19: 57; Start 12/18/16 at 21:00 Risperidone (RisperDAL) 0.25 mg PRN Q12HR PRN PO ANXIETY / AGITATION Last administered on 12/23/16 01:45; Start 12/18/16 at 13:30 Topiramate (Topamax) 12.5 mg BID PO Last administered on 12/23/16 08:45; Start 12/18/16 at 21:00; Stop 12/23/16 at 17:47; Status DC Divalproex Sodium (Depakote Er) 500 mg DAILY PO ; Start 12/19/16 at 09:00; Stop 12/19/16 at 09:00; Status DC Albuterol Sulfate (Ventolin) 2.5 mg PRN Q4HRS PRN NEB SHORTNESS OF BREATH; Start 12/18/16 at 13:45 Acetaminophen/ Aspirin/Caffeine (Excedrin Migraine) 1 tab PRN Q6HRS PRN PO HEADACHE; Start 12/18/16 at 13:45 Baclofen (Lioresal) 10 mg BID PO Last administered on 01/04/17 19:57; Start at 21:00 Ergocalciferol (Vitamin D2) 50,000 unit QMTH PO ; Start 12/21/16 at 16:00; Stop 12/21/16 at 16:00; Status DC Metoprolol Tartrate (Lopressor) 25 mg BID PO Last administered on 01/04/17 19: 57; Start 12/18/16 at 21:00 Polyethylene Glycol (miraLAX) 17 gm PRN Q12HR PRN PO CONSTIPATION Last administered on 12/20/16 17:34; Start 12/18/16 at 13:45 Senna/Docusate Sodium (Senna Plus) 1 tab Q12HR PO Last administered on 19:59; Start 12/18/16 at 21:00 Tramadol HCl (Ultram) 50 mg PRN Q6HRS PRN PO PAIN Last administered on 20:39; Start 12/18/16 at 13:45 Flecainide Acetate (Tambocor) 50 mg Q12HR PO Last administered on 01/04/17 20: 00; Start 12/18/16 at 21:00 Risperidone (RisperDAL) 0.125 mg BID PO Last administered on 01/04/17 19:58; Start 12/18/16 at 21:00 Divalproex Sodium (Depakote Sprinkles) 250 mg BID PO Last administered on 09:55; Start 12/18/16 at 21:00; Stop 12/21/16 at 12:37; Status DC Ergocalciferol (Vitamin D2) 50,000 unit Q2WKS PO Last administered on 09:32; Start 12/21/16 at 16:00 Escitalopram Oxalate (Lexapro) 5 mg DAILY PO Last administered on 12/22/16 07: 50; Start 12/20/16 at 09:00; Stop 12/22/16 at 16:47; Status DC Divalproex Sodium (Depakote Sprinkles) 375 mg BID PO Last administered on 08:46; Start 12/21/16 at 21:00; Stop 12/23/16 at 16:23; Status DC Escitalopram Oxalate (Lexapro) 10 mg DAILY PO Last administered on 01/04/17 09 :27; Start 12/23/16 at 09:00 Divalproex Sodium (Depakote Sprinkles) 500 mg BID PO Last administered on 19:56; Start 12/23/16 at 21:00 Mirtazapine (Remeron) 7.5 mg QHS PO Last administered on 12/26/16 21:58; Start 12/23/16 at 21:00; Stop 12/27/16 at 18:49; Status DC Mirtazapine (Remeron) 15 mg QHS PO Last administered on 01/04/17 19:56; Start 12/27/16 at 21:00 Trazodone HCl (Desyrel) 50 mg QHS PO Last administered on 01/04/17 19:58; Start 12/27/16 at 21:00 Active Scripts Active Reported Albuterol Sulfate Neb Soln (Albuterol Sulfate) 2.5 Mg/3 Ml Vial.neb 1 Vial NEB PRN Q4HRS PRN Tramadol Hcl (Tramadol HCl) 50 Mg Tablet 50 Mg PO PRN Q6HRS PRN Topiramate 25 Mg Tablet 12.5 Mg PO BID Senokot-S Tablet (Sennosides/Docusate Sodium) 1 Each Tablet 1 Tab PO Q12HR Risperidone 0.5 Mg Tablet 0.25 Mg PO PRN Q12HR PRN Metoprolol Tartrate 25 Mg Tablet 37.5 Tab PO BID Hydroxyzine Pamoate 25 Mg Capsule 1 Cap PO BID Glycolax (Polyethylene Glycol 3350) 119 Gm Powder 17 Gm PO PRN Q12HR PRN Flecainide Acetate 100 Mg Tablet 50 Mg PO Q12HR Excedrin Migraine Caplet (Aspirin/Acetaminophen/Caffeine) 1 Each Tablet 1 Each PO PRN Q6HRS PRN Vitamin D2 (Ergocalciferol (Vitamin D2)) 50,000 Unit Capsule 50,000 Unit PO QMTH Depakote (Divalproex Sodium) 500 Mg Tablet.dr 1 Tab PO DAILY Baclofen 10 Mg Tablet 1 Tab PO BID Diagnosis: Problems: (1) 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
--- NOTE | 2017-01-05 00:53 | PN ---
DATE: 01/04/2017 PSYCHIATRIC PROGRESS NOTE SUBJECTIVE: The patient was seen individually the evening of 01/04/2017. Discussed with nursing staff, reviewed the chart. She has done better today, confused, forgetful with her movements, consistent with [place]'s, but not aggressive. REVIEW OF SYSTEMS: Ambulation impaired. No CV, , pulmonary, eye system symptoms on review. MENTAL STATUS EXAM: Oriented to herself. Insight, judgment, recent and remote memory, attention, concentration, fund of knowledge poor, consistent with her diagnosis. LABORATORY DATA: Reviewed. IMPRESSION: Unchanged from initial note. PLAN: Continue psychotropics mentioned in my initial note. MAN oTnny AGGARWAL MD DR: CECI/evert JOB#: [id number] / [id number]
[2017-01-05 06:07] VITALS: BP 106/68
[2017-01-05] MEDS: SENNOSIDES/DOCUSATE 8.6/50MG TABLET. PO SCH ×2 (08:45→19:13)
[2017-01-05] MEDS: BACLOFEN 10 MG TABLET PO SCH ×2 (08:45→19:11)
[2017-01-05] MEDS: hydrOXYzine PAMOATE 25 MG CAPSULE PO SCH ×2 (08:45→19:11)
[2017-01-05] MEDS: ESCITALOPRAM 10 MG TABLET. PO SCH (08:45)
[2017-01-05] MEDS: DIVALPROEX 125 MG CAP.SPRINK PO SCH ×2 (08:46→19:12)
[2017-01-05] MEDS: METOPROLOL TART IMMED RELEASE 25 MG TABLET PO SCH ×2 (08:46→19:10)
[2017-01-05] MEDS: risperiDONE 0.25 MG TABLET. PO SCH ×2 (08:46→19:11)
[2017-01-05] MEDS: FLECAINIDE 50 MG TABLET. PO SCH ×2 (08:48→19:25)
--- NOTE | 2017-01-05 09:20 | NUR ---
THERAPEUTIC RECREATION GROUP NOTE TITLE :Table Ball ACTIVITY : Movement/ Exercise GOAL : Increase morale, attention, endurance, socialization. Decrease stress/anxiety. DURATION : 70 Minutes RESPONSE : Full participation. Pt. stayed with the group the entire time and needed occasional prompting when the ball was coming her way. She bounced the ball nearly every time, instead of roll it on the table. She sang along to one song and was calm the entire time. She continued playing even after saying she was done.
--- NOTE | 2017-01-05 09:32 | NUR ---
JEFFERY left a message for [facility]t. In Home Aide regarding placement.
--- NOTE | 2017-01-05 09:39 | NUR ---
Behavior Intervention Response and Plan: BIRP Note: Behavior: Assumed Care of patient, patient located in Dining Room at shift change. Patient exhibited the following behavior Calm, Withdrawn, Compliant. Brief assessment on rounds of vital signs, medication needs, lab studies, and pain. Treatment plan problems 1 and 2. Intervention: Patient assessed and the following interventions initiated safety checks 15 Minute Checks Cognitive Assessment , Head to toe Assessment , Medications. Response: After interactions and interventions patient responded in the following manner, Calm , Interactive ,Compliant. Continue to assess behaviors and condition will continue to monitor throughout the shift as needed. Plan: Continue to monitor Master Treatment Plan for patient's progress toward short term goals of Medication Compliance, Decreased Agitation, emt intermediate goals to return to previous living setting vs placement. Continue to assess patient for changes in above assessment. Monitor for medication needs, pain, and safety concerns. Hourly rounding performed to ensure safe environment.
--- NOTE | 2017-01-05 11:30 | NUR ---
THERAPEUTIC RECREATION GROUP NOTE TITLE :Movement to Music: Flexibility ACTIVITY : Movement/ Exercise GOAL : Increase morale, attention, flexibility. Decrease stress/anxiety. DURATION : 30 Minutes RESPONSE : Full participation. Pt. was following along with moves to the best of her ability. She was calm and pleasant the entire time. She took her hair band out and nursing aid helped put it back up.
--- NOTE | 2017-01-05 14:00 | NUR ---
THERAPEUTIC RECREATION GROUP NOTE TITLE :Sing along with Rebecca ACTIVITY : Music GOAL : Increase socialization, elevate mood, stimulate memory DURATION : 45 minutes RESPONSE : Full participation. Pt. stayed with the group the entire time. She was alert and needed no prompting to stay on task. She sang along with the songs, applauded after one, and shared facts about her. She was a pleasure to have in group.
[2017-01-05 16:11] VITALS: BP 134/80
[2017-01-05] MEDS: traZODone 50 MG TABLET. PO SCH (19:11)
[2017-01-05] MEDS: MIRTAZAPINE 7.5 MG TABLET. PO SCH (19:11)
--- NOTE | 2017-01-05 20:07 | PDOC ---
Exam Cheng Demential Exam: Cheng Note: Please also refer to the separate dictated note~for this date of service dictated separately.~Patient seen individually. Discussed the patient with Nursing staff reviewed the chart.~Reviewed interim history and current functioning. Reviewed vital signs,~Labs/ Radiology~and current medications noted below. Continue current treatment with the changes noted in the dictated addendum note Assessment: Vital Signs: Vital Signs Date Time Temp Pulse Resp B/P (MAP) Pulse Ox O2 Delivery O2 Flow Rate FiO2 01/05/17 19:25 70 134/80 01/05/17 16:11 97.9 18 95 01/05/17 06:07 Room Air I&O Intake and Output 01/05/17 07:00 Intake Total 1100 ml Balance 1100 ml Intake Oral 1100 ml # Voids 1 # Bowel Movements 1 Current Medications: Meds: Current Medications Acetaminophen (Tylenol) 650 mg PRN Q6HRS PRN PO PAIN / TEMP Last administered on 12/28/16 02:53; Start 12/18/16 at 12:30 Multi-Ingredient Ointment (Analgesic [place]) 1 [place] PRN QID PRN TP MUSCLE PAIN; Start 12/18/16 at 12:30 Al Hydroxide/Mg Hydroxide (Mylanta Plus Xs) 15 ml PRN AFTMEALHC PRN PO DYSPEPSIA; Start 12/18/16 at 12:30 Magnesium Hydroxide (Milk Of Magnesia) 2,400 mg PRN QHS PRN PO CONSTIPATION Last administered on 01/02/17 15:30; Start 12/18/16 at 12:30 Hydroxyzine Pamoate (Vistaril) 25 mg BID PO Last administered on 01/05/17 19: 11; Start 12/18/16 at 21:00 Risperidone (RisperDAL) 0.25 mg PRN Q12HR PRN PO ANXIETY / AGITATION Last administered on 12/23/16 01:45; Start 12/18/16 at 13:30 Topiramate (Topamax) 12.5 mg BID PO Last administered on 12/23/16 08:45; Start 12/18/16 at 21:00; Stop 12/23/16 at 17:47; Status DC Divalproex Sodium (Depakote Er) 500 mg DAILY PO ; Start 12/19/16 at 09:00; Stop 12/19/16 at 09:00; Status DC Albuterol Sulfate (Ventolin) 2.5 mg PRN Q4HRS PRN NEB SHORTNESS OF BREATH; Start 12/18/16 at 13:45 Acetaminophen/ Aspirin/Caffeine (Excedrin Migraine) 1 tab PRN Q6HRS PRN PO HEADACHE; Start 12/18/16 at 13:45 Baclofen (Lioresal) 10 mg BID PO Last administered on 01/05/17 19:11; Start at 21:00 Ergocalciferol (Vitamin D2) 50,000 unit QMTH PO ; Start 12/21/16 at 16:00; Stop 12/21/16 at 16:00; Status DC Metoprolol Tartrate (Lopressor) 25 mg BID PO Last administered on 01/05/17 19: 10; Start 12/18/16 at 21:00 Polyethylene Glycol (miraLAX) 17 gm PRN Q12HR PRN PO CONSTIPATION Last administered on 12/20/16 17:34; Start 12/18/16 at 13:45 Senna/Docusate Sodium (Senna Plus) 1 tab Q12HR PO Last administered on 19:13; Start 12/18/16 at 21:00 Tramadol HCl (Ultram) 50 mg PRN Q6HRS PRN PO PAIN Last administered on 20:39; Start 12/18/16 at 13:45 Flecainide Acetate (Tambocor) 50 mg Q12HR PO Last administered on 01/05/17 19: 25; Start 12/18/16 at 21:00 Risperidone (RisperDAL) 0.125 mg BID PO Last administered on 01/05/17 19:11; Start 12/18/16 at 21:00 Divalproex Sodium (Depakote Sprinkles) 250 mg BID PO Last administered on 09:55; Start 12/18/16 at 21:00; Stop 12/21/16 at 12:37; Status DC Ergocalciferol (Vitamin D2) 50,000 unit Q2WKS PO Last administered on 09:32; Start 12/21/16 at 16:00 Escitalopram Oxalate (Lexapro) 5 mg DAILY PO Last administered on 12/22/16 07: 50; Start 12/20/16 at 09:00; Stop 12/22/16 at 16:47; Status DC Divalproex Sodium (Depakote Sprinkles) 375 mg BID PO Last administered on 08:46; Start 12/21/16 at 21:00; Stop 12/23/16 at 16:23; Status DC Escitalopram Oxalate (Lexapro) 10 mg DAILY PO Last administered on 01/05/17 08 :45; Start 12/23/16 at 09:00 Divalproex Sodium (Depakote Sprinkles) 500 mg BID PO Last administered on 19:12; Start 12/23/16 at 21:00 Mirtazapine (Remeron) 7.5 mg QHS PO Last administered on 12/26/16 21:58; Start 12/23/16 at 21:00; Stop 12/27/16 at 18:49; Status DC Mirtazapine (Remeron) 15 mg QHS PO Last administered on 01/05/17 19:11; Start 12/27/16 at 21:00 Trazodone HCl (Desyrel) 50 mg QHS PO Last administered on 01/05/17 19:11; Start 12/27/16 at 21:00 Active Scripts Active Reported Albuterol Sulfate Neb Soln (Albuterol Sulfate) 2.5 Mg/3 Ml Vial.neb 1 Vial NEB PRN Q4HRS PRN Tramadol Hcl (Tramadol HCl) 50 Mg Tablet 50 Mg PO PRN Q6HRS PRN Topiramate 25 Mg Tablet 12.5 Mg PO BID Senokot-S Tablet (Sennosides/Docusate Sodium) 1 Each Tablet 1 Tab PO Q12HR Risperidone 0.5 Mg Tablet 0.25 Mg PO PRN Q12HR PRN Metoprolol Tartrate 25 Mg Tablet 37.5 Tab PO BID Hydroxyzine Pamoate 25 Mg Capsule 1 Cap PO BID Glycolax (Polyethylene Glycol 3350) 119 Gm Powder 17 Gm PO PRN Q12HR PRN Flecainide Acetate 100 Mg Tablet 50 Mg PO Q12HR Excedrin Migraine Caplet (Aspirin/Acetaminophen/Caffeine) 1 Each Tablet 1 Each PO PRN Q6HRS PRN Vitamin D2 (Ergocalciferol (Vitamin D2)) 50,000 Unit Capsule 50,000 Unit PO QMTH Depakote (Divalproex Sodium) 500 Mg Tablet. 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
--- NOTE | 2017-01-05 22:56 | NUR ---
Behavior Intervention Response and Plan: BIRP Note: Behavior: Assumed Care of patient, patient located in Day Room at shift change. Patient exhibited the following behavior Calm, Withdrawn, Compliant. Brief assessment on rounds of vital signs, medication needs, lab studies, and pain. Treatment plan problems Dementia with Bd and Fall Risk. Intervention: Patient assessed and the following interventions initiated safety checks 15 Minute Checks Personal Alarm in place , Cognitive Assessment , Medications. Response: After interactions and interventions patient responded in the following manner, Calm , Compliant ,Cooperative. Continue to assess behaviors and condition will continue to monitor throughout the shift as needed. Plan: Continue to monitor Master Treatment Plan for patient's progress toward short term goals of Decreased Aggression, Decreased Agitation, mcfp goals to return to previous living setting vs placement. Continue to assess patient for changes in above assessment. Monitor for medication needs, pain, and safety concerns. Hourly rounding performed to ensure safe environment.
[2017-01-06] MEDS ORDERED: ACET325T9 PO (02:16)
[2017-01-06] MEDS ORDERED: ESCITALOPRAM OX10 MG PO (02:19)
[2017-01-06] MEDS ORDERED: MAG30ORA2 PO (02:21)
[2017-01-06] MEDS ORDERED: MAGN2400 PO (02:22)
[2017-01-06] MEDS ORDERED: METH29OI TP (02:22)
[2017-01-06] MEDS ORDERED: MIRT15TA3 PO (02:24)
[2017-01-06] MEDS ORDERED: RISP0.5T3 PO (02:25)
[2017-01-06] MEDS ORDERED: TRAZ50TA15 PO (02:26)
[2017-01-06] MEDS ORDERED: DIVA125C PO (02:29)
[2017-01-06 04:10] VITALS: BP 146/22
--- NOTE | 2017-01-06 04:24 | PN ---
DATE: 01/05/2017 This note covers the elements not covered in my initial note of 01/05/2017. SUBJECTIVE: The patient was seen individually, evening of 01/05/2017. Per nursing report, overall, she is doing reasonably well. Does have the [place]'s movements. REVIEW OF SYSTEMS: Ambulation impaired, in wheelchair. No CV, , pulmonary, eye system symptoms on review. MENTAL STATUS EXAM: Oriented to herself. Speech is coherent at times; otherwise, pressured slightly consequent to [place]'s, abstraction fair, computation impaired, language function intact. Memory is impaired. She is from [place], [place] and knows little bit about [place]. [facility] she brightened immediately and said loudly "yes, that is a good place." She was able to in fact be a little more coherent, as she said this. MENTAL STATUS EXAM: Insight, judgment, recent and remote memory, attention, concentration, fund of knowledge poor, consistent with her diagnosis mentioned in my initial note. IMPRESSION: Major neurocognitive disorder, [place] Alzheimer, vascular with delusion, depression, behavioral disturbance. Rest unchanged. PLAN: Continue current psychotropics. Adjust as indicated. TONEY AGGARWAL MD DR: CECI/evert JOB#: [id number] / [id number]
[2017-01-06] MEDS: risperiDONE 0.25 MG TABLET. PO PRN (04:58)
--- NOTE | 2017-01-06 07:05 | NUR ---
Nursing Note Patient agitated and beginning to escalate. Patient given PRN Risperdal @ 0458 per PRN order.
[2017-01-06 08:22] VITALS: BP 125/82
[2017-01-06] MEDS: risperiDONE 0.25 MG TABLET. PO SCH ×2 (08:23→20:05)
[2017-01-06] MEDS: ESCITALOPRAM 10 MG TABLET. PO SCH (08:24)
[2017-01-06] MEDS: METOPROLOL TART IMMED RELEASE 25 MG TABLET PO SCH ×2 (08:24→20:07)
[2017-01-06] MEDS: hydrOXYzine PAMOATE 25 MG CAPSULE PO SCH ×2 (08:24→20:06)
[2017-01-06] MEDS: DIVALPROEX 125 MG CAP.SPRINK PO SCH ×2 (08:24→20:06)
[2017-01-06] MEDS: BACLOFEN 10 MG TABLET PO SCH ×2 (08:24→20:06)
[2017-01-06] MEDS: SENNOSIDES/DOCUSATE 8.6/50MG TABLET. PO SCH ×2 (08:24→20:06)
[2017-01-06] MEDS: FLECAINIDE 50 MG TABLET. PO SCH ×2 (08:25→20:09)
--- NOTE | 2017-01-06 08:52 | NUR ---
JEFFERY contacted [facility] for dc transport time. JEFFERY was told by a woman named Gunjan they would not be accepting Pt. for admit, per her DON. JEFFERY asked to speak w/Mira who is the contact this JEFFERY has been speaking with. A message was left for Mira for follow up. JEFFERY left message for Radha at [facility] to follow up on possible admit. JEFFERY faxed additional clinical notes, as requested, to [facility]. JEFFERY will continue to work on new placement for Pt.
--- NOTE | 2017-01-06 08:52 | NUR ---
Behavior Intervention Response and Plan: BIRP Note: Behavior: Assumed Care of patient, patient located in Dining Room at shift change. Patient exhibited the following behavior Calm, Appropriate, Cooperative. Brief assessment on rounds of vital signs, medication needs, lab studies, and pain. Treatment plan problems 1 and 2. Intervention: Patient assessed and the following interventions initiated safety checks 15 Minute Checks Cognitive Assessment , Head to toe Assessment , Medications. Response: After interactions and interventions patient responded in the following manner, Calm , Compliant ,Cooperative. Continue to assess behaviors and condition will continue to monitor throughout the shift as needed. 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 Continue to assess patient for changes in above assessment. Monitor for medication needs, pain, and safety concerns. Hourly rounding performed to ensure safe environment.
--- NOTE | 2017-01-06 10:30 | NUR ---
THERAPEUTIC RECREATION GROUP NOTE TITLE :Music Bingo ACTIVITY : Music GOAL : Increase socialization, elevate mood, stimulate memory DURATION : 60 minutes RESPONSE : Full participation. Pt. stayed with the group the entire time. She sang along with songs, reminisced about the music and her family, and chose a prize when she won. She needed assistance putting chips over the songs on her card.
--- NOTE | 2017-01-06 10:51 | NUR ---
JEFFERY received follow up call from Mira at [facility] regarding admit. JEFFERY shared the discussion earlier this am cesar/Gunjan who reported the facility decided not to accept PT. Mira reported there was a disagreement in nursing opinions currently and she was in communication w/[employer]por[employer] to get Pt. approved for admit. To help further this process, Mira requested a note or regulation stating the reason for 15 minute checks. JEFFERY faxed updated clinical notes and regulations to [facility].
--- NOTE | 2017-01-06 13:05 | NUR ---
Patient very tearful during lunch. Stating she "wants to go home". Comforted and spent time 1:1, patient less tearful. Will continue to monitor.
--- NOTE | 2017-01-06 14:30 | NUR ---
SW left message for PT's Guardian, Jenn Man regarding placement options.
--- NOTE | 2017-01-06 14:30 | NUR ---
Placement Follow up: [facility] (NO), [facility] (NO), [facility] (NO), [facility] (NO), [facility] (NO), [facility] (NO), [facility] (NO). Tevin will contact this SW in a few days regarding possible bed openings. PT. has been accepted to [facility] in [place] and possibly to [facility]. JEFFERY will discuss these options w/the court Appt. Guardian. JEFFERY sent additional notes to [facility] and returned a phone call Liat Montiel.
--- NOTE | 2017-01-06 14:45 | NUR ---
THERAPEUTIC RECREATION GROUP NOTE TITLE :Coloring stars ACTIVITY : Arts and Crafts GOAL : Reduce stress, anxiety. Increase creativity and fine motor functioning DURATION : 60 minutes RESPONSE : Minimal participation. Pt. sat with the group for the first half of the session. She colored two stars minimally. She appeared to be upset most of the session.
[2017-01-06 16:11] VITALS: BP 129/76
[2017-01-06] MEDS: traZODone 50 MG TABLET. PO SCH (20:06)
[2017-01-06] MEDS: MIRTAZAPINE 7.5 MG TABLET. PO SCH (20:06)
--- NOTE | 2017-01-06 20:30 | PDOC ---
Exam Cheng Demential Exam: Cheng Note: Please also refer to the separate dictated note~for this date of service dictated separately.~Patient seen individually. Discussed the patient with Nursing staff reviewed the chart.~Reviewed interim history and current functioning. Reviewed vital signs,~Labs/ Radiology~and current medications noted below. Continue current treatment with the changes noted in the dictated addendum note Assessment: Vital Signs: Vital Signs Date Time Temp Pulse Resp B/P (MAP) Pulse Ox O2 Delivery O2 Flow Rate FiO2 01/06/17 20:09 60 120/70 01/06/17 16:11 97.5 18 95 Room Air I&O Intake and Output 01/06/17 07:00 Intake Total 1080 ml Balance 1080 ml Intake Oral 1080 ml # Voids 1 Current Medications: Meds: Current Medications Acetaminophen (Tylenol) 650 mg PRN Q6HRS PRN PO PAIN / TEMP Last administered on 12/28/16 02:53; Start 12/18/16 at 12:30 Multi-Ingredient Ointment (Analgesic [place]) 1 [place] PRN QID PRN TP MUSCLE PAIN; Start 12/18/16 at 12:30 Al Hydroxide/Mg Hydroxide (Mylanta Plus Xs) 15 ml PRN AFTMEALHC PRN PO DYSPEPSIA; Start 12/18/16 at 12:30 Magnesium Hydroxide (Milk Of Magnesia) 2,400 mg PRN QHS PRN PO CONSTIPATION Last administered on 01/02/17 15:30; Start 12/18/16 at 12:30 Hydroxyzine Pamoate (Vistaril) 25 mg BID PO Last administered on 01/06/17 20: 06; Start 12/18/16 at 21:00 Risperidone (RisperDAL) 0.25 mg PRN Q12HR PRN PO ANXIETY / AGITATION Last administered on 01/06/17 04:58; Start 12/18/16 at 13:30 Topiramate (Topamax) 12.5 mg BID PO Last administered on 12/23/16 08:45; Start 12/18/16 at 21:00; Stop 12/23/16 at 17:47; Status DC Divalproex Sodium (Depakote Er) 500 mg DAILY PO ; Start 12/19/16 at 09:00; Stop 12/19/16 at 09:00; Status DC Albuterol Sulfate (Ventolin) 2.5 mg PRN Q4HRS PRN NEB SHORTNESS OF BREATH; Start 12/18/16 at 13:45 Acetaminophen/ Aspirin/Caffeine (Excedrin Migraine) 1 tab PRN Q6HRS PRN PO HEADACHE; Start 12/18/16 at 13:45 Baclofen (Lioresal) 10 mg BID PO Last administered on 01/06/17 20:06; Start at 21:00 Ergocalciferol (Vitamin D2) 50,000 unit QMTH PO ; Start 12/21/16 at 16:00; Stop 12/21/16 at 16:00; Status DC Metoprolol Tartrate (Lopressor) 25 mg BID PO Last administered on 01/06/17 08: 24; Start 12/18/16 at 21:00 Polyethylene Glycol (miraLAX) 17 gm PRN Q12HR PRN PO CONSTIPATION Last administered on 12/20/16 17:34; Start 12/18/16 at 13:45 Senna/Docusate Sodium (Senna Plus) 1 tab Q12HR PO Last administered on 20:06; Start 12/18/16 at 21:00 Tramadol HCl (Ultram) 50 mg PRN Q6HRS PRN PO PAIN Last administered on 20:39; Start 12/18/16 at 13:45 Flecainide Acetate (Tambocor) 50 mg Q12HR PO Last administered on 01/06/17 20: 09; Start 12/18/16 at 21:00 Risperidone (RisperDAL) 0.125 mg BID PO Last administered on 01/06/17 20:05; Start 12/18/16 at 21:00 Divalproex Sodium (Depakote Sprinkles) 250 mg BID PO Last administered on 09:55; Start 12/18/16 at 21:00; Stop 12/21/16 at 12:37; Status DC Ergocalciferol (Vitamin D2) 50,000 unit Q2WKS PO Last administered on 09:32; Start 12/21/16 at 16:00 Escitalopram Oxalate (Lexapro) 5 mg DAILY PO Last administered on 12/22/16 07: 50; Start 12/20/16 at 09:00; Stop 12/22/16 at 16:47; Status DC Divalproex Sodium (Depakote Sprinkles) 375 mg BID PO Last administered on 08:46; Start 12/21/16 at 21:00; Stop 12/23/16 at 16:23; Status DC Escitalopram Oxalate (Lexapro) 10 mg DAILY PO Last administered on 01/06/17 08 :24; Start 12/23/16 at 09:00 Divalproex Sodium (Depakote Sprinkles) 500 mg BID PO Last administered on 20:06; Start 12/23/16 at 21:00 Mirtazapine (Remeron) 7.5 mg QHS PO Last administered on 12/26/16 21:58; Start 12/23/16 at 21:00; Stop 12/27/16 at 18:49; Status DC Mirtazapine (Remeron) 15 mg QHS PO Last administered on 01/06/17 20:06; Start 12/27/16 at 21:00 Trazodone HCl (Desyrel) 50 mg QHS PO Last administered on 01/06/17 20:06; Start 12/27/16 at 21:00 Active Scripts Active Reported Depakote Sprinkle (Divalproex Sodium) 125 Mg Cap.sprink 500 Mg PO BID Trazodone Hcl 50 Mg Tablet 50 Mg PO QHS Risperidone 0.5 Mg Tablet 0.125 Mg PO BID Mirtazapine 15 Mg Tablet 15 Mg PO QHS Analgesic [place] (Methyl Salicylate/Menthol) 28 Gm Oint...g. 1 [place] TP PRN QID PRN Milk Of Magnesia (Magnesium Hydroxide) 2,400 Mg/10 Ml Oral.susp 2,400 Mg PO PRN QHS PRN Mag-Al Plus Xs Suspension (Mag Hydrox/Al Hydrox/Simeth) 30 Ml Oral.susp 15 Ml PO PRN AFTMEALHC PRN Escitalopram Oxalate 10 Mg Tablet 10 Mg PO DAILY Tylenol (Acetaminophen) 325 Mg Tablet 650 Mg PO PRN Q6HRS PRN Albuterol Sulfate Neb Soln (Albuterol Sulfate) 2.5 Mg/3 Ml Vial.neb 1 Vial NEB PRN Q4HRS PRN Tramadol Hcl (Tramadol HCl) 50 Mg Tablet 50 Mg PO PRN Q6HRS PRN Senokot-S Tablet (Sennosides/Docusate Sodium) 1 Each Tablet 1 Tab PO Q12HR Risperidone 0.5 Mg Tablet 0.25 Mg PO PRN Q12HR PRN Metoprolol Tartrate 25 Mg Tablet 25 Tab PO BID Hydroxyzine Pamoate 25 Mg Capsule 25 Mg PO BID Glycolax (Polyethylene Glycol 3350) 119 Gm Powder 17 Gm PO PRN Q12HR PRN Flecainide Acetate 100 Mg Tablet 50 Mg PO Q12HR Excedrin Migraine Caplet (Aspirin/Acetaminophen/Caffeine) 1 Each Tablet 1 Each PO PRN Q6HRS PRN Vitamin D2 (Ergocalciferol (Vitamin D2)) 50,000 Unit Capsule 50,000 Unit PO Q2WKS Baclofen 10 Mg Tablet 10 Mg PO BID Diagnosis: Problems: (1) Anxiety disorder (2) Impulse control disorder (3) Major depressive disorder, recurrent episode (4) 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
--- NOTE | 2017-01-06 21:15 | NUR ---
Behavior Intervention Response and Plan: BIRP Note: Behavior: Assumed Care of patient, patient located in Patient Room at shift change. Patient exhibited the following behavior Anxious, Compliant, Cooperative. Brief assessment on rounds of vital signs, medication needs, lab studies, and pain. Treatment plan problems 1 and 2. Intervention: Patient assessed and the following interventions initiated safety checks 15 Minute Checks Cognitive Assessment , Head to toe Assessment , Medications, oral hydration, and Nutrition. Response: After interactions and interventions patient responded in the following manner, Calm , Compliant ,Cooperative. Continue to assess behaviors and condition will continue to monitor throughout the shift as needed. Plan: Continue to monitor Master Treatment Plan for patient's progress toward short term goals of Decreased Agitation, Decreased Anxiety, detention goals to return to previous living setting vs placement. Continue to assess patient for changes in above assessment. Monitor for medication needs, pain, and safety concerns. Hourly rounding performed to ensure safe environment.
--- NOTE | 2017-01-07 01:21 | PN ---
DATE: 01/06/2017 PSYCHIATRIC PROGRESS NOTE This note covers elements not covered in my initial note of 01/06/2017. SUBJECTIVE: The patient was seen individually evening of 01/06/2017. She received Risperdal p.r.n. early this morning due to restlessness, paranoia, tearful this evening because she was not discharged. The patient did talk to ____ was calmer. REVIEW OF SYSTEMS: Ambulation impaired and her movements consistent with [place]'s. No CV, , pulmonary, eye system symptoms on review. MENTAL STATUS EXAM: Oriented to herself. Insight, judgment, recent and remote memory, attention, concentration, fund of knowledge poor, consistent with her diagnosis mentioned in my initial note. Valproic acid level is 74. PLAN: Continue psychotropics mentioned in my initial note. Adjust further as clinically indicated. MAN Tonny AGGARWAL MD DR: CECI/evert JOB#: [id number] / [id number]
[2017-01-07 06:24] VITALS: BP 138/78
[2017-01-07] MEDS: METOPROLOL TART IMMED RELEASE 25 MG TABLET PO SCH ×2 (08:46→19:50)
[2017-01-07] MEDS: BACLOFEN 10 MG TABLET PO SCH ×2 (08:46→19:51)
[2017-01-07] MEDS: FLECAINIDE 50 MG TABLET. PO SCH ×2 (08:46→19:52)
[2017-01-07] MEDS: hydrOXYzine PAMOATE 25 MG CAPSULE PO SCH ×2 (08:47→19:51)
[2017-01-07] MEDS: ESCITALOPRAM 10 MG TABLET. PO SCH (08:47)
[2017-01-07] MEDS: SENNOSIDES/DOCUSATE 8.6/50MG TABLET. PO SCH ×2 (08:47→19:51)
[2017-01-07] MEDS: DIVALPROEX 125 MG CAP.SPRINK PO SCH ×2 (08:47→19:51)
[2017-01-07] MEDS: risperiDONE 0.25 MG TABLET. PO SCH ×2 (08:47→19:50)
--- NOTE | 2017-01-07 11:23 | NUR ---
Behavior Intervention Response and Plan: BIRP Note: Behavior: Assumed Care of patient, patient located in Patient Room at shift change. Patient exhibited the following behavior Wandering, Cooperative, Withdrawn. Brief assessment on rounds of vital signs, medication needs, lab studies, and pain. Treatment plan problems 1-2. Intervention: Patient assessed and the following interventions initiated safety checks 15 Minute Checks Personal Alarm in place , Cognitive Assessment , Head to toe Assessment. Response: After interactions and interventions patient responded in the following manner, Cooperative , Withdrawn ,Anxious. Continue to assess behaviors and condition will continue to monitor throughout the shift as needed. 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 Continue to assess patient for changes in above assessment. Monitor for medication needs, pain, and safety concerns. Hourly rounding performed to ensure safe environment.
--- NOTE | 2017-01-07 12:54 | NUR ---
JEFFERY had [facility] pt. for possible admit. Facility will follow up w/this JEFFERY on Wednesday.
--- NOTE | 2017-01-07 14:15 | NUR ---
THERAPEUTIC RECREATION GROUP NOTE TITLE :Radio Hour: [employer] Comedy Show ACTIVITY : Cognitive stimulation GOAL : Maintain or improve cognitive functioning, memory, imagination DURATION : 45 Minutes RESPONSE : Minimal participation. Pt. sat with the group the entire time. She met with social worker masters during the session and became tearful. She stayed with the group after her meeting and rested her eyes. Before the radio show, Pt. tossed a sandbag shaped as a fish into an inflatable shark mouth. She needed no prompting and wanted to play longer.
--- NOTE | 2017-01-07 14:45 | NUR ---
JEFFERY talked w/Pt. while sitting in the day room. JEFFERY asked about Pt. receiving calls from Mayco who is her Significant Other's brother. Pt. stated when Mayco calls, he allows Immanuel to speak to Pt. on the phone. At this time, Mayco is not allowed to speak w/Pt. due to her becoming agitated and upset. JEFFERY processed Pt. being upset yesterday and Pt. stated she was upset she was not returning home as initially told. JEFFERY discussed Pt. not being allowed to return to home per court orders due to Pt's Significant Other providing Methamphetamine/Amphetamines to Pt.. Pt. reported being given Adderall to help control her tremors. Pt. stated the prescription for Adderall is Immanuel's friend's prescription. JEFFERY validated Pt. becoming upset over not being able to return to reside w/Immanuel as PT. stated she loves Immanuel. SW attempted to join w/Pt's Social Work roots and process from the perspective of keeping her safe. The decision is ultimately up to a movement assembly final inspector and it is this JEFFERY's job to ensure it is followed thru. JEFFERY stated the circumstances could change, but for right now, the Pt. would need to transition to a LTCF. Pt. stated she understood, but was tearful. JEFFERY left another message for PT's Court Appt. Sweep Press Operator, Jenn Man.
[2017-01-07 16:55] VITALS: BP 126/91
[2017-01-07] MEDS: traZODone 50 MG TABLET. PO SCH (19:50)
[2017-01-07] MEDS: MIRTAZAPINE 7.5 MG TABLET. PO SCH (19:51)
--- NOTE | 2017-01-07 19:57 | PDOC ---
Exam Cheng Demential Exam: Cheng Note: Please also refer to the separate dictated note~for this date of service dictated separately.~Patient seen individually. Discussed the patient with Nursing staff reviewed the chart.~Reviewed interim history and current functioning. Reviewed vital signs,~Labs/ Radiology~and current medications noted below. Continue current treatment with the changes noted in the dictated addendum note Assessment: Vital Signs: Vital Signs Date Time Temp Pulse Resp B/P (MAP) Pulse Ox O2 Delivery O2 Flow Rate FiO2 01/07/17 19:52 66 126/91 01/07/17 16:55 98.1 16 93 01/06/17 16:11 Room Air I&O Intake and Output 01/07/17 07:00 Intake Total 1200 ml Balance 1200 ml Intake Oral 1200 ml Current Medications: Meds: Current Medications Acetaminophen (Tylenol) 650 mg PRN Q6HRS PRN PO PAIN / TEMP Last administered on 12/28/16 02:53; Start 12/18/16 at 12:30 Multi-Ingredient Ointment (Analgesic [place]) 1 dominga PRN QID PRN TP MUSCLE PAIN; Start 12/18/16 at 12:30 Al Hydroxide/Mg Hydroxide (Mylanta Plus Xs) 15 ml PRN AFTMEALHC PRN PO DYSPEPSIA; Start 12/18/16 at 12:30 Magnesium Hydroxide (Milk Of Magnesia) 2,400 mg PRN QHS PRN PO CONSTIPATION Last administered on 01/02/17 15:30; Start 12/18/16 at 12:30 Hydroxyzine Pamoate (Vistaril) 25 mg BID PO Last administered on 01/07/17 19: 51; Start 12/18/16 at 21:00 Risperidone (RisperDAL) 0.25 mg PRN Q12HR PRN PO ANXIETY / AGITATION Last administered on 01/06/17 04:58; Start 12/18/16 at 13:30 Topiramate (Topamax) 12.5 mg BID PO Last administered on 12/23/16 08:45; Start 12/18/16 at 21:00; Stop 12/23/16 at 17:47; Status DC Divalproex Sodium (Depakote Er) 500 mg DAILY PO ; Start 12/19/16 at 09:00; Stop 12/19/16 at 09:00; Status DC Albuterol Sulfate (Ventolin) 2.5 mg PRN Q4HRS PRN NEB SHORTNESS OF BREATH; Start 12/18/16 at 13:45 Acetaminophen/ Aspirin/Caffeine (Excedrin Migraine) 1 tab PRN Q6HRS PRN PO HEADACHE; Start 12/18/16 at 13:45 Baclofen (Lioresal) 10 mg BID PO Last administered on 01/07/17 19:51; Start at 21:00 Ergocalciferol (Vitamin D2) 50,000 unit QMTH PO ; Start 12/21/16 at 16:00; Stop 12/21/16 at 16:00; Status DC Metoprolol Tartrate (Lopressor) 25 mg BID PO Last administered on 01/07/17 19: 50; Start 12/18/16 at 21:00 Polyethylene Glycol (miraLAX) 17 gm PRN Q12HR PRN PO CONSTIPATION Last administered on 12/20/16 17:34; Start 12/18/16 at 13:45 Senna/Docusate Sodium (Senna Plus) 1 tab Q12HR PO Last administered on 19:51; Start 12/18/16 at 21:00 Tramadol HCl (Ultram) 50 mg PRN Q6HRS PRN PO PAIN Last administered on 20:39; Start 12/18/16 at 13:45 Flecainide Acetate (Tambocor) 50 mg Q12HR PO Last administered on 01/07/17 19: 52; Start 12/18/16 at 21:00 Risperidone (RisperDAL) 0.125 mg BID PO Last administered on 01/07/17 19:50; Start 12/18/16 at 21:00 Divalproex Sodium (Depakote Sprinkles) 250 mg BID PO Last administered on 09:55; Start 12/18/16 at 21:00; Stop 12/21/16 at 12:37; Status DC Ergocalciferol (Vitamin D2) 50,000 unit Q2WKS PO Last administered on 09:32; Start 12/21/16 at 16:00 Escitalopram Oxalate (Lexapro) 5 mg DAILY PO Last administered on 12/22/16 07: 50; Start 12/20/16 at 09:00; Stop 12/22/16 at 16:47; Status DC Divalproex Sodium (Depakote Sprinkles) 375 mg BID PO Last administered on 08:46; Start 12/21/16 at 21:00; Stop 12/23/16 at 16:23; Status DC Escitalopram Oxalate (Lexapro) 10 mg DAILY PO Last administered on 01/07/17 08 :47; Start 12/23/16 at 09:00 Divalproex Sodium (Depakote Sprinkles) 500 mg BID PO Last administered on 19:51; Start 12/23/16 at 21:00 Mirtazapine (Remeron) 7.5 mg QHS PO Last administered on 12/26/16 21:58; Start 12/23/16 at 21:00; Stop 12/27/16 at 18:49; Status DC Mirtazapine (Remeron) 15 mg QHS PO Last administered on 01/07/17 19:51; Start 12/27/16 at 21:00 Trazodone HCl (Desyrel) 50 mg QHS PO Last administered on 01/07/17 19:50; Start 12/27/16 at 21:00 Active Scripts Active Reported Depakote Sprinkle (Divalproex Sodium) 125 Mg Cap.sprink 500 Mg PO BID Trazodone Hcl 50 Mg Tablet 50 Mg PO QHS Risperidone 0.5 Mg Tablet 0.125 Mg PO BID Mirtazapine 15 Mg Tablet 15 Mg PO QHS Analgesic [place] (Methyl Salicylate/Menthol) 28 Gm Oint...g. 1 [place] TP PRN QID PRN Milk Of Magnesia (Magnesium Hydroxide) 2,400 Mg/10 Ml Oral.susp 2,400 Mg PO PRN QHS PRN Mag-Al Plus Xs Suspension (Mag Hydrox/Al Hydrox/Simeth) 30 Ml Oral.susp 15 Ml PO PRN AFTMEALHC PRN Escitalopram Oxalate 10 Mg Tablet 10 Mg PO DAILY Tylenol (Acetaminophen) 325 Mg Tablet 650 Mg PO PRN Q6HRS PRN Albuterol Sulfate Neb Soln (Albuterol Sulfate) 2.5 Mg/3 Ml Vial.neb 1 Vial NEB PRN Q4HRS PRN Tramadol Hcl (Tramadol HCl) 50 Mg Tablet 50 Mg PO PRN Q6HRS PRN Senokot-S Tablet (Sennosides/Docusate Sodium) 1 Each Tablet 1 Tab PO Q12HR Risperidone 0.5 Mg Tablet 0.25 Mg PO PRN Q12HR PRN Metoprolol Tartrate 25 Mg Tablet 25 Tab PO BID Hydroxyzine Pamoate 25 Mg Capsule 25 Mg PO BID Glycolax (Polyethylene Glycol 3350) 119 Gm Powder 17 Gm PO PRN Q12HR PRN Flecainide Acetate 100 Mg Tablet 50 Mg PO Q12HR Excedrin Migraine Caplet (Aspirin/Acetaminophen/Caffeine) 1 Each Tablet 1 Each PO PRN Q6HRS PRN Vitamin D2 (Ergocalciferol (Vitamin D2)) 50,000 Unit Capsule 50,000 Unit PO Q2WKS Baclofen 10 Mg Tablet 10 Mg PO BID Diagnosis: Problems: (1) Anxiety disorder (2) Impulse control disorder (3) Major depressive disorder, recurrent episode (4) 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
--- NOTE | 2017-01-07 22:01 | NUR ---
Behavior Intervention Response and Plan: BIRP Note: Behavior: Assumed Care of patient, patient located in Patient Room at shift change. Patient exhibited the following behavior Calm, Compliant, Cooperative. Brief assessment on rounds of vital signs, medication needs, lab studies, and pain. Treatment plan problems Dementia with Bd and Fall Risk. Intervention: Patient assessed and the following interventions initiated safety checks 15 Minute Checks Cognitive Assessment , Head to toe Assessment , Medications. Response: After interactions and interventions patient responded in the following manner, Calm , Compliant ,Cooperative. Continue to assess behaviors and condition will continue to monitor throughout the shift as needed. 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 Continue to assess patient for changes in above assessment. Monitor for medication needs, pain, and safety concerns. Hourly rounding performed to ensure safe environment.
[2017-01-08 06:06] VITALS: BP 130/76
[2017-01-08] MEDS: SENNOSIDES/DOCUSATE 8.6/50MG TABLET. PO SCH ×2 (09:02→19:49)
[2017-01-08] MEDS: hydrOXYzine PAMOATE 25 MG CAPSULE PO SCH ×2 (09:02→19:50)
[2017-01-08] MEDS: risperiDONE 0.25 MG TABLET. PO SCH ×2 (09:02→19:50)
[2017-01-08] MEDS: BACLOFEN 10 MG TABLET PO SCH ×2 (09:02→19:50)
[2017-01-08] MEDS: METOPROLOL TART IMMED RELEASE 25 MG TABLET PO SCH ×2 (09:02→19:50)
[2017-01-08] MEDS: DIVALPROEX 125 MG CAP.SPRINK PO SCH ×2 (09:03→19:49)
[2017-01-08] MEDS: FLECAINIDE 50 MG TABLET. PO SCH ×2 (09:03→19:52)
[2017-01-08] MEDS: ESCITALOPRAM 10 MG TABLET. PO SCH (09:03)
[2017-01-08] MEDS: MAGNESIUM HYDROXIDE 2,400 MG/30 ML ORAL.SUSP. PO PRN (09:10)
--- NOTE | 2017-01-08 09:15 | NUR ---
THERAPEUTIC RECREATION GROUP NOTE TITLE :Social Hour: Pool Noodles/ Balloon, Get to know you questions, News Headlines ACTIVITY : Activities and Games GOAL : Increase alertness/focus, decrease stress DURATION : 60 Minutes RESPONSE : Full participation with the balloon and noodles, after joining late. She needed prompting when the balloon was headed to her but she was quick to engage. She did not participate in anything else that hour.
--- NOTE | 2017-01-08 11:21 | NUR ---
Behavior Intervention Response and Plan: BIRP Note: Behavior: Assumed Care of patient, patient located in Dining Room at shift change. Patient exhibited the following behavior Withdrawn, Drowsy, Compliant. Brief assessment on rounds of vital signs, medication needs, lab studies, and pain. Treatment plan problems 1-2. Intervention: Patient assessed and the following interventions initiated safety checks 15 Minute Checks Personal Alarm in place , Cognitive Assessment , Head to toe Assessment. Response: After interactions and interventions patient responded in the following manner, Compliant , Cooperative ,Drowsy. Continue to assess behaviors and condition will continue to monitor throughout the shift as needed. Plan: Continue to monitor Master Treatment Plan for patient's progress toward short term goals of Decreased Anxiety, Improved Mood, laborer marine terminal goals to return to previous living setting vs placement. Continue to assess patient for changes in above assessment. Monitor for medication needs, pain, and safety concerns. Hourly rounding performed to ensure safe environment.
--- NOTE | 2017-01-08 12:35 | NUR ---
JEFFERY received call from Neyda at [facility] regarding acceptance of Pt. for new placement on Wednesday. JEFFERY left message for Jenn Man, Guardian, requesting urgency for her to return a call to this SW regarding new placement.
--- NOTE | 2017-01-08 13:47 | NUR ---
JEFFERY received return phone call from Pt's Guardian, Jenn regarding new placement at [facility]. JEFFERY provided contact information for Jenn to complete admission paperwork.
[2017-01-08 16:40] VITALS: BP 149/72
[2017-01-08] MEDS: MIRTAZAPINE 7.5 MG TABLET. PO SCH (19:49)
[2017-01-08] MEDS: traZODone 50 MG TABLET. PO SCH (19:50)
--- NOTE | 2017-01-08 20:09 | PDOC ---
Exam Cheng Demential Exam: Cheng Note: Please also refer to the separate dictated note~for this date of service dictated separately.~Patient seen individually. Discussed the patient with Nursing staff reviewed the chart.~Reviewed interim history and current functioning. Reviewed vital signs,~Labs/ Radiology~and current medications noted below. Continue current treatment with the changes noted in the dictated addendum note Assessment: Vital Signs: Vital Signs Date Time Temp Pulse Resp B/P (MAP) Pulse Ox O2 Delivery O2 Flow Rate FiO2 01/08/17 19:52 69 149/72 01/08/17 16:40 97.6 20 94 Room Air I&O Intake and Output 01/08/17 07:00 Intake Total 930 ml Balance 930 ml Intake Oral 930 ml Current Medications: Meds: Current Medications Acetaminophen (Tylenol) 650 mg PRN Q6HRS PRN PO PAIN / TEMP Last administered on 12/28/16 02:53; Start 12/18/16 at 12:30 Multi-Ingredient Ointment (Analgesic [place]) 1 dominga PRN QID PRN TP MUSCLE PAIN; Start 12/18/16 at 12:30 Al Hydroxide/Mg Hydroxide (Mylanta Plus Xs) 15 ml PRN AFTMEALHC PRN PO DYSPEPSIA; Start 12/18/16 at 12:30 Magnesium Hydroxide (Milk Of Magnesia) 2,400 mg PRN QHS PRN PO CONSTIPATION Last administered on 01/08/17 09:10; Start 12/18/16 at 12:30 Hydroxyzine Pamoate (Vistaril) 25 mg BID PO Last administered on 01/08/17 19: 50; Start 12/18/16 at 21:00 Risperidone (RisperDAL) 0.25 mg PRN Q12HR PRN PO ANXIETY / AGITATION Last administered on 01/06/17 04:58; Start 12/18/16 at 13:30 Topiramate (Topamax) 12.5 mg BID PO Last administered on 12/23/16 08:45; Start 12/18/16 at 21:00; Stop 12/23/16 at 17:47; Status DC Divalproex Sodium (Depakote Er) 500 mg DAILY PO ; Start 12/19/16 at 09:00; Stop 12/19/16 at 09:00; Status DC Albuterol Sulfate (Ventolin) 2.5 mg PRN Q4HRS PRN NEB SHORTNESS OF BREATH; Start 12/18/16 at 13:45 Acetaminophen/ Aspirin/Caffeine (Excedrin Migraine) 1 tab PRN Q6HRS PRN PO HEADACHE; Start 12/18/16 at 13:45 Baclofen (Lioresal) 10 mg BID PO Last administered on 01/08/17 19:50; Start at 21:00 Ergocalciferol (Vitamin D2) 50,000 unit QMTH PO ; Start 12/21/16 at 16:00; Stop 12/21/16 at 16:00; Status DC Metoprolol Tartrate (Lopressor) 25 mg BID PO Last administered on 01/08/17 19: 50; Start 12/18/16 at 21:00 Polyethylene Glycol (miraLAX) 17 gm PRN Q12HR PRN PO CONSTIPATION Last administered on 12/20/16 17:34; Start 12/18/16 at 13:45 Senna/Docusate Sodium (Senna Plus) 1 tab Q12HR PO Last administered on 19:49; Start 12/18/16 at 21:00 Tramadol HCl (Ultram) 50 mg PRN Q6HRS PRN PO PAIN Last administered on 20:39; Start 12/18/16 at 13:45 Flecainide Acetate (Tambocor) 50 mg Q12HR PO Last administered on 01/08/17 19: 52; Start 12/18/16 at 21:00 Risperidone (RisperDAL) 0.125 mg BID PO Last administered on 01/08/17 19:50; Start 12/18/16 at 21:00 Divalproex Sodium (Depakote Sprinkles) 250 mg BID PO Last administered on 09:55; Start 12/18/16 at 21:00; Stop 12/21/16 at 12:37; Status DC Ergocalciferol (Vitamin D2) 50,000 unit Q2WKS PO Last administered on 09:32; Start 12/21/16 at 16:00 Escitalopram Oxalate (Lexapro) 5 mg DAILY PO Last administered on 12/22/16 07: 50; Start 12/20/16 at 09:00; Stop 12/22/16 at 16:47; Status DC Divalproex Sodium (Depakote Sprinkles) 375 mg BID PO Last administered on 08:46; Start 12/21/16 at 21:00; Stop 12/23/16 at 16:23; Status DC Escitalopram Oxalate (Lexapro) 10 mg DAILY PO Last administered on 01/08/17 09 :03; Start 12/23/16 at 09:00 Divalproex Sodium (Depakote Sprinkles) 500 mg BID PO Last administered on 19:49; Start 12/23/16 at 21:00 Mirtazapine (Remeron) 7.5 mg QHS PO Last administered on 12/26/16 21:58; Start 12/23/16 at 21:00; Stop 12/27/16 at 18:49; Status DC Mirtazapine (Remeron) 15 mg QHS PO Last administered on 01/08/17 19:49; Start 12/27/16 at 21:00 Trazodone HCl (Desyrel) 50 mg QHS PO Last administered on 01/08/17 19:50; Start 12/27/16 at 21:00 Active Scripts Active Reported Depakote Sprinkle (Divalproex Sodium) 125 Mg Cap.sprink 500 Mg PO BID Trazodone Hcl 50 Mg Tablet 50 Mg PO QHS Risperidone 0.5 Mg Tablet 0.125 Mg PO BID Mirtazapine 15 Mg Tablet 15 Mg PO QHS Analgesic [place] (Methyl Salicylate/Menthol) 28 Gm Oint...g. 1 [place] TP PRN QID PRN Milk Of Magnesia (Magnesium Hydroxide) 2,400 Mg/10 Ml Oral.susp 2,400 Mg PO PRN QHS PRN Mag-Al Plus Xs Suspension (Mag Hydrox/Al Hydrox/Simeth) 30 Ml Oral.susp 15 Ml PO PRN AFTMEALHC PRN Escitalopram Oxalate 10 Mg Tablet 10 Mg PO DAILY Tylenol (Acetaminophen) 325 Mg Tablet 650 Mg PO PRN Q6HRS PRN Albuterol Sulfate Neb Soln (Albuterol Sulfate) 2.5 Mg/3 Ml Vial.neb 1 Vial NEB PRN Q4HRS PRN Tramadol Hcl (Tramadol HCl) 50 Mg Tablet 50 Mg PO PRN Q6HRS PRN Senokot-S Tablet (Sennosides/Docusate Sodium) 1 Each Tablet 1 Tab PO Q12HR Risperidone 0.5 Mg Tablet 0.25 Mg PO PRN Q12HR PRN Metoprolol Tartrate 25 Mg Tablet 25 Tab PO BID Hydroxyzine Pamoate 25 Mg Capsule 25 Mg PO BID Glycolax (Polyethylene Glycol 3350) 119 Gm Powder 17 Gm PO PRN Q12HR PRN Flecainide Acetate 100 Mg Tablet 50 Mg PO Q12HR Excedrin Migraine Caplet (Aspirin/Acetaminophen/Caffeine) 1 Each Tablet 1 Each PO PRN Q6HRS PRN Vitamin D2 (Ergocalciferol (Vitamin D2)) 50,000 Unit Capsule 50,000 Unit PO Q2WKS Baclofen 10 Mg Tablet 10 Mg PO BID Diagnosis: Problems: (1) Anxiety disorder (2) Impulse control disorder (3) Major depressive disorder, recurrent episode (4) 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
--- NOTE | 2017-01-08 22:13 | NUR ---
Behavior Intervention Response and Plan: BIRP Note: Behavior: Assumed Care of patient, patient located in Patient Room at shift change. Patient exhibited the following behavior Calm, Compliant, Cooperative. Brief assessment on rounds of vital signs, medication needs, lab studies, and pain. Treatment plan problems Dementia with Bd and Fall Risk. Intervention: Patient assessed and the following interventions initiated safety checks 15 Minute Checks Cognitive Assessment , Head to toe Assessment , Medications. Response: After interactions and interventions patient responded in the following manner, Calm , Compliant ,Cooperative. Continue to assess behaviors and condition will continue to monitor throughout the shift as needed. 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 Continue to assess patient for changes in above assessment. Monitor for medication needs, pain, and safety concerns. Hourly rounding performed to ensure safe environment.
--- NOTE | 2017-01-09 00:05 | PN ---
DATE: 01/07/2017 PSYCHIATRIC PROGRESS NOTE This is a late entry for 01/07/2017, covers elements not covered in my initial note. SUBJECTIVE: The patient was staffed at a treatment team meeting with the entire team the morning of 01/07/2017. Reviewed the patient's history, progress, current medications, discharge plans and transition plans per social service staff. Previous placement fell through, social service staff are looking for another placement. She is tearful at times, confused, but seems to brighten when talking about places she seems to recognize in the city she used to live in, which is [place], [place]. When I bring the different places up, she brightens, able to sustain a brief conversation about this. REVIEW OF SYSTEMS: Ambulation impaired, in a wheelchair. She has tremors consistent with [place]'s. No CV, , pulmonary, eye system symptoms on review. MENTAL STATUS EXAM: Oriented to herself. Insight, judgment, recent and remote memory, attention, concentration, fund of knowledge poor, consistent with her diagnosis. 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 Rest unchanged noted in my initial note. PLAN: Continue Depakote 500 mg b.i.d., hydroxyzine 25 mg b.i.d., Risperdal p.r.n. and scheduled 0.125 mg twice a day, Lexapro 10 mg a day, Remeron 15 mg at bedtime, trazodone p.r.n. Valproic acid level is therapeutic at 74. The patient's relative Mayco has been calling and talking to her, and social service staff will coordinate with the guardian whether this is permitted or not since there is a restriction on to have no contact with her. I will defer this to social service staff. TONEY AGGARWAL MD DR: CECI/evert JOB#: [id number] / [id number]
[2017-01-09 06:07] VITALS: BP 151/86
[2017-01-09 08:30] LABS: ALBUMIN 3.4 g/dL (3.4-5.0); CALCIUM 8.5 mg/dL (8.5-10.1); CREATININE 0.8 mg/dL (0.6-1.0); GFR 71.8; POTASSIUM 4.9 mmol/L (3.5-5.1); TOTAL BILIRUBIN 0.3 mg/dL (0.2-1.0); TOTAL PROTEIN 6.7 g/dL (6.4-8.2)
[2017-01-09 08:31] LABS: BASO % 1 % (0-3); EOS # 0.2 x10^3/uL (0.0-0.7); EOS % 2 % (0-3); HEMATOCRIT 42.8 % (36.0-47.0); HEMOGLOBIN 14.2 g/dL (12.0-15.5); LYMPH # 1.2 x10^3/uL (1.0-4.8); LYMPH % 13 % (24-48); MEAN CORPUSCULAR HEMOGLOBIN 29 pg (25-35); MEAN CORPUSCULAR HGB CONC 33 g/dL (31-37); MEAN CORPUSCULAR VOLUME 87 fL (79-100); MONO # 1.2 x10^3/uL (0.0-1.1); MONO % 13 % (0-9); NEUT # 6.5 x10^3uL (1.8-7.7); NEUT % 71 % (31-73); PLATELET COUNT 220 x10^3/uL (140-400); RED BLOOD COUNT 4.93 x10^6/uL (3.50-5.40); RED CELL DISTRIBUTION WIDTH 13.8 % (11.5-14.5); WHITE BLOOD COUNT 9.1 x10^3/uL (4.0-11.0)
[2017-01-09] MEDS: DIVALPROEX 125 MG CAP.SPRINK PO SCH ×2 (09:28→19:16)
[2017-01-09] MEDS: BACLOFEN 10 MG TABLET PO SCH ×2 (09:28→19:16)
[2017-01-09] MEDS: ESCITALOPRAM 10 MG TABLET. PO SCH (09:28)
[2017-01-09] MEDS: risperiDONE 0.25 MG TABLET. PO SCH ×2 (09:29→19:16)
[2017-01-09] MEDS: METOPROLOL TART IMMED RELEASE 25 MG TABLET PO SCH ×2 (09:29→19:20)
[2017-01-09] MEDS: SENNOSIDES/DOCUSATE 8.6/50MG TABLET. PO SCH ×2 (09:29→19:16)
[2017-01-09] MEDS: FLECAINIDE 50 MG TABLET. PO SCH ×2 (09:30→19:20)
[2017-01-09] MEDS: hydrOXYzine PAMOATE 25 MG CAPSULE PO SCH ×2 (09:32→19:17)
--- NOTE | 2017-01-09 11:16 | NUR ---
Behavior Intervention Response and Plan: BIRP Note: Behavior: Assumed Care of patient, patient located in Patient Room at shift change. Patient exhibited the following behavior Calm, Compliant, Cooperative, and confused. Brief assessment on rounds of vital signs, medication needs, lab studies, and pain. Treatment plan problems Dementia with Bd and Fall Risk. Intervention: Patient assessed and the following interventions initiated safety checks 15 Minute Checks Cognitive Assessment , Head to toe Assessment , Medications. Response: After interactions and interventions patient responded in the following manner, Calm , Compliant ,Cooperative, and confused. Continue to assess behaviors and condition will continue to monitor throughout the shift as needed. 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 Continue to assess patient for changes in above assessment. Monitor for medication needs, pain, and safety concerns. Hourly rounding performed to ensure safe environment.
[2017-01-09 15:42] VITALS: BP 112/48
[2017-01-09] MEDS: traZODone 50 MG TABLET. PO SCH (19:16)
[2017-01-09] MEDS: MIRTAZAPINE 7.5 MG TABLET. PO SCH (19:16)
[2017-01-09 19:21] VITALS: BP 121/86
--- NOTE | 2017-01-09 20:48 | PN ---
DATE: 01/08/2017 PSYCHIATRIC PROGRESS NOTE This is a late entry of 01/08/2017 cover elements not covered in my initial note. SUBJECTIVE: The patient remains somewhat confused, especially for recent events per nursing report. She is being tearful, anxious at times, dropped her here in the face and was trying to eat her meals through it per nursing report. REVIEW OF SYSTEMS: Ambulation impaired in a wheelchair and motor movements consistent with [place]'s. No CV, , pulmonary, eye system symptoms on review. Reliability poor. MENTAL STATUS EXAM: Oriented to herself. Insight, judgment, recent and remote memory, attention, concentration, fund of knowledge poor, consistent with her diagnosis. Remote memory better than recent. LABORATORY DATA: Reviewed. IMPRESSION: Unchanged from initial note major neurocognitive disorder secondary to [place]'s with delusion, depression, behavioral disturbance. Rest unchanged. PLAN: Continue psychotropics mentioned in my initial note. MAN Tonny AGGARWAL MD DR: CECI/evert JOB#: [id number] / [id number]
--- NOTE | 2017-01-09 22:11 | PDOC ---
Exam Cheng Demential Exam: Cheng Note: Please also refer to the separate dictated note~for this date of service dictated separately.~Patient seen individually. Discussed the patient with Nursing staff reviewed the chart.~Reviewed interim history and current functioning. Reviewed vital signs,~Labs/ Radiology~and current medications noted below. Continue current treatment with the changes noted in the dictated addendum note Assessment: Vital Signs: Vital Signs Date Time Temp Pulse Resp B/P (MAP) Pulse Ox O2 Delivery O2 Flow Rate FiO2 01/09/17 19:21 63 121/86 (98) 93 01/09/17 15:42 98.1 19 01/08/17 16:40 Room Air I&O Intake and Output 01/09/17 07:00 Intake Total 960 ml Balance 960 ml Intake Oral 960 ml # Bowel Movements 1 Labs: Laboratory Tests Test 01/09/17 07:55 White Blood Count 9.1 x10^3/uL (4.0-11.0) Red Blood Count 4.93 x10^6/uL (3.50-5.40) Hemoglobin 14.2 g/dL (12.0-15.5) Hematocrit 42.8 % (36.0-47.0) Mean Corpuscular Volume 87 fL (79-100) Mean Corpuscular Hemoglobin 29 pg (25-35) Mean Corpuscular Hemoglobin Concent 33 g/dL (31-37) Red Cell Distribution Width 13.8 % (11.5-14.5) Platelet Count 220 x10^3/uL (140-400) Neutrophils (%) (Auto) 71 % (31-73) Lymphocytes (%) (Auto) 13 % (24-48) L Monocytes (%) (Auto) 13 % (0-9) H Eosinophils (%) (Auto) 2 % (0-3) Basophils (%) (Auto) 1 % (0-3) Neutrophils # (Auto) 6.5 x10^3uL (1.8-7.7) Lymphocytes # (Auto) 1.2 x10^3/uL (1.0-4.8) Monocytes # (Auto) 1.2 x10^3/uL (0.0-1.1) H Eosinophils # (Auto) 0.2 x10^3/uL (0.0-0.7) Basophils # (Auto) 0.0 x10^3/uL (0.0-0.2) Sodium Level 140 mmol/L (136-145) Potassium Level 4.9 mmol/L (3.5-5.1) Chloride Level 103 mmol/L (98-107) Carbon Dioxide Level 31 mmol/L (21-32) Anion Gap 6 (6-14) Blood Urea Nitrogen 24 mg/dL (7-20) H Creatinine 0.8 mg/dL (0.6-1.0) Estimated GFR (Cockcroft-Gault) 71.8 BUN/Creatinine Ratio 30 (6-20) H Glucose Level 81 mg/dL (70-99) Calcium Level 8.5 mg/dL (8.5-10.1) Total Bilirubin 0.3 mg/dL (0.2-1.0) Aspartate Amino Transferase (AST) 11 U/L (15-37) L Alanine Aminotransferase (ALT) 20 U/L (14-59) Alkaline Phosphatase 72 U/L (46-116) Total Protein 6.7 g/dL (6.4-8.2) Albumin 3.4 g/dL (3.4-5.0) Albumin/Globulin Ratio 1.0 (1.0-1.7) Current Medications: Meds: Current Medications Acetaminophen (Tylenol) 650 mg PRN Q6HRS PRN PO PAIN / TEMP Last administered on 12/28/16 02:53; Start 12/18/16 at 12:30 Multi-Ingredient Ointment (Analgesic [place]) 1 [place] PRN QID PRN TP MUSCLE PAIN; Start 12/18/16 at 12:30 Al Hydroxide/Mg Hydroxide (Mylanta Plus Xs) 15 ml PRN AFTMEALHC PRN PO DYSPEPSIA; Start 12/18/16 at 12:30 Magnesium Hydroxide (Milk Of Magnesia) 2,400 mg PRN QHS PRN PO CONSTIPATION Last administered on 01/08/17 09:10; Start 12/18/16 at 12:30 Hydroxyzine Pamoate (Vistaril) 25 mg BID PO Last administered on 01/09/17 19: 17; Start 12/18/16 at 21:00 Risperidone (RisperDAL) 0.25 mg PRN Q12HR PRN PO ANXIETY / AGITATION Last administered on 01/06/17 04:58; Start 12/18/16 at 13:30 Topiramate (Topamax) 12.5 mg BID PO Last administered on 12/23/16 08:45; Start 12/18/16 at 21:00; Stop 12/23/16 at 17:47; Status DC Divalproex Sodium (Depakote Er) 500 mg DAILY PO ; Start 12/19/16 at 09:00; Stop 12/19/16 at 09:00; Status DC Albuterol Sulfate (Ventolin) 2.5 mg PRN Q4HRS PRN NEB SHORTNESS OF BREATH; Start 12/18/16 at 13:45 Acetaminophen/ Aspirin/Caffeine (Excedrin Migraine) 1 tab PRN Q6HRS PRN PO HEADACHE; Start 12/18/16 at 13:45 Baclofen (Lioresal) 10 mg BID PO Last administered on 01/09/17 19:16; Start at 21:00 Ergocalciferol (Vitamin D2) 50,000 unit QMTH PO ; Start 12/21/16 at 16:00; Stop 12/21/16 at 16:00; Status DC Metoprolol Tartrate (Lopressor) 25 mg BID PO Last administered on 01/09/17 19: 20; Start 12/18/16 at 21:00 Polyethylene Glycol (miraLAX) 17 gm PRN Q12HR PRN PO CONSTIPATION Last administered on 12/20/16 17:34; Start 12/18/16 at 13:45 Senna/Docusate Sodium (Senna Plus) 1 tab Q12HR PO Last administered on 19:16; Start 12/18/16 at 21:00 Tramadol HCl (Ultram) 50 mg PRN Q6HRS PRN PO PAIN Last administered on 20:39; Start 12/18/16 at 13:45 Flecainide Acetate (Tambocor) 50 mg Q12HR PO Last administered on 01/09/17 19: 20; Start 12/18/16 at 21:00 Risperidone (RisperDAL) 0.125 mg BID PO Last administered on 01/09/17 19:16; Start 12/18/16 at 21:00 Divalproex Sodium (Depakote Sprinkles) 250 mg BID PO Last administered on 09:55; Start 12/18/16 at 21:00; Stop 12/21/16 at 12:37; Status DC Ergocalciferol (Vitamin D2) 50,000 unit Q2WKS PO Last administered on 09:32; Start 12/21/16 at 16:00 Escitalopram Oxalate (Lexapro) 5 mg DAILY PO Last administered on 12/22/16 07: 50; Start 12/20/16 at 09:00; Stop 12/22/16 at 16:47; Status DC Divalproex Sodium (Depakote Sprinkles) 375 mg BID PO Last administered on 08:46; Start 12/21/16 at 21:00; Stop 12/23/16 at 16:23; Status DC Escitalopram Oxalate (Lexapro) 10 mg DAILY PO Last administered on 01/09/17 09 :28; Start 12/23/16 at 09:00 Divalproex Sodium (Depakote Sprinkles) 500 mg BID PO Last administered on 19:16; Start 12/23/16 at 21:00 Mirtazapine (Remeron) 7.5 mg QHS PO Last administered on 12/26/16 21:58; Start 12/23/16 at 21:00; Stop 12/27/16 at 18:49; Status DC Mirtazapine (Remeron) 15 mg QHS PO Last administered on 01/09/17 19:16; Start 12/27/16 at 21:00 Trazodone HCl (Desyrel) 50 mg QHS PO Last administered on 01/09/17 19:16; Start 12/27/16 at 21:00 Active Scripts Active Reported Depakote Sprinkle (Divalproex Sodium) 125 Mg Cap.sprink 500 Mg PO BID Trazodone Hcl 50 Mg Tablet 50 Mg PO QHS Risperidone 0.5 Mg Tablet 0.125 Mg PO BID Mirtazapine 15 Mg Tablet 15 Mg PO QHS Analgesic [place] (Methyl Salicylate/Menthol) 28 Gm Oint...g. 1 [place] TP PRN QID PRN Milk Of Magnesia (Magnesium Hydroxide) 2,400 Mg/10 Ml Oral.susp 2,400 Mg PO PRN QHS PRN Mag-Al Plus Xs Suspension (Mag Hydrox/Al Hydrox/Simeth) 30 Ml Oral.susp 15 Ml PO PRN AFTMEALHC PRN Escitalopram Oxalate 10 Mg Tablet 10 Mg PO DAILY Tylenol (Acetaminophen) 325 Mg Tablet 650 Mg PO PRN Q6HRS PRN Albuterol Sulfate Neb Soln (Albuterol Sulfate) 2.5 Mg/3 Ml Vial.neb 1 Vial NEB PRN Q4HRS PRN Tramadol Hcl (Tramadol HCl) 50 Mg Tablet 50 Mg PO PRN Q6HRS PRN Senokot-S Tablet (Sennosides/Docusate Sodium) 1 Each Tablet 1 Tab PO Q12HR Risperidone 0.5 Mg Tablet 0.25 Mg PO PRN Q12HR PRN Metoprolol Tartrate 25 Mg Tablet 25 Tab PO BID Hydroxyzine Pamoate 25 Mg Capsule 25 Mg PO BID Glycolax (Polyethylene Glycol 3350) 119 Gm Powder 17 Gm PO PRN Q12HR PRN Flecainide Acetate 100 Mg Tablet 50 Mg PO Q12HR Excedrin Migraine Caplet (Aspirin/Acetaminophen/Caffeine) 1 Each Tablet 1 Each PO PRN Q6HRS PRN Vitamin D2 (Ergocalciferol (Vitamin D2)) 50,000 Unit Capsule 50,000 Unit PO Q2WKS Baclofen 10 Mg Tablet 10 Mg PO BID Diagnosis: Problems: (1) Anxiety disorder (2) Impulse control disorder (3) Major depressive disorder, recurrent episode (4) 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
--- NOTE | 2017-01-09 23:45 | PN ---
DATE: 01/09/2017 PSYCHIATRIC PROGRESS NOTE SUBJECTIVE: This note covers elements not covered in my initial note. Overall, per nursing report, the patient is doing reasonably well. She gets a little anxious, restless, is confused, but as I met with her, she remembered as talking about [employer]is restaurant in [place], which we did yesterday. REVIEW OF SYSTEMS: Ambulation impaired in wheelchair, movements consistent with Tobias's. No CV, system symptoms on review. MENTAL STATUS EXAM: Oriented to herself. Insight, judgment, recent memory is impaired. Mood and affect is improved. LABORATORY DATA: Reviewed. IMPRESSION: Unchanged. PLAN: Continue psychotropics mentioned in my initial note. Valproic acid level therapeutic at 74. MAN Tonny AGGARWAL MD DR: CECI/evert JOB#: [id number] / [id number]
--- NOTE | 2017-01-09 23:45 | NUR ---
Behavior Intervention Response and Plan: BIRP Note: Behavior: Assumed Care of patient, patient located in Patient Room at shift change. Patient exhibited the following behavior Calm, Compliant, Cooperative. Brief assessment on rounds of vital signs, medication needs, lab studies, and pain. Treatment plan problems Dementia with Bd and Fall Risk. Intervention: Patient assessed and the following interventions initiated safety checks 15 Minute Checks Cognitive Assessment , Head to toe Assessment , Medications. Response: After interactions and interventions patient responded in the following manner, Calm , Compliant ,Cooperative. Continue to assess behaviors and condition will continue to monitor throughout the shift as needed. 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 Continue to assess patient for changes in above assessment. Monitor for medication needs, pain, and safety concerns. Hourly rounding performed to ensure safe environment.
[2017-01-10 06:04] VITALS: BP 144/85
[2017-01-10] MEDS: BACLOFEN 10 MG TABLET PO SCH ×2 (08:33→19:21)
[2017-01-10] MEDS: ESCITALOPRAM 10 MG TABLET. PO SCH (08:33)
[2017-01-10] MEDS: DIVALPROEX 125 MG CAP.SPRINK PO SCH ×2 (08:33→19:20)
[2017-01-10] MEDS: METOPROLOL TART IMMED RELEASE 25 MG TABLET PO SCH ×2 (08:35→19:20)
[2017-01-10] MEDS: risperiDONE 0.25 MG TABLET. PO SCH ×2 (08:42→19:20)
[2017-01-10] MEDS: SENNOSIDES/DOCUSATE 8.6/50MG TABLET. PO SCH ×2 (08:42→19:21)
[2017-01-10] MEDS: FLECAINIDE 50 MG TABLET. PO SCH ×2 (08:43→19:20)
[2017-01-10] MEDS: hydrOXYzine PAMOATE 25 MG CAPSULE PO SCH ×2 (08:43→19:21)
--- NOTE | 2017-01-10 09:44 | NUR ---
Behavior Intervention Response and Plan: BIRP Note: Behavior: Assumed Care of patient, patient located in Patient Room at shift change. Patient exhibited the following behavior Calm, Compliant, Cooperative, and confused. Brief assessment on rounds of vital signs, medication needs, lab studies, and pain. Treatment plan problems Dementia with Bd and Fall Risk. Intervention: Patient assessed and the following interventions initiated safety checks 15 Minute Checks Cognitive Assessment , Head to toe Assessment , Medications. Response: After interactions and interventions patient responded in the following manner, Calm, Compliant, Cooperative. Continue to assess behaviors and condition will continue to monitor throughout the shift as needed. Plan: Continue to monitor Master Treatment Plan for patient's progress toward short term goals of Decreased Agitation, Medication Compliance, supervisor intermediates goals to return to previous living setting vs placement. Continue to assess patient for changes in above assessment. Monitor for medication needs, pain, and safety concerns. Hourly rounding performed to ensure safe environment.
[2017-01-10] MEDS: traMADol 50 MG TABLET PO PRN (13:56)
[2017-01-10 15:54] VITALS: BP 120/82
[2017-01-10] MEDS: traZODone 50 MG TABLET. PO SCH (19:19)
[2017-01-10] MEDS: MIRTAZAPINE 7.5 MG TABLET. PO SCH (19:21)
--- NOTE | 2017-01-10 21:19 | PDOC ---
Exam Cheng Demential Exam: Cheng Note: Please also refer to the separate dictated note~for this date of service dictated separately.~Patient seen individually. Discussed the patient with Nursing staff reviewed the chart.~Reviewed interim history and current functioning. Reviewed vital signs,~Labs/ Radiology~and current medications noted below. Continue current treatment with the changes noted in the dictated addendum note Assessment: Vital Signs: Vital Signs Date Time Temp Pulse Resp B/P (MAP) Pulse Ox O2 Delivery O2 Flow Rate FiO2 01/10/17 19:20 66 120/82 01/10/17 15:54 98.5 16 99 01/08/17 16:40 Room Air I&O Intake and Output 01/10/17 07:00 Intake Total 960 ml Balance 960 ml Intake Oral 960 ml # Voids 2 Current Medications: Meds: Current Medications Acetaminophen (Tylenol) 650 mg PRN Q6HRS PRN PO PAIN / TEMP Last administered on 12/28/16 02:53; Start 12/18/16 at 12:30 Multi-Ingredient Ointment (Analgesic [place]) 1 dominga PRN QID PRN TP MUSCLE PAIN; Start 12/18/16 at 12:30 Al Hydroxide/Mg Hydroxide (Mylanta Plus Xs) 15 ml PRN AFTMEALHC PRN PO DYSPEPSIA; Start 12/18/16 at 12:30 Magnesium Hydroxide (Milk Of Magnesia) 2,400 mg PRN QHS PRN PO CONSTIPATION Last administered on 01/08/17 09:10; Start 12/18/16 at 12:30 Hydroxyzine Pamoate (Vistaril) 25 mg BID PO Last administered on 01/10/17 19: 21; Start 12/18/16 at 21:00 Risperidone (RisperDAL) 0.25 mg PRN Q12HR PRN PO ANXIETY / AGITATION Last administered on 01/06/17 04:58; Start 12/18/16 at 13:30 Topiramate (Topamax) 12.5 mg BID PO Last administered on 12/23/16 08:45; Start 12/18/16 at 21:00; Stop 12/23/16 at 17:47; Status DC Divalproex Sodium (Depakote Er) 500 mg DAILY PO ; Start 12/19/16 at 09:00; Stop 12/19/16 at 09:00; Status DC Albuterol Sulfate (Ventolin) 2.5 mg PRN Q4HRS PRN NEB SHORTNESS OF BREATH; Start 12/18/16 at 13:45 Acetaminophen/ Aspirin/Caffeine (Excedrin Migraine) 1 tab PRN Q6HRS PRN PO HEADACHE; Start 12/18/16 at 13:45 Baclofen (Lioresal) 10 mg BID PO Last administered on 01/10/17 19:21; Start at 21:00 Ergocalciferol (Vitamin D2) 50,000 unit QMTH PO ; Start 12/21/16 at 16:00; Stop 12/21/16 at 16:00; Status DC Metoprolol Tartrate (Lopressor) 25 mg BID PO Last administered on 01/10/17 19: 20; Start 12/18/16 at 21:00 Polyethylene Glycol (miraLAX) 17 gm PRN Q12HR PRN PO CONSTIPATION Last administered on 12/20/16 17:34; Start 12/18/16 at 13:45 Senna/Docusate Sodium (Senna Plus) 1 tab Q12HR PO Last administered on 19:21; Start 12/18/16 at 21:00 Tramadol HCl (Ultram) 50 mg PRN Q6HRS PRN PO PAIN Last administered on 13:56; Start 12/18/16 at 13:45 Flecainide Acetate (Tambocor) 50 mg Q12HR PO Last administered on 01/10/17 19: 20; Start 12/18/16 at 21:00 Risperidone (RisperDAL) 0.125 mg BID PO Last administered on 01/10/17 19:20; Start 12/18/16 at 21:00 Divalproex Sodium (Depakote Sprinkles) 250 mg BID PO Last administered on 09:55; Start 12/18/16 at 21:00; Stop 12/21/16 at 12:37; Status DC Ergocalciferol (Vitamin D2) 50,000 unit Q2WKS PO Last administered on 09:32; Start 12/21/16 at 16:00 Escitalopram Oxalate (Lexapro) 5 mg DAILY PO Last administered on 12/22/16 07: 50; Start 12/20/16 at 09:00; Stop 12/22/16 at 16:47; Status DC Divalproex Sodium (Depakote Sprinkles) 375 mg BID PO Last administered on 08:46; Start 12/21/16 at 21:00; Stop 12/23/16 at 16:23; Status DC Escitalopram Oxalate (Lexapro) 10 mg DAILY PO Last administered on 01/10/17 08 :33; Start 12/23/16 at 09:00 Divalproex Sodium (Depakote Sprinkles) 500 mg BID PO Last administered on 19:20; Start 12/23/16 at 21:00 Mirtazapine (Remeron) 7.5 mg QHS PO Last administered on 12/26/16 21:58; Start 12/23/16 at 21:00; Stop 12/27/16 at 18:49; Status DC Mirtazapine (Remeron) 15 mg QHS PO Last administered on 01/10/17 19:21; Start 12/27/16 at 21:00 Trazodone HCl (Desyrel) 50 mg QHS PO Last administered on 01/10/17 19:19; Start 12/27/16 at 21:00 Active Scripts Active Reported Depakote Sprinkle (Divalproex Sodium) 125 Mg Cap.sprink 500 Mg PO BID Trazodone Hcl 50 Mg Tablet 50 Mg PO QHS Risperidone 0.5 Mg Tablet 0.125 Mg PO BID Mirtazapine 15 Mg Tablet 15 Mg PO QHS Analgesic [place] (Methyl Salicylate/Menthol) 28 Gm Oint...g. 1 [place] TP PRN QID PRN Milk Of Magnesia (Magnesium Hydroxide) 2,400 Mg/10 Ml Oral.susp 2,400 Mg PO PRN QHS PRN Mag-Al Plus Xs Suspension (Mag Hydrox/Al Hydrox/Simeth) 30 Ml Oral.susp 15 Ml PO PRN AFTMEALHC PRN Escitalopram Oxalate 10 Mg Tablet 10 Mg PO DAILY Tylenol (Acetaminophen) 325 Mg Tablet 650 Mg PO PRN Q6HRS PRN Albuterol Sulfate Neb Soln (Albuterol Sulfate) 2.5 Mg/3 Ml Vial.neb 1 Vial NEB PRN Q4HRS PRN Tramadol Hcl (Tramadol HCl) 50 Mg Tablet 50 Mg PO PRN Q6HRS PRN Senokot-S Tablet (Sennosides/Docusate Sodium) 1 Each Tablet 1 Tab PO Q12HR Risperidone 0.5 Mg Tablet 0.25 Mg PO PRN Q12HR PRN Metoprolol Tartrate 25 Mg Tablet 25 Tab PO BID Hydroxyzine Pamoate 25 Mg Capsule 25 Mg PO BID Glycolax (Polyethylene Glycol 3350) 119 Gm Powder 17 Gm PO PRN Q12HR PRN Flecainide Acetate 100 Mg Tablet 50 Mg PO Q12HR Excedrin Migraine Caplet (Aspirin/Acetaminophen/Caffeine) 1 Each Tablet 1 Each PO PRN Q6HRS PRN Vitamin D2 (Ergocalciferol (Vitamin D2)) 50,000 Unit Capsule 50,000 Unit PO Q2WKS Baclofen 10 Mg Tablet 10 Mg PO BID Diagnosis: Problems: (1) Anxiety disorder (2) Impulse control disorder (3) Major depressive disorder, recurrent episode (4) 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
--- NOTE | 2017-01-11 00:14 | NUR ---
Behavior Intervention Response and Plan: BIRP Note: Behavior: Assumed Care of patient, patient located in Patient Room at shift change. Patient exhibited the following behavior Calm, Compliant, Cooperative. Brief assessment on rounds of vital signs, medication needs, lab studies, and pain. Treatment plan problems Dementia with Bd and Fall Risk. Intervention: Patient assessed and the following interventions initiated safety checks 15 Minute Checks Cognitive Assessment , Head to toe Assessment , Medications. Response: After interactions and interventions patient responded in the following manner, Calm , Compliant ,Cooperative. Continue to assess behaviors and condition will continue to monitor throughout the shift as needed. 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 Continue to assess patient for changes in above assessment. Monitor for medication needs, pain, and safety concerns. Hourly rounding performed to ensure safe environment.
--- NOTE | 2017-01-11 03:01 | PN ---
DATE: 01/10/2017 SUBJECTIVE: The patient was seen individually, discussed with nursing staff, reviewed the chart. I met with the patient this morning. She slept 5 hours, did well last night, anxious, agitated, talking fast, this morning redirected once the nursing staff intervened and asked her to slow down. REVIEW OF SYSTEMS: Ambulation impaired, in her wheelchair and [place]'s movements are evident. No CV, , pulmonary, eye, ENT system symptoms on review. MENTAL STATUS EXAM: Oriented to herself. Insight, judgment, recent memory is impaired. Remote is better. Language function intact. Attention span short. Mood and affect, lability is improved. LABORATORY DATA: Reviewed. 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 PLAN: I have reviewed current psychotropics. Drug interactions indicate risk/benefit ratio favors no changes at this time. Continue Depakote, hydroxyzine, Risperdal scheduled and p.r.n., Lexapro, Remeron and trazodone. Transition to long term in the next day or so. MAN Tonny AGGARWAL MD DR: CECI/evert JOB#: [id number] / [id number]
[2017-01-11 06:00] VITALS: BP 138/70
[2017-01-11] MEDS: risperiDONE 0.25 MG TABLET. PO SCH ×2 (08:09→19:13)
[2017-01-11] MEDS: DIVALPROEX 125 MG CAP.SPRINK PO SCH ×2 (08:09→19:14)
[2017-01-11] MEDS: METOPROLOL TART IMMED RELEASE 25 MG TABLET PO SCH ×2 (08:09→19:14)
[2017-01-11] MEDS: BACLOFEN 10 MG TABLET PO SCH ×2 (08:09→19:13)
[2017-01-11] MEDS: ESCITALOPRAM 10 MG TABLET. PO SCH (08:09)
[2017-01-11] MEDS: FLECAINIDE 50 MG TABLET. PO SCH ×2 (08:10→19:21)
[2017-01-11] MEDS: hydrOXYzine PAMOATE 25 MG CAPSULE PO SCH ×2 (08:10→19:14)
[2017-01-11] MEDS: SENNOSIDES/DOCUSATE 8.6/50MG TABLET. PO SCH ×2 (08:10→19:14)
[2017-01-11] MEDS: traMADol 50 MG TABLET PO PRN (08:10)
--- NOTE | 2017-01-11 09:54 | NUR ---
Behavior Intervention Response and Plan: BIRP Note: Behavior: Assumed Care of patient, patient located in Patient Room at shift change. Patient exhibited the following behavior Calm, Compliant, Cooperative, and able to take pills whole floated in pudding. Brief assessment on rounds of vital signs, medication needs, lab studies, and pain. Treatment plan problems Dementia with Bd and Fall Risk. Intervention: Patient assessed and the following interventions initiated safety checks 15 Minute Checks Cognitive Assessment , Head to toe Assessment , Medications. Response: After interactions and interventions patient responded in the following manner, Calm, Compliant, Cooperative. Continue to assess behaviors and condition will continue to monitor throughout the shift as needed. 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 Continue to assess patient for changes in above assessment. Monitor for medication needs, pain, and safety concerns. Hourly rounding performed to ensure safe environment.
[2017-01-11] MEDS ORDERED: HYDR25CA75 PO (15:04)
[2017-01-11 16:44] VITALS: BP 124/67
[2017-01-11] MEDS: traZODone 50 MG TABLET. PO SCH (19:13)
[2017-01-11] MEDS: MIRTAZAPINE 7.5 MG TABLET. PO SCH (19:14)
--- NOTE | 2017-01-11 20:22 | PDOC ---
Exam Cheng Demential Exam: Cheng Note: Please also refer to the separate dictated note~for this date of service dictated separately.~Patient seen individually. Discussed the patient with Nursing staff reviewed the chart.~Reviewed interim history and current functioning. Reviewed vital signs,~Labs/ Radiology~and current medications noted below. Continue current treatment with the changes noted in the dictated addendum note Assessment: Vital Signs: Vital Signs Date Time Temp Pulse Resp B/P (MAP) Pulse Ox O2 Delivery O2 Flow Rate FiO2 01/11/17 19:21 86 124/67 01/11/17 16:44 98.0 18 97 01/08/17 16:40 Room Air I&O Intake and Output 01/11/17 07:00 Intake Total 1560 ml Balance 1560 ml Intake Oral 1560 ml Current Medications: Meds: Current Medications Acetaminophen (Tylenol) 650 mg PRN Q6HRS PRN PO PAIN / TEMP Last administered on 12/28/16 02:53; Start 12/18/16 at 12:30 Multi-Ingredient Ointment (Analgesic [place]) 1 [place]inga PRN QID PRN TP MUSCLE PAIN; Start 12/18/16 at 12:30 Al Hydroxide/Mg Hydroxide (Mylanta Plus Xs) 15 ml PRN AFTMEALHC PRN PO DYSPEPSIA; Start 12/18/16 at 12:30 Magnesium Hydroxide (Milk Of Magnesia) 2,400 mg PRN QHS PRN PO CONSTIPATION Last administered on 01/08/17 09:10; Start 12/18/16 at 12:30 Hydroxyzine Pamoate (Vistaril) 25 mg BID PO Last administered on 01/11/17 19: 14; Start 12/18/16 at 21:00 Risperidone (RisperDAL) 0.25 mg PRN Q12HR PRN PO ANXIETY / AGITATION Last administered on 01/06/17 04:58; Start 12/18/16 at 13:30 Topiramate (Topamax) 12.5 mg BID PO Last administered on 12/23/16 08:45; Start 12/18/16 at 21:00; Stop 12/23/16 at 17:47; Status DC Divalproex Sodium (Depakote Er) 500 mg DAILY PO ; Start 12/19/16 at 09:00; Stop 12/19/16 at 09:00; Status DC Albuterol Sulfate (Ventolin) 2.5 mg PRN Q4HRS PRN NEB SHORTNESS OF BREATH; Start 12/18/16 at 13:45 Acetaminophen/ Aspirin/Caffeine (Excedrin Migraine) 1 tab PRN Q6HRS PRN PO HEADACHE; Start 12/18/16 at 13:45 Baclofen (Lioresal) 10 mg BID PO Last administered on 01/11/17 19:13; Start at 21:00 Ergocalciferol (Vitamin D2) 50,000 unit QMTH PO ; Start 12/21/16 at 16:00; Stop 12/21/16 at 16:00; Status DC Metoprolol Tartrate (Lopressor) 25 mg BID PO Last administered on 01/11/17 19: 14; Start 12/18/16 at 21:00 Polyethylene Glycol (miraLAX) 17 gm PRN Q12HR PRN PO CONSTIPATION Last administered on 12/20/16 17:34; Start 12/18/16 at 13:45 Senna/Docusate Sodium (Senna Plus) 1 tab Q12HR PO Last administered on 19:14; Start 12/18/16 at 21:00 Tramadol HCl (Ultram) 50 mg PRN Q6HRS PRN PO PAIN Last administered on 08:10; Start 12/18/16 at 13:45 Flecainide Acetate (Tambocor) 50 mg Q12HR PO Last administered on 01/11/17 19: 21; Start 12/18/16 at 21:00 Risperidone (RisperDAL) 0.125 mg BID PO Last administered on 01/11/17 19:13; Start 12/18/16 at 21:00 Divalproex Sodium (Depakote Sprinkles) 250 mg BID PO Last administered on 09:55; Start 12/18/16 at 21:00; Stop 12/21/16 at 12:37; Status DC Ergocalciferol (Vitamin D2) 50,000 unit Q2WKS PO Last administered on 09:32; Start 12/21/16 at 16:00 Escitalopram Oxalate (Lexapro) 5 mg DAILY PO Last administered on 12/22/16 07: 50; Start 12/20/16 at 09:00; Stop 12/22/16 at 16:47; Status DC Divalproex Sodium (Depakote Sprinkles) 375 mg BID PO Last administered on 08:46; Start 12/21/16 at 21:00; Stop 12/23/16 at 16:23; Status DC Escitalopram Oxalate (Lexapro) 10 mg DAILY PO Last administered on 01/11/17 08 :09; Start 12/23/16 at 09:00 Divalproex Sodium (Depakote Sprinkles) 500 mg BID PO Last administered on 19:14; Start 12/23/16 at 21:00 Mirtazapine (Remeron) 7.5 mg QHS PO Last administered on 12/26/16 21:58; Start 12/23/16 at 21:00; Stop 12/27/16 at 18:49; Status DC Mirtazapine (Remeron) 15 mg QHS PO Last administered on 01/11/17 19:14; Start 12/27/16 at 21:00 Trazodone HCl (Desyrel) 50 mg QHS PO Last administered on 01/11/17 19:13; Start 12/27/16 at 21:00 Active Scripts Active Reported Hydroxyzine Pamoate 25 Mg Capsule 1 Cap PO BID Depakote Sprinkle (Divalproex Sodium) 125 Mg Cap.sprink 500 Mg PO BID Trazodone Hcl 50 Mg Tablet 50 Mg PO QHS Risperidone 0.5 Mg Tablet 0.125 Mg PO BID Mirtazapine 15 Mg Tablet 15 Mg PO QHS Analgesic [place] (Methyl Salicylate/Menthol) 28 Gm Oint...g. 1 [place] TP PRN QID PRN Milk Of Magnesia (Magnesium Hydroxide) 2,400 Mg/10 Ml Oral.susp 2,400 Mg PO PRN QHS PRN Mag-Al Plus Xs Suspension (Mag Hydrox/Al Hydrox/Simeth) 30 Ml Oral.susp 15 Ml PO PRN AFTMEALHC PRN Escitalopram Oxalate 10 Mg Tablet 10 Mg PO DAILY Tylenol (Acetaminophen) 325 Mg Tablet 650 Mg PO PRN Q6HRS PRN Albuterol Sulfate Neb Soln (Albuterol Sulfate) 2.5 Mg/3 Ml Vial.neb 1 Vial NEB PRN Q4HRS PRN Tramadol Hcl (Tramadol HCl) 50 Mg Tablet 50 Mg PO PRN Q6HRS PRN Senokot-S Tablet (Sennosides/Docusate Sodium) 1 Each Tablet 1 Tab PO Q12HR Risperidone 0.5 Mg Tablet 0.25 Mg PO PRN Q12HR PRN Metoprolol Tartrate 25 Mg Tablet 25 Tab PO BID Hydroxyzine Pamoate 25 Mg Capsule 25 Mg PO BID Glycolax (Polyethylene Glycol 3350) 119 Gm Powder 17 Gm PO PRN Q12HR PRN Flecainide Acetate 100 Mg Tablet 50 Mg PO Q12HR Excedrin Migraine Caplet (Aspirin/Acetaminophen/Caffeine) 1 Each Tablet 1 Each PO PRN Q6HRS PRN Vitamin D2 (Ergocalciferol (Vitamin D2)) 50,000 Unit Capsule 50,000 Unit PO Q2WKS Baclofen 10 Mg Tablet 10 Mg PO BID Diagnosis: Problems: (1) Anxiety disorder (2) Impulse control disorder (3) Major depressive disorder, recurrent episode (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
--- NOTE | 2017-01-11 21:53 | NUR ---
Behavior Intervention Response and Plan: BIRP Note: Behavior: Assumed Care of patient, patient located in Day Room at shift change. Patient exhibited the following behavior Calm, Compliant, Cooperative. Brief assessment on rounds of vital signs, medication needs, lab studies, and pain. Treatment plan problems Dementia with Bd and Fall Risk. Intervention: Patient assessed and the following interventions initiated safety checks 15 Minute Checks Personal Alarm in place , Cognitive Assessment , Medications. Response: After interactions and interventions patient responded in the following manner, Calm , Compliant ,Cooperative. Continue to assess behaviors and condition will continue to monitor throughout the shift as needed. Plan: Continue to monitor Master Treatment Plan for patient's progress toward short term goals of Decreased Agitation, Decreased Anxiety, long term care administrator goals to return to previous living setting vs placement. Continue to assess patient for changes in above assessment. Monitor for medication needs, pain, and safety concerns. Hourly rounding performed to ensure safe environment.
[2017-01-12] MEDS: MAGNESIUM HYDROXIDE 2,400 MG/30 ML ORAL.SUSP. PO PRN (01:04)
--- NOTE | 2017-01-12 01:04 | NUR ---
Nursing Note PRN Milk of magnesia given r/t patient complaining of constipation.
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
[2017-01-12 06:15] VITALS: BP 133/84
[2017-01-12] MEDS: hydrOXYzine PAMOATE 25 MG CAPSULE PO SCH ×2 (09:48→19:34)
[2017-01-12] MEDS: ESCITALOPRAM 10 MG TABLET. PO SCH (09:49)
[2017-01-12] MEDS: risperiDONE 0.25 MG TABLET. PO SCH ×2 (09:49→19:34)
[2017-01-12] MEDS: SENNOSIDES/DOCUSATE 8.6/50MG TABLET. PO SCH ×2 (09:49→19:34)
[2017-01-12] MEDS: BACLOFEN 10 MG TABLET PO SCH ×2 (09:50→19:32)
[2017-01-12] MEDS: METOPROLOL TART IMMED RELEASE 25 MG TABLET PO SCH ×2 (09:50→19:34)
[2017-01-12] MEDS: DIVALPROEX 125 MG CAP.SPRINK PO SCH ×2 (09:51→19:32)
[2017-01-12] MEDS: FLECAINIDE 50 MG TABLET. PO SCH ×2 (09:52→19:35)
--- NOTE | 2017-01-12 10:00 | NUR ---
Behavior Intervention Response and Plan: BIRP Note: Behavior: Assumed Care of patient, patient located in Hallway at shift change. Patient exhibited the following behavior Disorganized, Interactive, Compliant. Brief assessment on rounds of vital signs, medication needs, lab studies, and pain. Treatment plan problems 1 & 2. Intervention: Patient assessed and the following interventions initiated safety checks 15 Minute Checks Cognitive Assessment , Head to toe Assessment , Medications. Response: After interactions and interventions patient responded in the following manner, Calm , Appropriate ,Compliant. Continue to assess behaviors and condition will continue to monitor throughout the shift as needed. Plan: Continue to monitor Master Treatment Plan for patient's progress toward short term goals of Decreased Agitation, Decreased Anxiety, extermination inspector goals to return to previous living setting vs placement. Continue to assess patient for changes in above assessment. Monitor for medication needs, pain, and safety concerns. Hourly rounding performed to ensure safe environment.
--- NOTE | 2017-01-12 10:00 | NUR ---
THERAPEUTIC RECREATION GROUP NOTE TITLE :Radio Hour: My Favorite ACTIVITY : Cognitive stimulation GOAL : Maintain or improve cognitive functioning, memory, imagination DURATION : 60 Minutes RESPONSE : No participation. Pt. left the group early on for the restroom and to work with Physical Therapy. She returned and was tearful and making noises. She wanted to used the restroom again, right after returning from it.
--- NOTE | 2017-01-12 11:10 | NUR ---
THERAPEUTIC RECREATION GROUP NOTE TITLE :Movement to Music: Flexibility ACTIVITY : Movement/ Exercise GOAL : Increase morale, attention, flexibility. Decrease stress/anxiety. DURATION : 20 Minutes RESPONSE : Full participation. Pt. was agreeable to join the group. She followed along to the best of her ability and needed no prompting to stay on task.
--- NOTE | 2017-01-12 11:13 | NUR ---
[facility] Social Work Discharge Planning Form Patient Name LACEY MOORE Admit Date: 12/18/16 DISCHARGE PLAN Discharge Destination: new to [facility] Assessment: completed Transportation: Facility to molded goods spot picker 01/13/17 at 9:30 DISCHARGE TO FACILITY Facility: [facility] Address: [address] [place] [id number] Contact Name: PCP: at facility w/in 10-12 days of dc Psychiatrist: at facility w/in 10-12 days of dc *Skilled orders provided
--- NOTE | 2017-01-12 14:00 | NUR ---
THERAPEUTIC RECREATION GROUP NOTE TITLE :Sing along with Rebecca ACTIVITY : Music GOAL : Increase socialization, elevate mood, stimulate memory DURATION : 60 minutes RESPONSE : Full participation. Pt. was alert and needed no prompting to stay on task. She was able to identify songs and sing along to lyrics from memory. She played the [employer] and smiled occasionally.
[2017-01-12 15:53] VITALS: BP 121/74
--- NOTE | 2017-01-12 16:26 | NUR ---
SW met w/Pt. while PT. sat in the day room to discuss dc plans set for the am. PT. was able to verbalize understanding of reason for dc to [facility] and was not upset while discussing this w/SW. JEFFERY stated SW would check in w/Pt. in the AM during breakfast.
[2017-01-12] MEDS: MIRTAZAPINE 7.5 MG TABLET. PO SCH (19:32)
[2017-01-12] MEDS: traZODone 50 MG TABLET. PO SCH (19:34)
--- NOTE | 2017-01-13 04:11 | NUR ---
Behavior Intervention Response and Plan: BIRP Note: Behavior: Assumed Care of patient, patient located in Day Room at shift change. Patient exhibited the following behavior Calm, Appropriate, Cooperative. Brief assessment on rounds of vital signs, medication needs, lab studies, and pain. Treatment plan problems 1-2. Intervention: Patient assessed and the following interventions initiated safety checks 15 Minute Checks Personal Alarm in place , Cognitive Assessment , Medications. Response: After interactions and interventions patient responded in the following manner, Calm , Compliant ,Cooperative. Continue to assess behaviors and condition will continue to monitor throughout the shift as needed. Plan: Continue to monitor Master Treatment Plan for patient's progress toward short term goals of Decreased Anxiety, Decreased Agitation, correction goals to return to previous living setting vs placement. Continue to assess patient for changes in above assessment. Monitor for medication needs, pain, and safety concerns. Hourly rounding performed to ensure safe environment.
[2017-01-13 06:29] VITALS: BP 155/79
[2017-01-13] MEDS: risperiDONE 0.25 MG TABLET. PO SCH (09:21)
[2017-01-13] MEDS: METOPROLOL TART IMMED RELEASE 25 MG TABLET PO SCH (09:21)
[2017-01-13] MEDS: hydrOXYzine PAMOATE 25 MG CAPSULE PO SCH (09:22)
[2017-01-13] MEDS: BACLOFEN 10 MG TABLET PO SCH (09:22)
[2017-01-13] MEDS: SENNOSIDES/DOCUSATE 8.6/50MG TABLET. PO SCH (09:22)
[2017-01-13] MEDS: DIVALPROEX 125 MG CAP.SPRINK PO SCH (09:22)
[2017-01-13] MEDS: ESCITALOPRAM 10 MG TABLET. PO SCH (09:22)
[2017-01-13 09:23] VITALS: BP 155/79
[2017-01-13] MEDS: FLECAINIDE 50 MG TABLET. PO SCH (09:23)
--- NOTE | 2017-01-13 09:30 | NUR ---
Behavior Intervention Response and Plan: BIRP Note: Behavior: Assumed Care of patient, patient located in Day Room at shift change. Patient exhibited the following behavior Interactive, Disorganized, Compliant. Brief assessment on rounds of vital signs, medication needs, lab studies, and pain. Treatment plan problems 1 & 2. Intervention: Patient assessed and the following interventions initiated safety checks 15 Minute Checks Cognitive Assessment , Head to toe Assessment , Medications. Response: After interactions and interventions patient responded in the following manner, Calm , Appropriate ,Compliant. Continue to assess behaviors and condition will continue to monitor throughout the shift as needed. Plan: Continue to monitor Master Treatment Plan for patient's progress toward short term goals of Decreased Agitation, Decreased Anxiety, terminal gauger supervisor goals to return to previous living setting vs placement. Continue to assess patient for changes in above assessment. Monitor for medication needs, pain, and safety concerns. Hourly rounding performed to ensure safe environment.
--- NOTE | 2017-01-13 10:45 | NUR ---
Discharge Note [facility] Patient is not currently a tobacco user. Follow up Appointment made: Date and Time 01/13/17 10:45 instructions and Social Work Discharge planning sheet sent to next level of care. [facility] contact Number for 24 hour support [phone] Discharge Packet Sent, and discusssed with patient and caregiver that includes Copies from the record of current medications with indications and frequencies, history and physical, Psychiatric Eval with reason and justification for admission, Lab values, Radiology results , follow up instructions for continuation of care, and Social Work discharge planning form: Completed Discharge Packet Faxed to Provider/Next Level of Care: [facility] Discharge Packet Faxed with discharge Order and Discharge diagnosis sent to: [facility] Discharge Packet Discussed, and report Given to: Maureen at [facility] Discharge instruction sheet was included in the packet and sent with the patient upon discharge. Any Pending lab results can be obtained by calling [phone] Discharge Summary will be sent to next care provider when available. This includes the reason for admission, DC diagnosis, and next level of care recommendations.
== END 2017-01-13 10:45 | DRG 57 ==
LOC: GEROPSY 11:35
PROVIDERS: ADMIT Psychiatry & Neurology Psychiatry; ATTEND Psychiatry & Neurology Psychiatry
DX: G10 Huntington's disease (principal); F02.81 Dementia in other diseases classified elsewhere, unspecified severity, with behavioral disturbance; F01.51 Vascular dementia, unspecified severity, with behavioral disturbance; F33.9 Major depressive disorder, recurrent, unspecified; Z68.1 Body mass index [BMI] 19.9 or less, adult; E55.9 Vitamin D deficiency, unspecified; E61.1 Iron deficiency; F41.1 Generalized anxiety disorder; F63.9 Impulse disorder, unspecified; G30.9 Alzheimer's disease, unspecified; I10 Essential (primary) hypertension; F19.10 Other psychoactive substance abuse, uncomplicated; G31.9 Degenerative disease of nervous system, unspecified; R90.82 White matter disease, unspecified; K59.00 Constipation, unspecified; Z87.440 Personal history of urinary (tract) infections
CPT/HCPCS: 36415; 80053; 80061; 80164; 81001; 82306; 82607; 83036; 83540; 83550; 83735; 84436; 84443; 84480; 85027; 86592; 86593; 87086; 93005; 97163; Q0177; 97110; 97116; 97530; 97535